=== PATIENT | male | born 1945 | race Caucasian/White ===

== ENCOUNTER 2021-04-18 08:56 | Outpatient (REF) | payer MEDICARE, SELFPAY ==
--- NOTE | ~2021-04-18 | CT_ITS ---
EXAMINATION: CT ANGIOGRAM OF THE CHEST, ABDOMEN AND PELVIS WITHOUT AND WITH CONTRAST CLINICAL INFORMATION: Abdominal aortic aneurysm without rupture. COMPARISON: 05/12/2019 CTA abdomen and pelvis, 04/22/2019 CTA neck. TECHNIQUE: Multidetector volumetric CT imaging of the chest, abdomen, and pelvis was performed before and after the administration of 100 mL of Omnipaque 350 intravenous contrast without immediate adverse reactions. 3D POSTPROCESSING: Multiple 3-D angiographic images were processed from the initial data set by the [facility] under concurrent physician supervision. DOSE LOWERING TECHNIQUES: This CT examination was performed using dose optimization techniques as appropriate, variously including the following: - Automated exposure control - Adjustment of mA and/or kV according to patient size (this includes techniques or standardized protocols for targeted exams where dose is matched to indication/reason for exam; i.e. extremities or head) - Use of iterative reconstruction technique DLP: 289 mGy-cm. FINDINGS: VASCULAR: ASCENDING AORTA: No evidence of aneurysm, dissection or stenosis. Minimal calcifications. AORTIC ARCH: Minimal atherosclerotic disease. Two-vessel branching pattern of the great vessels. The great vessels are patent. No evidence of aneurysm, dissection or stenosis of the aortic arch. DESCENDING AORTA: Calcified and noncalcified atherosclerotic disease with areas of shallow ulceration. No evidence of aneurysm, dissection or stenosis. ABDOMINAL AORTA: The patient is status post fenestrated aortobiiliac endovascular stent graft placement for abdominal aortic aneurysm. The aneurysm sac currently measures a maximum of 4.7 x 4.2 cm, previously 5.7 x 5.5 cm when similarly remeasured on the axial source images. There is limited assessment for endoleak without triple phase imaging, however the decreasing size of the aneurysm and lack of arterial phase contrast extravasation into the aneurysm sac is reassuring. CELIOMESENTERIC ARTERIES: The celiac artery and superior mesenteric artery contain stents within their proximal portions. The small size and streak artifact limits assessment within the stent, however there is contrast normally opacified the distal branches of both arteries. The inferior mesenteric artery is occluded at its origin from the aorta, however there is collateralized flow to the distal branches. RENAL ARTERIES: Both renal arteries contain stents and as mentioned above, patency within the actual stent is limited due to the small size and metallic artifact, however the distal branches of the renal arteries normally contrast-opacify and there are symmetric nephrograms identified. RIGHT ILIOFEMORAL ARTERIES: The endovascular stent graft extends into the right common iliac artery and is widely patent. The internal iliac artery is atherosclerotic and aneurysmal up to 1 cm, unchanged. Moderate atherosclerotic calcifications of the external iliac artery and common femoral artery which maintain patency. LEFT ILIOFEMORAL ARTERIES: The endovascular stent graft extends into the left common iliac artery and is patent. Severe calcified atherosclerotic disease of the left internal iliac artery proximally and patency cannot be confirmed. Contrast is seen within the internal iliac artery branches. Atherosclerotic disease at the origin of the external iliac artery with suspected moderate stenosis, similar to the prior study. Brvxuldh-fo-lyghow atherosclerotic disease continues to involve the remainder of the external iliac artery and common femoral artery which both maintain patency. Incidental note is made of a prominent left-sided welsh mortis artery. NONVASCULAR: LUNGS: There are 2 small oval perivascular nodules seen within the right lower lobe measuring 0.4 cm (series 8 image 292) and 0.6 cm (series 8 image 319). Calcified granuloma posterior left lower lobe. Mild dependent changes. Trachea is midline and central airways are patent. MEDIASTINUM: Heart size is normal. No pericardial effusion. Coronary artery calcifications. No mediastinal or hilar lymphadenopathy. Thyroid unremarkable. PLEURA: There is no pleural effusion. No pleural mass or thickening. LIVER, GALLBLADDER, AND BILIARY TREE: The liver is normal in size, shape, and attenuation. No focal hepatic lesion or biliary ductal dilatation is present. Layering material within the gallbladder lumen. No gallbladder wall-thickening or pericholecystic inflammatory changes. PANCREAS: Unremarkable SPLEEN: Unremarkable ADRENAL GLANDS: Unremarkable KIDNEYS AND URETERS: The kidneys are normal in size, shape, and attenuation. No hydronephrosis, hydroureter, or calculi seen. No perinephric stranding. Two simple Bosniak 1 right renal cysts, no further imaging followup recommended. BLADDER: Unremarkable GASTROINTESTINAL TRACT: Diverticulosis without CT evidence of diverticulitis. Appendix unremarkable. No evidence of bowel obstruction. ABDOMINAL WALL: No significant abdominal wall hernia. LYMPH NODES: No lymphadenopathy within the abdomen or pelvis by CT criteria. PELVIC VISCERA: Prostate enlargement measuring 5 cm in transverse dimension. Prostate calcifications. OSSEOUS STRUCTURES: Degenerative changes of the spine. No acute or suspicious osseous abnormality. CT/CT angio abdomen pelvis IMPRESSION: 1. The patient is status post fenestrated endovascular stent graft repair of the abdominal aortic aneurysm as detailed above. The stents within the celiac axis, superior mesenteric artery and renal arteries are presumably patent as the distal branches opacify with contrast material. Metallic artifact and stent small size limit assessment within the stent itself. 2. No evidence of endoleak on this single-phase CT and the aneurysm sac has significantly decreased in size. 3. Other chronic and nonacute findings as above.
[2021-04-18 10:17] LABS: Blood Urea Nitrogen 21 mg/dL (9-16); Estimated Glomerular Filt Rate 53
[2021-04-18] MEDS: iohexoL 350 MG/ML 100 ML INFUS..BTL IV (10:43)
== END 2021-04-18 08:57 | disposition home or self-care (01) ==
LOC: HO.CT 08:56
PROVIDERS: PCP Internal Medicine; Visit Provider Surgery Vascular Surgery
DX: I71.4 Abdominal aortic aneurysm, without rupture (principal)
CPT/HCPCS: 36415; 71275; 74174; 82565; 84520; Q9967

== ENCOUNTER → 2021-07-31 11:03 | Outpatient (BNVA) | payer MEDICARE, SELFPAY | PROVIDERS: PCP Internal Medicine; Visit Provider Surgery Vascular Surgery | DX: I65.23 Occlusion and stenosis of bilateral carotid arteries (principal); Z86.79 Personal history of other diseases of the circulatory system | CPT/HCPCS: 99212 ==

== ENCOUNTER 2022-03-08 14:17 | Outpatient (REF) | payer MEDICARE, SELFPAY ==
[2022-03-08 15:00] LABS: Blood Urea Nitrogen 19 mg/dL (9-16); Estimated Glomerular Filt Rate 53
== END 2022-03-08 14:18 | disposition home or self-care (01) ==
LOC: HO.LAB 14:17
PROVIDERS: PCP Internal Medicine; Visit Provider Surgery Vascular Surgery
DX: I71.40 Abdominal aortic aneurysm, without rupture, unspecified (principal)
CPT/HCPCS: 36415; 82565; 84520

== ENCOUNTER 2022-03-14 08:18 | Outpatient (REF) | payer MEDICARE, SELFPAY ==
--- NOTE | ~2022-03-14 | CT_ITS ---
EXAMINATION: CTA CHEST, ABDOMEN AND PELVIS WITH CONTRAST CLINICAL INFORMATION: Reason for Exam I71.4 - Abdominal aortic aneurysm, without rupture COMPARISON: CTA of the chest, abdomen and pelvis 04/18/2021. TECHNIQUE: Initial noncontrast CT through the abdomen and pelvis was performed followed by Multidetector volumetric imaging from the thoracic inlet through the pubic symphysis following administration of 85 ml Omnipaque 350. Sagittal and coronal reformatted images were obtained on the technologist's workstation. Additional 2-D coronal and sagittal reformatted images and axial 3-D maximum intensity projection MIP images are generated on the CT workstation. This CT examination was performed using dose optimization techniques as appropriate, variously including the following: *Automated exposure control *Adjustment of mA and/or kV according to patient size (this includes techniques or standardized protocols for targeted exams where dose is matched to indication/reason for exam; i.e. extremities or head) *Use of iterative reconstruction technique DLP: 559 mGy-cm VASCULAR FINDINGS: The thoracic aorta appears unremarkable without aneurysm or dissection. A two-vessel branching pattern of the aortic arch is seen with a short common trunk involving the innominate and left carotid. The great vessels are widely patent. Although not carried out for evaluation of the pulmonary arteries or pulmonary veins, no abnormality is seen. Again noted is a fenestrated aorto-biiliac stent graft beginning at the thoracoabdominal junction. The celiac, SMA and bilateral renal arteries are stented with continued good distal perfusion of branches. There is no evidence of an endoleak. Maximal sac size dimension is 4.1 cm, unchanged from prior. The common iliac stents are widely patent. The left internal iliac artery is diseased but patent distally. An origin right internal iliac artery stenosis is present and unchanged with post-stenotic dilatation. External iliac arteries and common femoral arteries demonstrate [id number] calcific plaque without significant stenosis. FINDINGS: CHEST: LUNG: Again seen are two 4 mm right lower lobe lung nodules, unchanged from prior (6:269 and 291) The lungs are otherwise clear without focal opacity or nodule. MEDIASTINUM: The mediastinum is normal. The central vascular structures are unremarkable. No hilar or mediastinal lymphadenopathy. PERICARDIUM/PLEURA: No significant effusion. No pleural mass or thickening. CHEST WALL/AXILLA: Unremarkable ABDOMEN/PELVIS: PERITONEAL SPACE: No significant free air or free fluid identified. LIVER, GALLBLADDER, BILIARY TREE: The liver is normal in size, shape, and attenuation. No focal hepatic lesion or biliary ductal dilatation is present. The gallbladder contains layering high density material, possibly gallstones but is otherwise unremarkable with no evidence of pericholecystic inflammatory changes. PANCREAS: Unremarkable. SPLEEN: Unremarkable. ADRENAL GLANDS: Unremarkable. KIDNEYS AND URETERS: The kidneys are normal in size, shape, and attenuation. Again noted are benign Bosniak class I right cysts which need no further imaging. No solid renal masses are seen. No hydronephrosis, hydroureter, or calculi seen. No perinephric stranding. BLADDER: Unremarkable. GASTROINTESTINAL TRACT: The small and large bowel are unremarkable. The appendix is unremarkable. ABDOMINAL WALL: No significant hernia is appreciated. LYMPH NODES: No lymphadenopathy. VASCULAR: The aorta appears normal.. The IVC appears unremarkable. PELVIC VISCERA: Moderate benign prostatic hyperplasia is again noted. OSSEUS STRUCTURES: Mild degenerative changes are noted in the spine. No bony destructive lesions are seen. CT/CT angio abdomen pelvis IMPRESSION: Stable appearance of fenestrated aorto-biiliac stent graft with no endoleak visualized and stable sac size. The stented celiac SMA and bilateral renal arteries remain widely patent. Other incidental findings described above. Fleischner guidelines were followed.
[2022-03-14] MEDS: iohexoL 350 MG/ML 100 ML INFUS..BTL IV (09:18)
== END 2022-03-14 08:19 | disposition home or self-care (01) ==
LOC: HO.CT 08:18
PROVIDERS: PCP Internal Medicine; Visit Provider Surgery Vascular Surgery
DX: I71.40 Abdominal aortic aneurysm, without rupture, unspecified (principal)
CPT/HCPCS: 71275; 74174; Q9967

== ENCOUNTER 2022-04-15 10:16 | Outpatient (REF) | payer MEDICARE, SELFPAY ==
--- NOTE | ~2022-04-15 | US_ITS ---
EXAMINATION: US EXTRACRANIAL CAROTID DUPLEX, BILATERAL CLINICAL INFORMATION: Atherosclerotic disease, carotid bruit COMPARISON: None TECHNIQUE: Real-time ultrasound and Doppler techniques (integrating B-mode 2-D vascular images, Doppler spectral analysis and color-flow Doppler imaging) were utilized to interrogate the extracranial carotid arteries, the vertebral arteries and proximal subclavian arteries bilaterally. The degree of stenosis is determined by criteria similar to NASCET. FINDINGS: Right Side: 1. There is moderate atherosclerotic plaque seen in the bifurcation/proximal ICA region. 2. The common carotid artery PSV proximally is 62 cm/s and distally 75 cm/s. 3. The proximal internal carotid artery velocities are 130 cm/s systolic and 31 cm/s diastolic. 4. The proximal external carotid artery PSV is 215 cm/s. 5. The vertebral artery shows antegrade flow. 6. The subclavian artery waveforms are normal. Left Side: 1. There is moderate atherosclerotic plaque seen in the bifurcation/proximal ICA region. 2. The common carotid artery PSV proximally is 70 cm/s and distally 72 cm/s. 3. The proximal internal carotid artery velocities are 129 cm/s systolic and 27 cm/s diastolic. 4. The proximal external carotid artery PSV is 93 cm/s. 5. The vertebral artery shows antegrade flow. 6. The subclavian artery waveforms are normal. US/US carotid duplex BI IMPRESSION: 1. RIGHT: Moderate, hemodynamically significant stenosis of the proximal right internal carotid artery corresponding to a 50-79% stenosis by velocity criteria. 2. LEFT: Moderate, hemodynamically significant stenosis of the proximal left internal carotid artery corresponding to a 50-79% stenosis by velocity criteria.
== END 2022-04-15 10:17 | disposition home or self-care (01) ==
LOC: HO.US 10:16
PROVIDERS: Visit Provider Surgery Vascular Surgery
DX: I65.23 Occlusion and stenosis of bilateral carotid arteries (principal)
CPT/HCPCS: 93880

== ENCOUNTER → 2022-04-23 09:41 | Outpatient (BNVA) | payer MEDICARE, SELFPAY | PROVIDERS: PCP Internal Medicine; Visit Provider Surgery Vascular Surgery | DX: I65.23 Occlusion and stenosis of bilateral carotid arteries (principal); I71.40 Abdominal aortic aneurysm, without rupture, unspecified | CPT/HCPCS: 99212 ==

== ENCOUNTER 2023-02-26 10:00 | Outpatient (REF) | payer MEDICARE, SELFPAY ==
[2023-02-26 10:42] LABS: Blood Urea Nitrogen 17 mg/dL (9-16)
== END 2023-02-26 10:01 | disposition home or self-care (01) ==
LOC: HO.LAB 10:00
PROVIDERS: PCP Internal Medicine; Visit Provider Surgery Vascular Surgery
DX: I71.40 Abdominal aortic aneurysm, without rupture, unspecified (principal)
CPT/HCPCS: 36415; 84520

== ENCOUNTER 2023-03-04 08:53 | Outpatient (REF) | payer MEDICARE, SELFPAY ==
--- NOTE | ~2023-03-04 | CT_ITS ---
STUDY PERFORMED: CTA ABDOMEN AND PELVIS WITHOUT AND WITH CONTRAST HISTORY: Abdominal aortic aneurysm follow-up. DESCRIPTION: Routine abdomen and pelvis CTA protocol with contrast was performed. 80 mL of Omnipaque 350 was administered. 3D POSTPROCESSIN-D MIP images were processed from the initial data set by the radiologic technologist on the technologist workstation under concurrent physician supervision. DOSE LOWERING TECHNIQUES: This CT examination was performed using dose optimization techniques as appropriate, variously including the following: - Automated exposure control - Adjustment of mA and/or kV according to patient size (this includes techniques or standardized protocols for targeted exams where dose is matched to indication/reason for exam; i.e. extremities or head) - Use of iterative reconstruction technique DOSE LENGTH PRODUCT: 421.5 mGy-cm COMPARISON: CTA abdomen and pelvis 03/14/2022. FINDINGS: VASCULAR: ABDOMINAL AORTA: Infrarenal abdominal aortic aneurysm managed with a fenestrated aortobiiliac endograft. The excluded aneurysm sac has decreased in size measuring 4.1 x 3.7 cm proximally compared to 4.4 x 3.9 cm and 4.0 x 3.8 cm distally compared to 4.3 x 4.3 cm. A multiphase exam was not acquired. There is no evidence of endoleak on single phase imaging. There is stable appearing lamellated calcium in the excluded aneurysm sac. RIGHT ILIAC ARTERY: Good apposition of the stent graft limb in the common iliac artery. There is mild to moderate atherosclerosis without hemodynamically significant disease in the iliac and common femoral arteries. There is a mild to moderate stenosis of the proximal right SFA.. 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 LEFT ILIAC ARTERY: Good apposition of the stent graft limb in the common iliac artery. There is mild to moderate atherosclerosis without hemodynamically significant disease in the external iliac and common femoral arteries. The internal iliac artery is occluded proximally and then reconstitutes. CELIOMESENTERIC ARTERIES: The celiac stent is patent. The celiac branch vessels are patent. The SMA stent is patent. The inferior mesenteric artery arises from the excluded aneurysm sac and then reconstitutes distally. RENAL ARTERIES: The right renal artery stent is patent. The left renal artery stent is patent. The nephrograms are symmetric. NONVASCULAR: Lung Bases: Motion artifact obscures the lung bases. Tiny calcified granulomas in the bilateral lung bases. No follow-up imaging as per Fleischner Society guidelines. Liver, Gallbladder and Biliary Tree: The liver is normal in size, shape, and attenuation. No focal hepatic lesion or biliary ductal dilatation is present. Cholelithiasis without evidence of cholecystitis. Pancreas: No discrete pancreatic mass. No ductal dilatation. Spleen: Normal. Adrenal Glands: Mild smooth thickening of the bilateral adrenal glands without discrete measurable nodule. Kidneys and Ureters: Symmetric nephrograms. Simple right renal cyst. No follow-up imaging is recommended. No nephrolithiasis or hydronephrosis. Bladder: Unremarkable. Gastrointestinal Tract: Small bowel is normal in caliber. The large bowel is normal in caliber. Mild colonic diverticulosis. No inflammatory change. Abdominal Wall: No significant hernia is appreciated. Lymph Nodes: No lymphadenopathy. Pelvic Viscera: The prostate is enlarged. Osseous Structures: Degenerative changes in the spine. CT/CT angio abdomen pelvis IMPRESSION: Infrarenal abdominal aortic aneurysm status post endograft. The excluded aneurysm sac has decreased in size with no visible endoleak on single phase imaging. Fleischner guidelines were followed.
[2023-03-04] MEDS: iohexoL 350 MG/ML 100 ML INFUS..BTL IV (09:59)
[2023-03-05 10:03] LABS: Creatinine POC 0.9 mg/dL (0.5-1.4); GFR POC 60
== END 2023-03-04 08:54 | disposition home or self-care (01) ==
LOC: HO.CT 08:53
PROVIDERS: PCP Internal Medicine; Visit Provider Surgery Vascular Surgery
DX: I71.40 Abdominal aortic aneurysm, without rupture, unspecified (principal)
CPT/HCPCS: 74174; 82565; Q9967

== ENCOUNTER 2023-04-03 09:47 | Outpatient (REF) | payer MEDICARE, SELFPAY ==
--- NOTE | ~2023-04-03 | US_ITS ---
EXAMINATION: US EXTRACRANIAL CAROTID DUPLEX, BILATERAL CLINICAL INFORMATION: Bilateral carotid stenoses. COMPARISON: 04/15/2022. TECHNIQUE: Real-time ultrasound and Doppler techniques (integrating B-mode 2-D vascular images, Doppler spectral analysis and color-flow Doppler imaging) were utilized to interrogate the extracranial carotid arteries, the vertebral arteries and proximal subclavian arteries bilaterally. The degree of stenosis is determined by criteria similar to NASCET. FINDINGS: Right Side: 1. There is moderate atherosclerotic plaque seen in the bifurcation/proximal ICA region. 2. The common carotid artery PSV proximally is 72 cm/s and distally 81 cm/s. 3. The proximal internal carotid artery velocities are 130 cm/s systolic and 22 cm/s diastolic. 4. The proximal external carotid artery PSV is 305 cm/s. 5. The vertebral artery shows antegrade flow. 6. The subclavian artery waveforms are normal. Left Side: 1. There is moderate atherosclerotic plaque seen in the bifurcation/proximal ICA region. 2. The common carotid artery PSV proximally is 78 cm/s and distally 55 cm/s. 3. The proximal internal carotid artery velocities are 149 cm/s systolic and 28 cm/s diastolic. 4. The proximal external carotid artery PSV is 83 cm/s. 5. The vertebral artery shows antegrade flow. 6. The subclavian artery waveforms are normal. When comparison is made to the 04/15/2022 study, disease category on both sides is unchanged. US/US carotid duplex BI IMPRESSION: 1. RIGHT: Moderate, hemodynamically significant stenosis of the proximal right internal carotid artery corresponding to a 50-79% stenosis by velocity criteria. A right external carotid artery stenosis is present with elevated velocities increasing from 215 to 305 cm/s. 2. LEFT: Moderate, hemodynamically significant stenosis of the proximal left internal carotid artery corresponding to a 50-79% stenosis by velocity criteria. 3. When comparison is made to the prior study, disease category on both sides is unchanged.
== END 2023-04-03 09:48 | disposition home or self-care (01) ==
LOC: HO.US 09:47
PROVIDERS: PCP Internal Medicine; Visit Provider Surgery Vascular Surgery
DX: I65.23 Occlusion and stenosis of bilateral carotid arteries (principal)
CPT/HCPCS: 93880

== ENCOUNTER 2023-05-06 08:53 | Outpatient (AMB) | payer MEDICARE, SELFPAY ==
[2023-05-06 08:54] VITALS: BP 134/64; PULSE 60; O2SAT 97; BMI 27.6
--- NOTE | 2023-05-06 08:54 | MHC.OFFVIS ---
Intake Vital Signs 05/06/23 08:54 Height 5 ft 5 in Weight 166 lb BMI 27.6 BP 134/64 Blood Pressure Location Lt brachial Position Sitting Pulse 60 Pulse Source Pulse Oximeter Pulse Oximetry (%) 97 Oxygen Delivery Method Room Air Intake Visit Reasons: 1 yr follow up carotid & AAA Intake Note: 1 year follow up carotid stenosis and AAA s/p Carotid US 04/03/23 and CTA Abd/pelvis 03/04/23 w/ hx of 08/25/2019 Fenestrated endograft repair aorta @ [facility] by Dr. Caal. Pt states no issues Accompanied by: Spouse Allergies No Known Allergies Allergy (Verified 05/06/23 09:04) HPI 1 yr follow up carotid & AAA HPI Details Very pleasant 77-year-old gentleman presents for routine surveillance follow-up regarding his aortic aneurysm in carotids. It has been nearly 3 years since he had a fenestrated aortic endograft placed at [facility]. He has been also following me in terms of his carotids. He is asymptomatic. Currently following healthy regiment and he has lost nearly 15 lb through diet and exercise. He now presents for routine surveillance follow-up. [facility] Medical History Glaucoma Neuropathy Elevated prostate specific antigen (PSA) CKD (chronic kidney disease) Benign neoplasm of colon Gout PAD (peripheral artery disease) HTN (hypertension) CVD (cardiovascular disease) Surgical History Hx of tonsillectomy H/O tooth extraction Hx of colonoscopy Family History Daughter No problems noted. Father No problems noted. Mother No problems noted. Social History Patient Tobacco Use Status: Former Tobacco user Tobacco use type: Cigarette Review of Systems Const All systems reviewed & are unremarkable except as noted in HPI and below Reports no additional complaints ENT Reports Normal hearing present Card Denies chest pain, Denies chest pain at rest, Denies chest pain with activity and Denies pedal edema Resp Denies cough GI Denies abdominal pain Musc Denies abnormal gait, Denies muscle cramps and Denies radiating pain into limb Skin/Breast Denies skin ulcer and Denies wounds Neuro Reports Normal hearing present and Denies abnormal gait Psych Reports no additional complaints Physical Exam Vital Signs: Last Vital Signs Pulse 60 05/06/23 08:54 BP 134/64 05/06/23 08:54 Pulse Ox 97 05/06/23 08:54 Oxygen Delivery Method Room Air 05/06/23 08:54 BMI result Body Mass Index 27.6 Const General: cooperative, healthy appearing and comfortable Orientation/consciousness: oriented to person, oriented to place and oriented to time HEENT Head: Yes normal to inspection Neck Neck: Yes normal visual inspection Carotids: no bruits Chest Chest palpation & inspection: normal inspection of the chest Resp Effort & Inspection: normal respiratory effort and able to speak in complete sentences Auscultation: clear to auscultation bilaterally, no crackles, no rales, no rhonchi and no wheezes Cardio Rate: regular rate Rhythm: regular rhythm Heart sounds: S1 normal heart sound present and S2 normal heart sound present Bruits: no carotid bruits Peripheral pulses: Peripheral pulses 2+ throughout GI Inspection: Yes normal to inspection Skin Wounds: no wounds Hair: normal Neuro General: oriented to person, oriented to place and oriented to time Cranial nerves: Yes CN's II-XII intact bilaterally and Yes Normal hearing present Cognition (Neuro): normal cognition Motor exam (neuro): 5/5 motor strength present throughout Extrem Other: venous exam: No significant superficial varicosities or spider telangiectasias, minimal edema General: No clubbing, No cyanosis and No edema Psych Appearance: grossly normal Mental Status: mental status grossly normal Speech and movement: Normal speech and movement present Results Reviewed Results Reviewed: CT angiogram dated 03/04/2023 demonstrates aortic endograft appropriately placed with no evidence of endoleak. Carotid ultrasound dated 04/03/2023 demonstrates right-sided and left-sided stenosis of 50-79% with a peak systolic velocity on the right of 130 and on the left of 149 leading me to believe both sides are closer to the 50% brynn. Written report and images of both were reviewed. Assessment & Plan Assessment & Plan (1) Abdominal aortic aneurysm: Comment: 08/25/2019 - fenestrated endograft repair aorta performed at [facility] Code(s): I71.4 - Abdominal aortic aneurysm, without rupture Qualifiers: Abdominal aorta location: unspecified Presence of rupture: without rupture Qualified Code(s): I71.40 - Abdominal aortic aneurysm, without rupture, unspecified Plan: In short patient appears to be doing well with his fenestrated aortic endograft. Has no interval issues. Surveillance CT scan demonstrates appropriately placed with no evidence of endoleak. Will plan for surveillance follow-up in 1 year's time. (2) Bilateral carotid artery stenosis: Code(s): I65.23 - Occlusion and stenosis of bilateral carotid arteries Plan: In short patient has asymptomatic carotid disease. We have reviewed signs and symptoms of a stroke. We also discussed risk factor modification inclusive a healthy diet low in cholesterol. The patient will follow up with us with surveillance ultrasound of the carotids 1 year. Should there be any changes or signs or symptoms of a stroke we will be happy to see them back sooner. Thank you for allowing us to participate in this patient's care. If there are any questions or concerns please do not hesitate to contact us. Orders: Orders CT angio abdomen pelvis 364 Days I71.40 - Abdominal aortic aneurysm, without rupture, unspecified US carotid duplex BI 364 Days I65.23 - Occlusion and stenosis of bilateral carotid arteries Blood Urea Nitrogen 364 Days I71.40 - Abdominal aortic aneurysm, without rupture, unspecified Creatinine 364 Days I71.40 - Abdominal aortic aneurysm, without rupture, unspecified Coding Level of Care Code Est Pt Level 4 (66088) Diagnoses Abdominal aortic aneurysm (AAA) without rupture, unspecified part I71.40 Abdominal aorta location: unspecified Presence of rupture: without rupture Bilateral carotid artery stenosis I65.23
== END 2023-05-06 09:38 | disposition home or self-care (01) ==
PROVIDERS: PCP Internal Medicine; Visit Provider Surgery Vascular Surgery
DX: I71.40 Abdominal aortic aneurysm, without rupture, unspecified (principal); I65.23 Occlusion and stenosis of bilateral carotid arteries
CPT/HCPCS: 99214

== ENCOUNTER → 2023-05-06 08:53 | Outpatient (BNVA) | payer MEDICARE, SELFPAY | PROVIDERS: PCP Internal Medicine; Visit Provider Surgery Vascular Surgery | DX: I65.23 Occlusion and stenosis of bilateral carotid arteries (principal); I71.40 Abdominal aortic aneurysm, without rupture, unspecified | CPT/HCPCS: 99212 ==

== ENCOUNTER 2024-04-26 09:44 | Outpatient (REF) | payer MEDICARE, SELFPAY ==
--- NOTE | ~2024-04-26 | US_ITS ---
EXAMINATION: US EXTRACRANIAL CAROTID DUPLEX, BILATERAL CLINICAL INFORMATION: Carotid stenosis. COMPARISON: 04/15/2022 and 04/03/2023. TECHNIQUE: Real-time ultrasound and Doppler techniques (integrating B-mode 2-D vascular images, Doppler spectral analysis and color-flow Doppler imaging) were utilized to interrogate the extracranial carotid arteries, the vertebral arteries and proximal subclavian arteries bilaterally. The degree of stenosis is determined by criteria similar to NASCET. FINDINGS: Right Side: 1. There is moderate atherosclerotic plaque seen in the bifurcation/proximal ICA region. 2. The common carotid artery PSV proximally is 60 cm/s and distally 81 cm/s. 3. The proximal internal carotid artery velocities are 160 cm/s systolic and 35 cm/s diastolic. 4. The proximal external carotid artery PSV is 302 cm/s. 5. The vertebral artery shows antegrade flow. 6. The subclavian artery waveforms are normal. Left Side: 1. There is severe atherosclerotic plaque seen in the bifurcation/proximal ICA region. 2. The common carotid artery PSV proximally is 44 cm/s and distally 45 cm/s. 3. The proximal internal carotid artery velocities are 168 cm/s systolic and 27 cm/s diastolic. 4. The proximal external carotid artery PSV is 168 cm/s. 5. The vertebral artery shows antegrade flow. 6. The subclavian artery waveforms are normal. US/US carotid duplex BI IMPRESSION: 1. Right: Moderate, hemodynamically significant stenosis of the proximal right internal carotid artery corresponding to a 50-79% stenosis by velocity criteria. 2. Left: Moderate, hemodynamically significant stenosis of the proximal left internal carotid artery corresponding to a 50-79% stenosis by velocity criteria. 3. There is no change in the category severity of disease when compared to the previous study dated 04/03/2023. Electronically signed by: Scott Garcia MD 04/29/2024 11:53 AM EST
[2024-04-26 12:05] LABS: Blood Urea Nitrogen 18 mg/dL (9-16); Estimated Glomerular Filt Rate 52
== END 2024-04-26 09:45 | disposition home or self-care (01) ==
LOC: HO.US 09:44
PROVIDERS: PCP Internal Medicine; Visit Provider Surgery Vascular Surgery
DX: I65.23 Occlusion and stenosis of bilateral carotid arteries (principal); I71.40 Abdominal aortic aneurysm, without rupture, unspecified
CPT/HCPCS: 36415; 82565; 84520; 93880

== ENCOUNTER 2024-05-03 10:07 | Outpatient (REF) | payer MEDICARE, SELFPAY ==
[2024-05-03] MEDS: iohexoL 350 MG/ML 100 ML INFUS..BTL IV (10:54)
== END 2024-05-03 10:08 | disposition home or self-care (01) ==
LOC: HO.CT 10:07
PROVIDERS: PCP Internal Medicine; Visit Provider Surgery Vascular Surgery
DX: I71.40 Abdominal aortic aneurysm, without rupture, unspecified (principal)
CPT/HCPCS: 74174; Q9967

== ENCOUNTER → 2024-05-03 10:10 | Outpatient (BNV) | payer MEDICARE, SELFPAY | PROVIDERS: PCP Internal Medicine; Visit Provider Radiology Diagnostic Radiology | DX: I71.40 Abdominal aortic aneurysm, without rupture, unspecified (principal) | CPT/HCPCS: 74174 ==

== ENCOUNTER 2024-05-18 10:03 | Outpatient (AMB) | payer MEDICARE, SELFPAY ==
--- NOTE | 2024-05-18 10:05 | A.OFFVIS_ITS ---
Vital Signs 05/18/24 10:06 Height 5 ft 5 in Weight 166 lb BMI 27.6 Intake Visit Reasons: 1yr follow up s/p Carotid 04/26/24 Intake Note: 1 yr carotid follow up s/p US 04/26/24. No complaints. Accompanied by: Spouse Allergies No Known Allergies Allergy (Verified 05/18/24 10:12) HPI HPI 1yr follow up s/p Carotid 04/26/24: Details: Very pleasant 78-year-old gentleman presents for annual surveillance follow-up regarding his aortic aneurysm and carotid disease. He has had annual surveillance follow-up. His aortic endograft was placed at [facility] nearly 4 years ago with fenestration. He has been doing extremely well since that time. He now presents for routine follow-up. [facility] Medical History Glaucoma Neuropathy Elevated prostate specific antigen (PSA) CKD (chronic kidney disease) Benign neoplasm of colon Gout PAD (peripheral artery disease) HTN (hypertension) CVD (cardiovascular disease) Surgical History Hx of tonsillectomy H/O tooth extraction Hx of colonoscopy Family History Daughter No problems noted. Father No problems noted. Mother No problems noted. Social History Patient Tobacco Use Status: Former Tobacco user Tobacco use type: Cigarette Review of Systems Const All systems reviewed & are unremarkable except as noted in HPI and below Reports no additional complaints ENT Reports Normal hearing present Card Denies chest pain, Denies chest pain at rest, Denies chest pain with activity and Denies pedal edema Resp Denies cough GI Denies abdominal pain Musc Denies abnormal gait, Denies muscle cramps and Denies radiating pain into limb Skin/Breast Denies skin ulcer and Denies wounds Neuro Reports Normal hearing present and Denies abnormal gait Psych Reports no additional complaints Physical Exam Vital Signs: BMI result Body Mass Index 27.6 Const General: cooperative, healthy appearing and comfortable Orientation/consciousness: oriented to person, oriented to place and oriented to time HEENT Head: Yes normal to inspection Neck Neck: Yes normal visual inspection Carotids: no bruits Chest Chest palpation & inspection: normal inspection of the chest Resp Effort & Inspection: normal respiratory effort and able to speak in complete sentences Auscultation: clear to auscultation bilaterally, no crackles, no rales, no rhon chi and no wheezes Cardio Rate: regular rate Rhythm: regular rhythm Heart sounds: S1 normal heart sound present and S2 normal heart sound present Bruits: no carotid bruits Peripheral pulses: Peripheral pulses 2+ throughout GI Inspection: Yes normal to inspection Skin Wounds: no wounds Hair: normal Neuro General: oriented to person, oriented to place and oriented to time Cranial nerves: Yes CN's II-XII intact bilaterally and Yes Normal hearing present Cognition (Neuro): normal cognition Motor exam (neuro): 5/5 motor strength present throughout Extrem Other: venous exam: No significant superficial varicosities or spider telangiectasias, minimal edema General: No clubbing, No cyanosis and No edema Psych Appearance: grossly normal Mental Status: mental status grossly normal Speech and movement: Normal speech and movement present Results Reviewed Results Reviewed: CT angiogram dated 05/03/2024 demonstrates no evidence of endoleak. Images were reviewed only. It has been over 16 days yet radiology has not provided a report. Carotids demonstrate bilateral 50-79% stenosis with a peak systolic of 160 on the right and 168 on the left. Written report and images were reviewed. Assessment & Plan Assessment & Plan (1) Abdominal aortic aneurysm: Comment: 08/25/2019 - fenestrated endograft repair aorta performed at [facility] Code(s): I71.4 - Abdominal aortic aneurysm, without rupture Category: Medical Qualifiers: Abdominal aorta location: unspecified Presence of rupture: without rupture Qualified Code(s): I71.40 - Abdominal aortic aneurysm, without rupture, unspecified Plan: In short patient has stable aortic endograft. We have discussed the pathophysiology of aortic aneurysms and the risk of ruptures. We have discussed rupture risk based on size. In addition we have discussed conservative measures and risk factor modification for prevention of increase in size of the aneurysm. the patient is scheduled for surveillance follow-up in approximately 1 year. Thank you for allowing us to participate in the care of this patient (2) Bilateral carotid artery stenosis: Code(s): I65.23 - Occlusion and stenosis of bilateral carotid arteries Category: Medical Plan: In short patient has asymptomatic carotid disease. We have reviewed signs and symptoms of a stroke. We also discussed risk factor modification inclusive a healthy diet low in cholesterol. The patient will follow up with us with surveillance ultrasound of the carotids 1 year. Should there be any changes or signs or symptoms of a stroke we will be happy to see them back sooner. Thank you for allowing us to participate in this patient's care. If there are any questions or concerns please do not hesitate to contact us. Orders: Orders CT angio abdomen pelvis 1 Year I71.40 - Abdominal aortic aneurysm, without rupture, unspecified US carotid duplex BI 1 Year I65.23 - Occlusion and stenosis of bilateral carotid arteries Blood Urea Nitrogen 1 Year I71.40 - Abdominal aortic aneurysm, without rupture, unspecified Creatinine 1 Year I71.40 - Abdominal aortic aneurysm, without rupture, unspecified Coding Level of Care Code Est Pt Level 4 (58931) Complex EM visit Add On G2211 Diagnoses Abdominal aortic aneurysm (AAA) without rupture, unspecified part I71.40 Abdominal aorta location: unspecified Presence of rupture: without rupture Bilateral carotid artery stenosis I65.23
[2024-05-18 10:06] VITALS: BMI 27.6
--- OUTSIDE RECORDS SUMMARY | 2024-05-18 10:08 | XMS_ITS | Continuity of Care Document ---
Author Name [facility] Organization [facility] Care Team Providers Care Bailer Operators Supervisor Name Role Phone [facility] Unavailable Unavailable Problems Combined list of problems from Department of Defense and Veterans Affairs facilities. It does not include entries that were removed or entered in error. Problem Status Onset Date Problem Type Date of Resolution Comments Source Tubular adenoma of colon Active 05/25/20 12 Condition May 11, 2018 Entered By: Wilmer GRIDER Comment: due 05/18-complete d [facility] Benign essential hypertension Active Condition [facility] Bilateral cataracts Active Condition [facility] Bilateral hearing loss Active Condition Jun 27, 2023 Entered By: CHICA SEGOVIA Comment: wears hearing aids [facility] Cervicalgia Active Condition [facility] Chronic kidney disease stage 3 Active Condition [facility] Degeneration of intervertebral disc Active Condition [facility] Elevated PSA Active Condition Jan 30, 2015 Entered By: Wilmer GRIDER Comment: neena Keys 2014 Entered By: Wilmer GRIDER Comment: PSA as high as 12, neg biospsies [facility] Glaucoma Active Condition Jun 27 Entered By: CHICA SEGOVIA Comment: astigmatism [facility] Gout Active Condition [facility] History of circulatory system disease Active Condition Jun 27, 2023 Entered By: CHICA SEGOVIA Comment: hx AAA with repair; no longer requires Plavix per vascular surgery [facility] Raynaud's disease Active Condition [facility] Under care of doctor Active Condition Jun 27, 2023 Entered By: CHICA SEGOVIA Comment: community PCP Dr. Thomas 2023 Entered By: CHICA SEGOVIA Comment: nephrology Dr. Santana 2023 Entered By: CHICA SEGOVIA Comment: Kay 2023 Entered By: CHICA SEGOVIA Comment: vascular surgery Dr. Knox 2023 Entered By: CHICA SEGOVIA Comment: ophthamology [facility] Shingles Inactive Condition 06/26/2023 [facility] Diagnosis: ICD-10-CM I10 Essential (primary) hypertension Active Diagnosis [place] Medications Combined list of outpatient medications from Department of Defense and Veterans Affairs facilities.Medications provided include 1) outpatient medications from the last 15 months, and 2) patient-reported medications. Medication Details Route Status Patient Instructions Prescription Expires Prescription Number Last Dispense Date Ordering Provider Order Date Order Qty Source ALLOPURINOL 100MG TAB TAKE ONE TABLET BY MOUTH DAILY [place]AL ACTIVE [place] [facility] AMLODIPINE BESYLATE 10MG TAB TAKE ONE TABLET BY MOUTH ONCE DAILY ORAL [place]IVE [place] [facility] ASPIRIN 81MG TAB,EC TAKE ONE TABLET BY MOUTH ONCE DAILY ORAL ACTIVE MATT-GR SHARATH,CYN [place] 2018 [facility] ATORVASTATI N CA 80MG TAB TAKE ONE-HALF TABLET BY MOUTH AT BEDTIME ORAL ACTIVE MATT[place]HCYN [place] 2021 [facility] CARVEDILOL 6.25MG TAB TAKE ONE TABLET BY MOUTH TWICE DAILY ORAL ACTIVE MATT-GR SHARAHT,[place] [facility] LATANOPROST 0.005% SOLN,OPH INSTILL 1 DROP INTO EACH EYE DAILY OPHTHA LMIC ACTIVE [place]ATT[place] [facility] Immunizations Combined list of available immunizations from the Department of Defense and Veterans Affairs facilities. Immunization Series Date Given Administered By Site Reaction Lot Number CVX Code Drug Particle Board Supervisor Status Comments Source INFLUENZA, UNSPECIFIED FORMULATION 2023 88 complet ed [facility] INFLUENZA, UNSPECIFIED FORMULATION 2022 88 complet ed [facility] TDAP 2022 115 complet ed [facility] INFLUENZA, UNSPECIFIED FORMULATION 2021 88 complet ed [facility] COVID-19 (MODERNA), MRNA, LNP-S, PF, 100 MCG OR 50 MCG DOSE 3 2020 207 complet ed MOD; [id number]; 2 [place] COVID-19 (MODERNA), MRNA, LNP-S, PF, 100 MCG/0.5 ML DOSE 2 2020 207 complet ed MOD; [id number]; 1 [facility] COVID-19 (MODERNA), MRNA, LNP-S, PF, 100 MCG/0.5 ML DOSE 1 2020 207 complet ed MOD; [id number]; 1 [facility] INFLUENZA, UNSPECIFIED FORMULATION 2019 88 complet ed [facility] INFLUENZA, SEASONAL, INJECTABLE 2017 141 complet ed [facility] FLU,3 YRS (HISTORICAL) 2016 88 complet ed [facility] PNEUMOCOCCAL CONJUGATE PCV 13 2016 133 complet ed [facility] TD(ADULT) UNSPECIFIED FORMULATION 2014 139 complet ed [facility] TD(ADULT) UNSPECIFIED FORMULATION 2014 139 complet ed [facility] FLU,3 YRS (HISTORICAL) 2013 88 complet ed 3, 012 [facility] ZOSTER (HISTORICAL) 2011 121 complet ed IMMUNIZAT ION RECORD [facility] PNEUMOCOCCAL POLYSACCHARID E PPV23 2010 33 complet ed IMMUNIZAT ION RECORD [facility] Vital Signs Combined list of inpatient and outpatient Vital Signs from Department of Defense and Veterans Affairs, ranging from 12 months to all on record, depending upon the facility. Vital Sign Value Date Comments Source SYSTOLIC BLOOD PRESSURE 144 06/26/2023 09:56:11 [place] DIASTOLIC BLOOD PRESSURE 77 06/26/2023 09:56:11 [place] PULSE OXIMETRY 99 06/26/2023 09:56:11 [place] WEIGHT 172 06/26/2023 09:56:11 [place] BMI 28kg/m2 06/26/2023 09:56:11 [place] HEIGHT 66 06/26/2023 09:56:11 [place] TEMPERATURE 98 06/26/2023 09:56:11 [place] PULSE 55 06/26/2023 09:56:11 [place] RESPIRATION 20 06/26/2023 09:56:11 [place] Encounters Combined list of: 1) Encounters from Department of Veterans Affairs facilities going back up to thelast 18 months. 2) Encounters from the Department of Defense facilities going back up to 280 months. Location Location Details Encounter Type Encounter Number Reason For Visit Attending Provider ADM Date DC Date Status Disposition Source [facility] Outpatient Encounter [id number] 03/02 [facility] Encounter [id number] 06/02 [facility] Outpatient Encounter [id number] 06/25 [facility] Out[facility] [id number] 06/25 [facility] [id number] 06/26 [facility] [place] OFFICE O/P EST MOD 30 MIN [id number] Diagnos is: ICD-10- CM I10 Essenti al (primar y) hyperte nsion<b r/> JULIETTESAMIRA NDRA C 06/26 [facility] Social History Combined list of available smoking, tobacco, and other social history from Department of Defense and Veterans Affairs facilities. Social History Type Response Date Comment Source Tobacco smoking status [facility] VA-TOBACCO FORMER USER 06/26/2023 [place] History of tobacco use VA-TOBACCO QUIT 15 YRS OR MORE 06/26/2023 [place] History of tobacco use VA-TOBACCO FORMER USER 06/26/2023 [facility] History of tobacco use VA-TOBACCO FORMER USER 06/27/2022 [facility] [place] [facility] History of tobacco use VA-TOBACCO FORMER USER 04/24/2021 [place] History of tobacco use VA-TOBACCO FORMER USER 05/10/2020 [place] History of tobacco use QUIT TOBACCO USE > 7 YEARS AGO 07/24/2017 Quit 20 years ago [facility] History of tobacco use QUIT TOBACCO USE > 7 YEARS AGO 02/01/2016 quit ~ 15 yrs ago [place] Plan of Care List of future care activities from Department of Veterans Affairs facilities. Additional future care activities may be listed in the Assessment and Plan section. Date/Time Care Activity Care Activity Detail Facili ty 06/24/2024 AMBULATORY - MEDICINE AMBULATORY - MEDICI [place]
--- OUTSIDE RECORDS SUMMARY | 2024-05-18 10:08 | XMS_ITS | Encounter Summary ---
Author Name Department of [facility] ([place]) Organization Department of [facility] ([place]) Address [address] [place] [address] Care Team Providers Care Front Desk Attendant Name Role Phone CHICA SEGOVIA Primary Care Provider Unavailabl e Insurance Providers: All historical and current Section Date Range: From patient's date of to the date document was created. This section includes the names of all active insurance providers for the patient. Insurance Provider Type of Coverage Plan Name Start of Policy Coverage End of Policy Coverage Group Number Member ID Insurance Provider's Telephone Number Policy Willis's Name Patient's Relationship to Policy Willis [place] SUPPLEMEN TAL MEDEX 2 Jun 02, 2019 [id number] [place] PATIENT MEDICARE (WNR) MEDICARE (M) PART B Oct 31, 2009 PART B [id number] [place] PATIENT MEDICARE (WNR) MEDICARE (M) PART A Oct 31, 2009 PART A [id number] [place] PATIENT [facility] ([facility] MEDICARE ADVANTAGE [facility] ([facility]) Jun 02, 2015 [id number] [place] PATIENT Selected Encounter This section includes the information on record at NH for the Encounter. Date/Time Encounter Type Encounter Description Reason Pro vider Source Jun 26, 2023 09:57 AM Outpatient Encounter PRIMARY CARE/MEDICINE IHE Encounter Template Text not used by NH Social History: Smoking Status (Most current) and Tobacco Use (All prior to encounter date) This section includes the most current, and the historical, smoking and tobacco- related health factors from the NH facility where the Encounter took place. Current Smoking Status This section includes the most current smoking, or tobacco-related health factor, from the [place] facility where the Encounter took place. Date/Time Current Smoking Status Comment Navneet eva Jun 26, 2023 09:57 AM VA-TOBACCO FORMER USER [facility] Tobacco Use History This section includes a history of the smoking, or tobacco-related health factors, that were collected on or before the date of the Encounter. The data comes from the [place] facility where the Encounter took place. Date/Time Smoking Status/Tobac co Use Comment Facility Jun 26, 2023 09:57 AM VA-TOBACCO QUIT 15 YRS OR MORE [facility] Jun 27, 2022 09:48 AM VA-TOBACCO FORMER USER [facility] Jun 27, 2022 09:48 AM VA-TOBACCO QUIT 15 YRS OR MORE [facility] Jul 24, 2017 06:17 PM QUIT TOBACCO USE > 7 YEARS AGO Quit 20 years ago [facility] Encounter Notes: All associated encounter notes This section contains the clinical notes associated to the Encounter. Date/Time Encounter Note(s) Provider Source Jun 26, 2023 09:57 AM PREVENTIVE MEDICIN E NURSING NOTE: LOCAL TITLE: CLINICAL REMINDERS/NURSING STANDARD TITLE: PREVENTIVE MEDICINE NURSING NOTE DATE OF NOTE: JUN 26, 2023@09:57 ENTRY DATE: JUN 26, 2023@09:57:40 AUTHOR: TONO GUZMAN EXP COSIGNER: URGENCY: STATUS: COMPLETED CLINICAL REMINDERS/NURSING Has ADDENDA Tobacco Pack Year History: Patient used cigarettes in the past, but quit and does not currently use them: Quit smoking GREATER THAN OR EQUAL to 15 years ago. Advance Directive Screen MH AD: Patient has an up-to-date Advance Directive at an outside, non-vt facility and was asked to forward a copy to his/her clinician. Comment: [place] will bring copy of his advane directives. Suicide Screen: C-SSRS Screening [place] Suicide Severity Rating Scale (C-SSRS) screener 1. Over the past month, have you wished you were or wished you could go to sleep and not wake up? No 2. Over the past month, have you had any actual thoughts of killing yourself? No 3. Over the past month, have you been thinking about how you might do this? Response not required due to responses to other questions. 4. Over the past month, have you had these thoughts and had some intention of acting on them? Response not required due to responses to other questions. 5. Over the past month, have you started to work out or worked out the details of how to kill yourself? Response not required due to responses to other questions. 6. If yes, at any time in the past month did you intend to carry out this plan? Response not required due to responses to other questions. 7. In your lifetime, have you ever done anything, started to do anything, or prepared to do anything to end your life (for example, collected pills, obtained a gun, gave away valuables, went to the roof but didn't jump)? No 8. If YES, was this within the past 3 months? Response not required due to responses to other questions. Toxic Exposure Screening: The /caregiver was asked if they believe the experienced any toxic exposure(s), such as Airborne Hazards and Open Burn Pit, [place] War related exposures, Agent [place], Radiation, contaminated water at [place] or other such exposures, while serving in the Armed Forces. has no concerns about toxic exposure(s) while serving in the Armed Forces. The /caregiver was informed that we will continue to ask this screening question every 5 years. They can contact their provider/healthcare team if they have concerns about exposures and would like to be screened sooner. Printed information was offered and provided if desired. Depression Screening: Perform PHQ-2 A PHQ-2 screen was performed. The score was 0 which is a negative screen for depression. Over the past two weeks, how often have you been bothered by the following problems? 1. Little interest or pleasure in doing things Not at all 2. Feeling down, depressed, or hopeless Not at all Falls & Incontinence Screen: Falls Screen: 4. No falls within the past year. Incontinence Screen No incontinence. PTSD Screening: PC-PTSD-5 A PTSD screening test (PC-PTSD-5) was negative (score=0). IN THE PAST MONTH, have you ever had any experience that was so frightening, horrible or traumatic. For example: A serious accident or fire a physical or sexual assault or abuse An earthquake or flood A war Seeing someone be killed or seriously injured Having a loved one through homicide or suicide 1. Have you ever experienced this kind of event? NO 2. Had nightmares about the event(s) or thought about the event(s) when you did not want to? Response not required due to responses to other questions. 3. Tried hard not to think about the event(s) or went out of your way to avoid situations that reminded you of the event(s)? Response not required due to responses to other questions. 4. Been constantly on guard, watchful, or easily startled? Response not required due to responses to other questions. 5. Crosby numb or detached from people, activities, or your surroundings? Response not required due to responses to other questions. 6. Crosby guilty or unable to stop blaming yourself or others for the event(s) or any problems the event(s) may have caused? Response not required due to responses to other questions. Tobacco Use Screening: The patient is a former tobacco user. The patient quit fifteen or more years ago. Influenza Immunization: The patient has received the seasonal influenza vaccine for the current season at another location. Documented: INFLUENZA, UNSPECIFIED FORMULATION Historical Date Administered: 2023 Exact date unknown Outside Location: [facility] Information Source: FROM PATIENT'S RECALL Alcohol Use Screen (AUDIT-C): Alcohol Screen: SCREEN FOR ALCOHOL (AUDIT-C) An alcohol screening test (AUDIT-C) was negative (score=0). 1. How often did you have a drink containing alcohol in the past year? Consider a drink to be a 12 ounce can or bottle of regular beer, 8 ounces of malt liquor, a 5 ounce glass of table wine, or a 1.5 ounce shot of liquor (like scotch, gin, or vodka). Never 2. How many drinks containing alcohol did you have on a typical day when you were drinking in the past year? Response not required due to responses to other questions. 3. How often did you have six or more drinks on one occasion in the past year? Response not required due to responses to other questions. COVID-19 Immunization: Vaccine given previously - no written/electronic documentation available Comment: states having vaccinated at [facility] The patient was instructed to bring a copy of their COVID-19 vaccine information to their next appointment so that this can be accurately recorded in their [facility] medical record. Herpes Zoster (Shingles) Vaccine: Prior Herpes Zoster vaccination The patient has been vaccinated in the past but written documentation of vaccination is not available today. Patient instructed to obtain a written record of the prior vaccine and bring it to the next appointment. Sexual Orientation: The patient thinks of their sexual orientation as: Straight or Heterosexual Eye Care At-Risk Screen : Patient identified to be at risk for the following eye condition(s): GLAUCOMA: Glaucoma Risk Factors Information: Encounter Diagnosis: 06/27/2022@10:00 H40.9 (ICD-10-CM) Unspecified Glaucoma rank: SECONDARY Prov. Narr. - Unspecified Glaucoma Action: No Referral Ordered: Eye exam completed elsewhere by an Senior Billing Consultant or Rough Planer Tender Exam Information: Date: June 25, 2023 Findings/Comment Cataracts- Dr. Clyde Fermin MD ophtalmologist Location: [facility] Patients states having cataracts surgery scheduled at [facility]. /geri GUZMAN LPN LPN Signed: 06/26/2023 10:13 06/26/2023 ADDENDUM STATUS: COMPLETED HTN Assess for Elevated BP>=140/90: The patient was counseled on the importance of regular exercise and/or physical activity in the control of blood pressure. /geri GUZMAN LPN LPN Signed: 06/26/2023 10:14 06/26/2023 ADDENDUM STATUS: COMPLETED Tdap Immunization: Td/Tdap given previously - written records available The patient has previously received the Tetanus, Diphtheria, Pertussis vaccine (Tdap). Documented: TDAP Historical Date Administered: 2022 Exact date unknown Outside Location: Outside Healthcare Provider Information Source: FROM PATIENT'S WRITTEN RECORD /macho/ JEOVANNY GUZMAN LPN LPN Signed: 06/26/2023 10:17 JEOVANNY GUZMAN
--- OUTSIDE RECORDS SUMMARY | 2024-05-18 10:08 | XMS_ITS | Encounter Summary ---
Author Name Department of [facility] ([place]) Organization Department of [facility] ([place]) Address [address] [place] [id number] Care Team Providers Care African Studies Professor Name Role Phone CHICA SEGOVIA Primary Care [...] SUPPLEMEN TAL MEDEX 2 Jun 02, 2019 [id number] [place] PATIENT MEDICARE (WNR) MEDICARE (M) PART B Oct 31, 2009 PART B [id number] [place] PATIENT MEDICARE (WNR) MEDICARE (M) PART A Oct 31, 2009 PART A [id number] [place] PATIENT [facility] ([facility]) MEDICARE ADVANTAGE [facility] ([facility]) Jun 02, 2015 [id number] [place] PATIENT Selected Encounter This section includes the information on record at [place] for the Encounter. Date/Time Encounter Type Encounter Description Reason Provider Source Jun 26, 2023 10:00 AM OFFICE O/P EST MOD 30 MIN PRIMARY CARE/MEDICINE ICD-10-CM I10 Essential (primary) hypertension ROXY SEGOVIA IHE Encounter Template Text not used by [place] Assessments - Encounter Diagnoses This section includes the primary and secondary diagnoses documented for the Encounter. Date/Time Primary/Secondary Diagnosis Diagnosis Name Provider Source Jul 09, 2023 01:51 PM PRIMARY Essential (primary) hypertension CHICA SEGOVIA [place] Jul 09, 2023 01:51 PM SECONDARY Age-related nuclear cataract, bilateral CHICA SEGOVIA [place] Jul 09, 2023 01:51 PM SECONDARY Cervicalgia CHICA SEGOVIA [place] Jul 09, 2023 01:51 PM SECONDARY Chronic kidney disease, stage 2 (mild) CHICA SEGOVIA [place] Jul 09, 2023 01:51 PM SECONDARY Personal history of other diseases of the circulatory system CHICA SEGOVIA [place] Jul 09, 2023 01:51 PM SECONDARY Raynaud's syndrome without gangrene CHICA SEGOVIA [place] Jul 09, 2023 01:51 PM SECONDARY Unspecified glaucoma CHICA SEGOVIA [place] Jul 09, 2023 01:51 PM SECONDARY Unspecified sensorineural hearing loss CHICA SEGOVIA [place] Vital Signs: All taken on the encounter date This section contains inpatient and outpatient Vital Signs collected on the date of the Encounter. Date/Time Temperature Pulse Blood Pressure Respiratory Rate SP02 Pain Height Weight Body Mass Index Source Jun 26, 2023 09:56 AM 98 55 144/77 20 99 66 172 28 [facility] Social History: Smoking Status (Most current) and Tobacco Use (All prior to encounter date) This section includes the most current, and the historical, smoking and tobacco- related health factors from the [place] facility where the Encounter took place. Current Smoking Status This section includes the most current smoking, or tobacco-related health factor, from the [place] facility where the Encounter took place. Date/Time Current Smoking Status Comment Navneet ity Jun 26, 2023 10:00 AM VA-TOBACCO FORMER USER [place] Tobacco Use History This section includes a history of the smoking, or tobacco-related health factors, that were collected on or before the date of the Encounter. The data comes from the [place] facility where the Encounter took place. Date/Time Smoking Status/Tobacco Use Comment F acility Jun 26, 2023 10:00 AM [place]-TOBACCO QUIT 15 YRS OR MORE [place] Apr 24, 2021 01:00 PM DE-TOBACCO FORMER USER [place] Apr 24, 2021 01:00 PM VA-TOBACCO QUIT 15 YRS OR MORE [place] May 10, 2020 10:30 AM VA-TOBACCO FORMER USER [place] May 10, 2020 10:30 AM VA-TOBACCO QUIT 15 YRS OR MORE [place] Feb 01, 2016 01:25 PM QUIT TOBACCO USE > 7 YEARS AGO quit ~ 15 yrs ago [place] Encounter Notes: All associated encounter notes This section contains the clinical notes associated to the Encounter. Date/Time Encounter Note(s) Provider Source Jun 26, 2023 09:56 AM PRIMARY CARE NURSE PRACTITIONER OUTPATIENT NOTE: LOCAL TITLE: NURSE PRACTITIONER OUTPATIENT NOTE STANDARD TITLE: PRIMARY CARE NURSE PRACTITIONER OUTPATIENT NOTE DATE OF NOTE: JUN 26, 2023@09:56 ENTRY DATE: JUN 26, 2023@09:56:12 AUTHOR: CHICA SEGOVIA EXP COSIGNER: URGENCY: STATUS: COMPLETED PRIMARY CARE VISIT [place], is a 77 y/o WHITE MALE who presents today at the [place] [facility]. TYPE OF VISIT: Face to face accompanied by HPI: cataracts, glaucoma, astigmatism OU - followed by Ophth, just saw yesterday. To have cataracts removed soon. Wears glasses. AGUA CALIENTE b/l - wears hearing aids hx smoker - 1ppd x 20 years, quit > 30 years ago. CKD stage 3 - followed by nephro. Hx AAA repair - gets annual screening. No longer needs Plavix per vascular surgeon. Takes daily ASA. HTN - stable on Rx x 3 intermittent neck pain - takes Tylenol PRN Reynaud's - reports hands and feet always cold, does not experience color changes. Recent labs reviewed, patient brought in copy of labs his PCP has ordered. 06/20/23 BUN 21 creat 1.57 GFR 45 03/03/23 lipid panel wnl CBC wnl All medications were reconciled during this visit. HEALTHCARE PROVIDERS: community PCP neuro nephro vascular surgery ophthamology HISTORY: PERIOD OF SERVICE - [employer] FROM Jul TO May COMBAT SERVICE INDICATED: No VITAL SIGNS: Blood Pressure: 144/77 (06/26/2023 09:56) Pain: 0 (05/11/2019 10:29) Patient Height: 66 in [167.6 cm] (06/26/2023 09:56) Patient Weight: 172 lb [78.02 kg] (06/26/2023 09:56) Pulse: 55 (06/26/2023 09:56) Respiration: 20 (06/26/2023 09:56) Temperature: 98 F [36.7 C] (06/26/2023 09:56) ASSISTIVE DEVICES: REVIEW OF SYSTEMS: CONSTITUTIONAL: No fevers, chills, unexpected weight changes. EENT: No changes in hearing, wears hearing aids. Vision is poor, wears glasses and has cararacts OU. Denies sneezing, congestion, rhinorrhea, anosmia, sore throat or ageusia. CARDIOVASCULAR: No chest pain, palpitations or peripheral edema. RESPIRATORY: No SOB, cough, sputum, wheeze. GASTROINTESTINAL: Denies abdominal pain, N/V/D/C. No melena or hematochezia. GENITOURINARY: No dysuria, hematuria, urinary frequency or urgency. No nocturia. MUSCULOSKELETAL: Chronic neck pain, no radiculopathy. SKIN: Denies rashes, open areas or concerns PSYCHIATRIC: No new anxiety or depression. No sleep disturbance. NEUROLOGIC: No headaches, dizziness, numbness/tingling in the extremities or unilateral weakness. PHYSICAL EXAMINATION: General: Well-appearing in no obvious distress. Mental Status: Alert and oriented x4. Head: Normocephalic, atraumatic. Eyes: PERRL. EOMI. Anicteric sclerae. + cataracts OU ENT: TM and ear canals normal bilaterally. Moist oral mucosa. Posterior pharynx unremarkable. Good dentition. Neck: Supple. No lymphadenopathy. No bruit. Thyroid unremarkable. Lungs: CTAB. Normal chest excursion. Eupneic respirations. CV: Heart tones S1, S2. RRR. No M/G/R. No peripheral edema. GI: Abdomen is soft and nontender. No palpable mass or organomegaly. : No CVA tenderness. Ext: No cyanosis or clubbing. No gross deformities. MS: Diminished ROM cervical spine, minimal discomfort with AROM. No crepitus. Neuro: CN II through XII grossly intact. Normal speech. Normal gait. Integument: Skin warm and dry. No rashes or lesions on visible areas. Psych: Normal mood and affect. Normal judgment. Cooperative with exam, follows commands. ALLERGIES: Patient has answered [facility] - see end of note PREVENTIVE MEDICINE GOALS Tobacco Pack Year History DUE NOW Advance Directive Screen MH AD Dec 25 Suicide Screen Apr 24 Toxic Exposure Screening DUE NOW Depression Screening Apr 24 Falls & Incontinence Screen Jun 27 PTSD Screening May 11 Tobacco Use Screening Jun 27 Influenza Immunization DUE NOW Medication Reconciliation DUE NOW Alcohol Use Screen (AUDIT-C) Jun 27 COVID-19 Immunization DUE NOW Tdap Immunization DUE NOW HTN Assess for Elevated BP>=140/90 DUE NOW Herpes Zoster (Shingles) Vaccine DUE NOW Sexual Orientation DUE NOW Eye Care At-Risk Screen DUE NOW No longer requires colonoscopy ASSESSMENT/PLAN: 1. HTN - stable, continue Rx 2. CKD stage 3 - followed by trung nieves, GFR 45. Monitor labs, risk vs benefit of nephrotoxic medications. 3. Reynaud's phenomenon - tolerable with intervertion 4. AGUA CALIENTE bilaterally - wears hearing aids 5. cataracts OU - saw Ophjuvencio yesterday, to have surgically removed soon 6. glaucoma - followed by trung Morris. Continue gtts. 7. AAA - with hx repair. On ASA. 8. cervicalgia - continue PRN Tylenol. FOLLOW UP: Return to clinic as noted below and/or sooner PRN UPCOMING APPOINTMENTS: 06/26/2023 10:00 CWM/SO/PACT 7 No barriers noted; patient understands and agrees to current treatment plan. If patient has any questions, concerns or changes in current health status he/she will call or come in to the VA. HM: Homelessness/Food Insecurity Screen: In the past 2 months, have you been living in stable housing that you own, rent, or stay in as part of a household? Yes - Living in stable housing. Are you worried or concerned that in the next 2 months you may NOT have stable housing that you own, rent, or stay in as part of a household? No - Not worried about housing near future The reports the following: Within the past 12 months, you worried whether your food would run out before you got money to buy more. Never true Within the past 12 months, the food you bought just didn't last and you didn't have money to get more. Never true HIV Screening: Patient has been offered HIV testing and has declined. I have explained that HIV testing is recommended for all adults, even if all risk factors are absent. The patient was educated on the risk of delayed screening. Medication Reconciliation: Outpatient: Has the patient been taking medications as documented in the EMLR? No: Discrepencies were identified. See below. Essential Medication List for Review used to complete this medication reconciliation. INCLUDED IN THIS LIST: Alphabetical list of active outpatient prescriptions dispensed from this VA (local) and dispensed from another VA or DoD facility (remote) as well as inpatient orders (local, pending and active), local clinic medications, locally documented non-VA medications, and local prescriptions that have or been discontinued in the past 90 days. - Discrepancies were identified, addressed, and discussed with the patient/caregiver at this encounter. Discrepancies: no longer taking Plavix - All changes in medications, including all non-VA/Herbal/OTC medications were entered into CPRS. - If there were any medications the patient should no longer take, they were discontinued. - The patient/caregiver was instructed to update this list, discard old lists, and take this list to the next appointment, whether with a VA or non-VA provider. COVID-19 Immunization: Vaccine given previously - no written/electronic documentation available Comment: states he received at [facility] 03/02/23 The patient was instructed to bring a [...] and bring it to the next appointment. Preferred Language: What is your, or your caregiver's preferred language for healthcare? Preferred Language: Cymro Tobacco Use Screening: The patient is a former tobacco user. The patient quit fifteen or more years ago. Influenza Immunization: The patient has received the seasonal influenza vaccine for the current season at another location. Documented: INFLUENZA, UNSPECIFIED FORMULATION Historical Date Administered: Mar 02, 2023 Outside Location: Outside Healthcare Provider Information Source: FROM PATIENT'S RECALL Comment: [facility] Td / Tdap Immunization: The patient may have been vaccinated in the past but written [...] Ordered: Eye exam completed elsewhere by an It Assistant or Retail Link Analyst Exam Information: Date: June 25, 2023 Findings/Comment cataracts OU, glaucoma OU /es/ MILTON DELGADO CERTIFIED NURSE PRACTITIONER Signed: 06/27/2023 13:23 CHICA SEGOVIAFIELD
--- OUTSIDE RECORDS SUMMARY | 2024-05-18 10:09 | XMS_ITS | Encounter Summary ---
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[place]) Organization [facility] of [facility] ([place]) Address [address] [place] [address] Care Team Providers Care Promotions Specialist Name Role Phone CHICA SEGOVIA Primary Care [...] SUPPLEMEN TAL MEDEX 2 Jun 02, 2019 [id number] [place] PATIENT MEDICARE (WNR) MEDICARE (M) PART B Oct 31, 2009 PART B [id number] [place] PATIENT MEDICARE (WNR) MEDICARE (M) PART A Oct 31, 2009 PART A [id number] [place] PATIENT [facility] (WNR) MEDICARE ADVANTAGE [facility] (R) Jun 02, 2015 [id number] [place] PATIENT Selected Encounter This section includes the information on record at ID for the Encounter. Date/Time Encounter Type Encounter Description Reason Pro vider Source Jun 25, 2023 12:00 AM Outpatient Encounter EVENT (HISTORICAL) IHE Encounter Template Text not used by ID Plan of Treatment: Future Appointments (+ 6 months) and Future Tests (+/- 45 days) The Plan of Treatment section includes future care activities for the patient from all ID treatmentfacilities. This section includes future appointments and future orders which are active, pending or scheduled. Future Appointments This section includes appointments that were scheduled to occur 6 months from the date of the Encounter, up to a maximum of 20 appointments. The data comes from all ID treatment facilities. Appointment Date/Time Appointment Type Appointme nt Facility Name Jun 26, 2023 10:00 AM AMBULATORY - MEDICINE [facility] Social History: Smoking Status (Most current) and Tobacco Use (All prior to encounter date) This section includes the most current, and the historical, smoking and tobacco- related health factors from the ID facility where the Encounter took place. Current Smoking Status This section includes the most current smoking, or tobacco-related health factor, from the ID facility where the Encounter took place. Date/Time Current Smoking Status Comment [facility] eva Jun 27, 2022 09:48 AM VA-TOBACCO FORMER USER [facility] Tobacco Use History This section includes a history of the smoking, or tobacco-related health factors, that were collected on or before the date of the Encounter. The data comes from the ID facility where the Encounter took place. Date/Time Smoking Status/Tobac co Use Comment Facility Jun 27, 2022 09:48 AM ID-TOBACCO QUIT 15 YRS OR MORE [facility] Jul 24, 2017 06:17 PM QUIT TOBACCO USE > 7 YEARS AGO Quit 20 years ago [facility]
--- OUTSIDE RECORDS SUMMARY | 2024-05-18 10:09 | XMS_ITS | Encounter Summary ---
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[place]) Organization [facility] ([place]) Address [address] [place] [address] Care Team Providers Care Assistant Manager Retail Name Role Phone CHICA SEGOVIA Primary Care [...] SUPPLEMEN TAL MEDEX 2 Jun 02, 2019 [id number] [place] PATIENT MEDICARE (WNR) MEDICARE (M) PART B Oct 31, 2009 PART B [id number] [place] PATIENT MEDICARE (WNR) MEDICARE (M) PART A Oct 31, 2009 PART A [id number] [place] PATIENT [facility] (WNR) MEDICARE ADVANTAGE [facility] (R) Jun 02, 2015 [id number] [place] PATIENT Selected Encounter This section includes the information on record at [place] for the Encounter. Date/Time Encounter Type Encounter Description Reason Pro vider Source Jun 25, 2023 12:00 AM Outpatient Encounter EVENT (HISTORICAL) IHE Encounter Template Text not used by [place] Plan of Treatment: Future Appointments (+ 6 months) and Future Tests (+/- 45 days) The Plan of Treatment section includes future care activities for the patient from all [place] treatmentfacilities. This section includes future appointments and future orders which are active, pending or scheduled. Future Appointments This section includes appointments that were scheduled to occur 6 months from the date of the Encounter, up to a maximum of 20 appointments. The data comes from all [place] treatment facilities. Appointment Date/Time Appointment Type Appointme nt Facility Name Jun 26, 2023 10:00 AM AMBULATORY - MEDICINE [facility] Social History: Smoking Status (Most current) and Tobacco Use (All prior to encounter date) This section includes the most current, and the historical, smoking and tobacco- related health factors from the [place] facility where the Encounter took place. Current Smoking Status This section includes the most current smoking, or tobacco-related health factor, from the [place] facility where the Encounter took place. Date/Time Current Smoking Status Comment [facility] eva Jun 27, 2022 09:48 AM VA-TOBACCO FORMER USER [facility] Tobacco Use History This section includes a history of the smoking, or tobacco-related health factors, that were collected on or before the date of the Encounter. The data comes from the [place] facility where the Encounter took place. Date/Time Smoking Status/Tobac co Use Comment Facility Jun 27, 2022 09:48 AM CO-TOBACCO QUIT 15 YRS OR MORE [facility] Jul 24, 2017 06:17 PM QUIT TOBACCO USE > 7 YEARS AGO Quit 20 years ago [facility]
--- OUTSIDE RECORDS SUMMARY | 2024-05-18 10:09 | XMS_ITS | Encounter Summary ---
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[place]) Organization [facility] Address [address] [place] [id number] Care Team Providers Care Alcoholism Worker Name Role Phone CHICA SEGOVIA Primary Care [...] Willis's Name Patient's Relationship to Policy [facility] Jun 02, 2019 [id number] [place] PATIENT MEDICARE ([facility]) MEDICARE (M) PART B Oct 31, 2009 PART B [id number] [place] PATIENT MEDICARE (WNR) MEDICARE (M) PART A Oct 31, 2009 PART A [id number] [place] PATIENT [facility] ([facility]) MEDICARE ADVANTAGE [facility] ([facility]) Jun 02, 2015 [id number] [place] PATIENT Selected Encounter This section includes the information on record at [place] for the Encounter. Date/Time Encounter Type Encounter Description Reason Pro vider Source Jun 02, 2023 12:00 AM Outpatient Encounter EVENT (HISTORICAL) IHE Encounter Template Text not used by [place] Plan of Treatment: Future Appointments (+ 6 months) and Future Tests (+/- 45 days) The Plan of Treatment section includes future care activities for the patient from all [place] treatmentfacilities. This section includes future appointments and future orders which are active, pending or scheduled. Future Appointments This section includes appointments that were scheduled to occur 6 months from the date of the Encounter, up to a maximum of 20 appointments. The data comes from all [place] treatment facilities. Appointment Date/Time Appointment Type Appointme nt Facility Name Jun 26, 2023 10:00 AM [facility] Immunizations: All administered on the encounter date This section contains immunizations associated to the Encounter. Immunization Series Date Issued Reaction Comments INFLUENZA, UNSPECIFIED FORMULATION Jun 02, 2023
== END 2024-05-18 10:33 | disposition home or self-care (01) ==
PROVIDERS: PCP Internal Medicine; Visit Provider Surgery Vascular Surgery
DX: I71.40 Abdominal aortic aneurysm, without rupture, unspecified (principal); I65.23 Occlusion and stenosis of bilateral carotid arteries
CPT/HCPCS: 99214; G2211

== ENCOUNTER → 2024-05-18 10:03 | Outpatient (BNVA) | payer MEDICARE, SELFPAY | PROVIDERS: PCP Internal Medicine; Visit Provider Surgery Vascular Surgery | DX: I71.40 Abdominal aortic aneurysm, without rupture, unspecified (principal); I65.23 Occlusion and stenosis of bilateral carotid arteries | CPT/HCPCS: 99212 ==

== ENCOUNTER 2025-05-04 11:16 | Outpatient (REF) | payer MEDICARE, SELFPAY ==
--- OUTSIDE RECORDS SUMMARY | 2025-03-15 09:00 | XMS_ITS | Encounter Summary ---
Author Organization [facility] Address [address] [place] [address] Care Team Providers Care Dumper Operator Name Role Phone Gabriel Gudino MD Primary Care Provider [phone] Reason for Visit * Reason Comments Follow-up 2 mo f/u med review Encounter Details Date Type Department Care Team (Late st Contact Info) Description 03/15/2025 10:00 AM EDT Office Visit Adult Medicine [facility] [address], [place] [phone] Porsche Sandra NP [address], [place] Dysphagia, unspecified type (Primary Dx); Primary hypertension; Stage 3 chronic kidney disease, unspecified whether stage 3a or 3b CKD (CMS/HCC V24, CMS/HCC V28); Prediabetes; Colon cancer screening Social History Tobacco Use Types Packs/Day Years Used Date Smoking Tobacco: Former Cigarettes 0 Q uit: 06/30/2008 Smokeless Tobacco: Never Alcohol Use Standard Drinks/Week Comments Yes 6.7 (1 standard drink = 0.6 oz p ure alcohol) Sex and Gender Information Value Date Recorded Sex Assigned at Male 12/08/2024 4:09 PM EDT Legal Sex Male 2:28 PM EST Gender Identity Male 12/08/2024 4:09 PM EDT Sexual Orientation Straight 12/08/2024 4: 09 PM EDT documented as of this encounter Last Filed Vital Signs Vital Sign Reading Time Taken Comments Blood Pressure 134/70 03/15/2025 10:30 AM EDT Pulse 53 03/15/2025 10:01 AM EDT Temperature 36.1 C (96.9 F) 03/15/2025 10:01 AM EDT Respiratory Rate - - Oxygen Saturation - - Inhaled Oxygen Concentration - - Weight 76.2 kg (168 lb) 03/15/2025 10:01 AM EDT Height 165.1 cm (5' 5 ) 03/15/2025 10:01 AM EDT Body Mass Index 27.96 03/15/2025 10:01 AM EDT documented in this encounter Progress Notes * Porsche Sandra NP - 03/15/2025 10:00 AM EDT Images from the original note were not included. Patient Education High Blood Pressure: Care Instructions Overview It's normal for blood pressure to go up and down throughout the day. But if it stays up, you have high blood pressure. Another name for high blood pressure is hypertension. For diagnosis, the top number may be 130 to 140 or higher. The bottom number may be 80 to 90 or higher. Despite what a lot of people think, high blood pressure usually doesn't cause headaches or make youfeel dizzy or lightheaded. It usually has no symptoms. But it does increase your risk of stroke, heart attack, and other problems. You and your doctor will talk about your risks of these problems based on your blood pressure. Your doctor will give you a goal for your blood pressure. Your goal will be based on your health and your age. Lifestyle changes, such as eating healthy and being active, are always important to help lower blood pressure. You might also take medicine to reach your blood pressure goal. Follow-up care is a baez part of your treatment and safety. Be sure to make and go to all appointments, and call your doctor if you are having problems. It's also a good idea to know your test resultsand keep a list of the medicines you take. How can you care for yourself at home? Medical treatment If you stop taking your medicine, your blood pressure will go back up. You may take one or more types of medicine to lower your blood pressure. Be safe with medicines. Take your medicine exactly as prescribed. Call your doctor if you think you are having a problem with your medicine. See your doctor regularly. You may need to see the doctor more often at first or until your blood pressure comes down. If you are taking blood pressure medicine, talk to your doctor before you take decongestants or anti-inflammatory medicine, such as ibuprofen. Some of these medicines can raise blood pressure. Learn how to check your blood pressure at home. Talk to your doctor before you start taking aspirin every day. Aspirin can help certain people lower their risk of a heart attack or stroke. But taking aspirin isn't right for everyone, because it can cause serious bleeding. Lifestyle changes Stay at a weight that's healthy for you. This is especially important if you put on weight around the waist. Losing even 10 pounds can help you lower your blood pressure. If your doctor recommends it, get more exercise. Walking is a good choice. Bit by bit, increase theamount you walk every day. Try for at least 30 minutes on most days of the week. Avoid or limit alcohol. Talk to your doctor about whether you can drink any alcohol. Try to limit how much sodium you eat to less than 2,300 milligrams (mg) a day. Your doctor may ask you to try to eat less than 1,500 mg a day. Eat plenty of fruits (such as bananas and oranges), vegetables, legumes, whole grains, and low-fat dairy products. Lower the amount of saturated fat in your diet. Saturated fat is found in animal products such as milk, cheese, and meat. Limiting these foods may help you lose weight and also lower your risk for heart disease. Do not smoke or vape. Smoking or vaping increases your risk for heart attack and stroke. If you need help quitting, talk to your doctor about quit programs and medicines. These can increase your chances of quitting for good. When should you call for help? Call 911 anytime you think you may need emergency care. This may mean having symptoms that suggest your blood pressure is causing a serious heart or blood vessel problem. Your blood pressure may be 180/120 or higher. For example, call 911 if: You have symptoms of a heart attack. These may include: Chest pain or pressure, or a strange feeling in the chest. Sweating. Shortness of breath. Nausea or vomiting. Pain, pressure, or a strange feeling in the back, neck, jaw, or upper belly or in one or both shoulders or arms. Lightheadedness or sudden weakness. A fast or irregular heartbeat. NOTE: After calling 911, the handle lathe operator may tell you to chew 1 adult-strength or 2 to 4 low-dose aspirin. Wait for an ambulance. Do not try to drive yourself. You have symptoms of a stroke. These may include: Sudden numbness, tingling, weakness, or loss of movement in your face, arm, or leg, especially on only one side of your body. Sudden vision changes. Sudden trouble speaking. Sudden confusion or trouble understanding simple statements. Sudden problems with walking or balance. A sudden, severe headache that is different from past headaches. You have severe back or belly pain. Do not wait until your blood pressure comes down on its own. Get help right away. Call your doctor now or seek immediate care if: Your blood pressure is much higher than normal (such as 180/120 or higher), but you don't have symptoms. You think high blood pressure is causing symptoms, such as: Severe headache. Blurry vision. Watch closely for changes in your health, and be sure to contact your doctor if: Your blood pressure measures higher than your doctor recommends at least 2 times. That means the top number is higher or the bottom number is higher, or both. You think you may be having side effects from your blood pressure medicine. Where can you learn more? Scan the QR code or Go to https://www.[employer]/nabilchart Enter X567 in the search box to learn more about High Blood Pressure: Care Instructions. Current as of: December 31, 2023 Content Version: 14.5 ?? 0816-5432 [employer]. Care instructions adapted under license by your healthcare professional. If you have questions about a medical condition or this instruction, always ask your healthcare professional. [employer], disclaims any warranty or liability for your use of this information. Patient Education DASH Diet: Care Instructions Your Care Instructions The DASH diet is an eating plan that can help lower your blood pressure. DASH stands for Dietary Approaches to Stop Hypertension. Hypertension is high blood pressure. The DASH diet focuses on eating foods that are high in calcium, potassium, and magnesium. These nutrients can lower blood pressure. The foods that are highest in these nutrients are fruits, vegetables, low-fat dairy products, nuts, seeds, and legumes. But taking calcium, potassium, and magnesium supplements instead of eating foods that are high in those nutrients does not have the same effect. The DASH diet also includes whole grains, fish, and poultry. The DASH diet is one of several lifestyle changes your doctor may recommend to lower your high blood pressure. Your doctor may also want you to decrease the amount of sodium in your diet. Lowering sodium while following the DASH diet can lower blood pressure even further than just the DASH diet alone. Follow-up care is a baez part of your treatment and safety. Be sure to make and go to all appointments, and call your doctor if you are having problems. It's also a good idea to know your test resultsand keep a list of the medicines you take. How can you care for yourself at home? Following the DASH diet Eat 4 to 5 servings of fruit each day. A serving is 1 medium-sized piece of fruit, 1/2 cup raw or canned fruit, 1/4 cup dried fruit, or 4 ounces (1/2 cup) of fruit juice. Choose fruit more often thanfruit juice. Eat 4 to 5 servings of vegetables each day. A serving is 1 cup of lettuce or raw leafy vegetables, 1/2 cup of chopped or cooked vegetables, or 4 ounces (1/2 cup) of vegetable juice. Choose vegetablesmore often than vegetable juice. Get 2 to 3 servings of low-fat and fat-free dairy each day. A serving is 8 ounces of milk, 1 cup ofyogurt, or 1?? ounces of cheese. Eat 6 to 8 servings of grains each day. A serving is 1 slice of bread, 1 ounce of dry cereal, or 1/2 cup of cooked rice, pasta, or cooked cereal. Try to choose whole-grain products as much as possible. Limit lean meat, poultry, and fish to 6 ounces or less each day. One egg counts as 1 ounce. Eat 4 to 5 servings of nuts, seeds, and legumes (cooked dried beans, lentils, and split peas) each week. A serving is 1/3 cup of nuts, 2 tablespoons of seeds, 2 tablespoons of peanut butter, or 1/2 cup of cooked beans or peas. Limit fats and oils to 2 to 3 servings each day. A serving is 1 teaspoon of vegetable oil or 2 tablespoons of salad dressing. Limit sweets and added sugars to 5 servings or less a week. A serving is 1 tablespoon jelly or jam,1/2 cup sorbet, or 1 cup of lemonade. Eat less than 2,300 milligrams (mg) of sodium a day. If you limit your sodium to 1,500 mg a day, you can lower your blood pressure even more. Be aware that all of these are the suggested number of servings for people who eat 1,800 to 2,000 calories a day. Your recommended number of servings may be different if you need more or fewer calories. Tips for success Start small. Make small changes, and stick with them. Once those changes become habit, add a few more changes. Try some of the following: Make it a goal to eat a fruit or vegetable at every meal and at snacks. This will make it easy to get the recommended amount of fruits and vegetables each day. Try yogurt topped with fruit and nuts for a snack or healthy dessert. Add lettuce, tomato, cucumber, and onion to sandwiches. Have a variety of cut-up vegetables with a low-fat dip as an appetizer instead of chips and dip. Sprinkle sunflower seeds or chopped almonds over salads. Or try adding chopped walnuts or almonds to cooked vegetables. Try some vegetarian meals using beans and peas. Add garbanzo or kidney beans to salads. Make burritos and tacos with mashed forbes beans or black beans. Where can you learn more? Scan the QR code or Go to https://www.[employer].net/nabilchart Enter H967 in the search box to learn more about DASH Diet: Care Instructions. Current as of: March 08, 2024 Content Version: 14.5 ?? 8965-7070 [employer]. Care instructions adapted under license by your healthcare professional. If you have questions about a medical condition or this instruction, always ask your healthcare professional. [employer], disclaims any warranty or liability for your use of this information. * Muna Martinez MA - 03/15/2025 10:00 AM EDTAddended by: MUNA MARTINEZ on: 04/29/2025 10:10 AM Modules accepted: Orders * Porsche Sandra NP - 03/15/2025 10:00 AM EDT PATIENT'S PCP: Gabriel Gudino MD LAST VISIT IN THIS DEPARTMENT: 12/08/2024 Henry Webster is a 79 y.o. (: 1945) male who presents today for: Chief Complaint Patient presents with Follow-up 2 mo f/u med review SUBJECTIVE History of Present Illness The patient is an 79-year-old male who presents for evaluation of dysphagia, hypertension, and chronic kidney disease stage 3. He has been experiencing difficulty swallowing, which has led to a few instances of speech loss. Healso reports occasional choking and coughing during meals. These symptoms prompted his to seekmedical attention. A barium swallow test was ordered by Dr. Gudino, but it did not reveal any abnormalities. Since the test, he has had one episode of difficulty swallowing, which he attributes to consumi ng ice water at a restaurant. He reports no current issues with swallowing, chest pain, or shortness of breath. He has a long-standing history of hypertension, which he manages with amlodipine 10 mg, lisinopril 5 mg, and carvedilol 6.25 mg. Today he reported no chest pain on exertion, no dyspnea on exertion, no swelling of ankles, no palpitation, sweating, dizziness, abdominal pain or tearing back pain. He also denied TIAs, headache, vision changes, or sensory and motor deficit. He has stage 3 chronic kidney disease. He maintains good hydration and avoids nephrotoxic drugs such as ibuprofen, Aleve, Advil, Motrin, and naproxen. He only takes Tylenol when necessary. He reports no feelings of depression or recent falls. He undergoes eye examinations every six months due to a history of cataracts and glaucoma, with the most recent check-up being a month ago. 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 He reports no numbness in his feet but mentions that they often feel cold. PAST SURGICAL HISTORY: Cataract surgery Triple-A aneurysm repair Review Of System Review of Systems Constitutional: Negative. HENT: Positive for trouble swallowing. Respiratory: Negative. Cardiovascular: Negative. Gastrointestinal: Negative. Endocrine: Negative. Genitourinary: Negative. Musculoskeletal: Negative. Skin: Negative. Neurological: Negative. Hematological: Negative. The following portions of the patient's chart were reviewed in this encounter and updated as appropriate: OBJECTIVE Vitals: 03/15/25 1001 03/15/25 1030 BP: (!) 144/64 134/70 BP Location: Right arm Patient Position: Sitting Pulse: 53 Temp: 36.1 ??C (96.9 ??F) TempSrc: Temporal Weight: 76.2 kg (168 lb) Height: 1.651 m (65 ) BP Readings from Last 5 Encounters: 03/15/25 134/70 12/08/24 112/74 06/07/24 (!) 142/78 12/03/23 130/68 08/14/23 134/60 Body mass index is 27.96 kg/m??. BMI is greater than 25.0 (above the normal range) - see Plan Wt Readings from Last 5 Encounters: 03/15/25 76.2 kg (168 lb) 12/08/24 75.8 kg (167 lb) 06/07/24 76.7 kg (169 lb) 12/03/23 75.8 kg (167 lb) 08/14/23 78 kg (172 lb) Allergies[1] Active Medication: Current Outpatient Medications Medication Instructions allopurinoL (ZYLOPRIM) 100 mg, oral, Daily amLODIPine (NORVASC) 10 mg, oral, Daily aspirin 81 mg EC tablet 1 tablet, Daily atorvastatin (LIPITOR) 40 mg, oral, Daily carvediloL (COREG) 6.25 mg, oral, 2 times daily with meals lisinopriL (PRINIVIL,ZESTRIL) 5 mg, oral, Daily MULTIVITAMIN ORAL 1 po qd Physical Exam Vitals reviewed. Constitutional: Appearance: Normal appearance. Cardiovascular: Rate and Rhythm: Normal rate and regular rhythm. Pulses: Dorsalis pedis pulses are 1+ on the right side and 1+ on the left side. Posterior tibial pulses are 1+ on the right side and 1+ on the left side. Heart sounds: Normal heart sounds. Pulmonary: Effort: Pulmonary effort is normal. Breath sounds: Normal breath sounds. Abdominal: General: Bowel sounds are normal. Palpations: Abdomen is soft. Musculoskeletal: General: Normal range of motion. Cervical back: Normal range of motion and neck supple. Right foot: Normal range of motion. No deformity, bunion or Charcot foot. Left foot: Normal range of motion. No deformity, bunion or Charcot foot. Feet: Right foot: Skin integrity: Skin integrity normal. Toenail Condition: Right toenails are normal. Left foot: Skin integrity: Skin integrity normal. Toenail Condition: Left toenails are normal. Comments: - DIABETIC FOOT EXAM: Negative for neuropathy. - no loss of peripheral sensation with monofilament Skin: General: Skin is warm and dry. Neurological: General: No focal deficit present. Mental Status: He is alert. Mental status is at baseline. Imaging No Pertinent Imaging Laboratory: CBC: No results found for: WBC , HGB , HCT , MCV , PLT CMP: Lab Results Component Value Date NA 141 11/30/2024 K 4.7 11/30/2024 CL 107 11/30/2024 CO2 28 11/30/2024 GLUCOSE 115 (H) 11/30/2024 BUN 16 11/30/2024 CREATININE 1.30 11/30/2024 CALCIUM 9.5 11/30/2024 PROT 6.9 11/30/2024 ALBUMIN 3.6 11/30/2024 BILITOT 0.7 11/30/2024 AST 16 11/30/2024 ALT 18 11/30/2024 URICACID 6.0 11/30/2024 ALKPHOS 84 11/30/2024 EGFR 56 (L) 11/30/2024 A1c/Microalbuminuria/LDL/GFR: Lab Results Component Value Date HGBA1C 5.6 11/30/2024 HGBA1C 5.5 08/12/2023 Lab Results Component Value Date LDLCALC 66 11/30/2024 CREATININE 1.30 11/30/2024 Lipids: Lab Results Component Value Date CHOL 151 11/30/2024 TRIG 150 11/30/2024 HDL 55 11/30/2024 LDLCALC 66 11/30/2024 VLDL 30 11/30/2024 NONHDLC 96 11/30/2024 CHOLHDL 2.7 11/30/2024 TSH: No results found for: TSH PSA: No results found for: PSA Lab Results Component Value Date LDLCALC 66 11/30/2024 1. Dysphagia, unspecified type 2. Primary hypertension 3. Stage 3 chronic kidney disease, unspecified whether stage 3a or 3b CKD (CMS/HCC V24, [facility] V28) 4. Prediabetes Assessment & Plan 1. Dysphagia: - Barium swallow test results were unremarkable. - Advised to eat slowly, chew food thoroughly, and avoid overfilling mouth to reduce choking risk. - Suggested using apple sauce for pill ingestion to facilitate swallowing. 2. Hypertension: - Blood pressure slightly elevated during visit but normalized to 134/70 mmHg after rechecking. - Currently on amlodipine 10 mg, lisinopril 5 mg, and carvedilol 6.25 mg. - Advised to continue current medication regimen. 3. Chronic kidney disease stage 3: - Advised to maintain adequate hydration. - Recommended avoiding nephrotoxic drugs such as ibuprofen, Aleve, Advil, Motrin, and naproxen. 4. Prediabetes - Last A1c was 5.6% - Advised patient to maintain low-carb diet. - He is encouraged activities as tolerated. 4. Health maintenance: - Due for annual FIT test; will provide stool sample for this purpose. - Blood work to be conducted prior to next visit. - Diabetic foot check completed Patient understands the plan and is in agreement with the plan. FOLLOW-UP: Follow up in about 6 months (around 09/13/2025) for follow up with care team. Porsche Sandra NP [address] [id number] I have obtained verbal consent from Henry Eleanor prior to the recording. I have advised Henry Figueroasherrellmay that he may refuse the recording and require the recording to be turned off at any time during this encounter. Today's documentation was made using voice recognition software.This note may contain grammatical errors secondary to this software. [1] No Known Allergies documented in this encounter Plan of Treatment Upcoming Encounters Date Type Department Care Team (Late st Contact Info) Description 09/13/2025 11:00 AM EDT Office Visit Adult Medicine [facility] [address], [place] [phone] Gabriel Gudino MD [address] [place] [address] Scheduled Orders Name Type Priority Associated Diagnoses Orde r Schedule Basic metabolic panel Lab Routine Dysphagia, unspecified type Primary hypertension Stage 3 chronic kidney disease, unspecified whether stage 3a or 3b CKD ([facility] V24, [facility] V28) Expected: 06/15/2025, Expires: 03/15/2026 FIT occult blood stool, immunoassay Lab Routine Dysphagia, unspecified type Primary hypertension Stage 3 chronic kidney disease, unspecified whether stage 3a or 3b CKD ([facility] V24, [facility] V28) 1 Occurrences starting 03/15/2025 until 03/15/2026 Microalbumin creatinine urine ratio Lab Routine Dysphagia, unspecified type Primary hypertension Stage 3 chronic kidney disease, unspecified whether stage 3a or 3b CKD ([facility] V24, [facility] V28) 1 Occurrences starting 03/15/2025 until 03/15/2026 documented as of this encounter Procedures Procedure Name Priority Date/Time Associated Diagnosis Comments POC FECAL OCCULT BLOOD Routine 04/29/2025 10:07 AM EST Colon cancer screening documented in this encounter Results * POC Fecal Immunochemical Testing (FIT) Screening (Medicare) (04/29/2025 10:07 AM EST) Fecal Occult Blood POC Negative Negative POC Occult Blood 1 Int QC Pass? Yes Yes Stool Rectum structure / Unknown 04/29/2025 10:07 AM EST Porsche Sandra NP POINT OF CARE TEST ENTER/MARTINE T ORDERABLES Final Result documented in this encounter Visit Diagnoses Diagnosis Dysphagia, unspecified type- Primary Primary hypertension Unspecified essential hypertension Stage 3 chronic kidney disease, unspecified whether stage 3a or 3b CKD ([facility] V24, [facility] V28) Prediabetes Other abnormal glucose Colon cancer screening Special screening for malignant neoplasms, colon documented in this encounter Discontinued Medications Medication Sig Discontinue Reason Start Date End Da te latanoprost (XALATAN) 0.005 % ophthalmic solution 1 Drop at bedtime. Therapy completed 03/15/2025 documented as of this encounter Orders Health Maintenance Count Last Ordered Date Firs t Ordered Date DIABETES FOOT EXAM 1 03/15/2025 documented in this encounter Additional Health Concerns Assessment Noted Time PHQ-9 Depression Total Score: 0 03/15/20 25 10:00 AM EDT documented as of this encounter Care Teams Dumper Operator Relationship Specialty Start Date End Date Gabriel Gudino MD [address] [place] [address] PCP - General Internal Medicine 08/31/20 documented as of this encounter
[2025-05-04 12:21] LABS: Blood Urea Nitrogen 19 mg/dL (9-16); Estimated Glomerular Filt Rate 56
--- OUTSIDE RECORDS SUMMARY | 2025-05-04 13:36 | XMS_ITS | Encounter Summary ---
Author Organization [facility] Address [address] [place] [address] Care Team Providers Care Solid Tire Tuber Machine Operator Name Role Phone Gabriel Gudino Primary Care Provider Unavailabl e Encounter Details Date Type Department Care Team (Late st Contact Info) Description 03/27/2020 Orders Only [facility] Ultrasound [address] [place] [address] Seth Marroquin MD [address], [place] [id number] Social History Tobacco Use Types Packs/Day Years Used Date Smoking Tobacco: Former Cigarettes 1 20 Smokeless Tobacco: Never Alcohol Use Standard Drinks/Week Comments Not Currently 0 (1 standard drink = 0.6 oz pur e alcohol) Sex and Gender Information Value Date Recorded Sex Assigned at Not on file Legal Sex Male 10:44 AM EST Gender Identity Not on file Sexual Orientation Not on file documented as of this encounter Plan of Treatment Not on file documented as of this encounter Visit Diagnoses Not on filedocumented in this encounter Care Teams Solid Tire Tuber Machine Operator Relationship Specialty Start Date End Date Gabriel Gudino [address] [place] [id number] PCP - General Internal Medicine 10/09/20 documented as of this encounter
--- OUTSIDE RECORDS SUMMARY | 2025-05-04 13:36 | XMS_ITS | Encounter Summary ---
Author Organization [facility] Address [address] [place] [address] Care Team Providers Care Instrument Tester Name Role Phone Gabriel Gudino Primary Care Provider Unavailabl e Encounter Details Date Type Department Care Team (Late st Contact Info) Description 07/28/2020 Orders Only [facility] Nuclear Medicine [address] [place] [phone] Guillermo Lewis MD [address] [place] [address] [phone] Social History Tobacco Use Types Packs/Day Years [...] on filedocumented in this encounter Care Teams Instrument Tester Relationship Specialty Start Date End Date Gabriel Gudino [address] [place] [address] PCP - General Internal Medicine 10/09/20 documented as of this encounter
--- OUTSIDE RECORDS SUMMARY | 2025-05-04 13:36 | XMS_ITS ---
Author Name [facility] Organization Unknown Care Team Organization Name Specialty Phone Email Start Date End Da te [facility] 01/19/2025 [facility] Gudino Primary Care 04/09/2022 01/19/2024
--- OUTSIDE RECORDS SUMMARY | 2025-05-04 13:36 | XMS_ITS | Clinical Summary ---
Author Organization [facility] [address] [place] [address] [place] [phone] Phone Care Team Providers Care Cork Grinder Name Role Phone Gabriel Gudino MD Primary Care Provider [phone] Allergies No known active allergies Medications aspirin 81 mg EC tablet Take 1 tablet (81 mg total) by mouth 1 (one) time each day. Active MULTIVITAMIN ORAL 1 po qd Active lisinopriL (PRINIVIL,ZESTRI L) 5 mg tablet Take 1 tablet (5 mg total) by mouth 1 (one) time each day. 90 tablet 1 10/27/2024 Active carvediloL (COREG) 6.25 mg tablet Take 1 tablet (6.25 mg total) by mouth 2 (two) times a day with meals. 180 tablet 1 12/13/2024 6 Active atorvastatin (LIPITOR) 40 mg tablet Take 1 tablet (40 mg total) by mouth 1 (one) time each day. 90 each 1 12/13/2024 6 Active amLODIPine (NORVASC) 10 mg tablet Take 1 tablet (10 mg total) by mouth 1 (one) time each day. 90 tablet 1 02/07/2025 6 Active allopurinoL (ZYLOPRIM) 100 mg tablet Take 1 tablet (100 mg total) by mouth 1 (one) time each day. 90 tablet 1 03/25/2025 Active Active Problems Problem Noted Date Diagnosed Date Abdominal aortic aneurysm (A AA) greater than 5.5 cm in diameter in male (CMS/HCC V24) 04/21/2024 Overview (04/21/2024): seeing Dr. Sweeney. 5.[address] Lovett in [facility] Vascular Surgery. FEVAR repair in 08/25/2019. Custom made endo graft with stented fenestration of celiac, SMA and bilateral renal arteries. Follows with vascular v 6 months, with ordered CTA. Carotid stenosis, left 04/21/2024 Overview (04/21/2024): US 2021 right 50%-69% Left <50% PVD (peripheral vascular disease) ([facility] V24) 04/21/2024 Hyperglycemia 09/03/2021 PAD (peripheral artery disease) ([facility] V24) Neuropathy 09/14/2015 Glaucoma 10/10/2014 CKD (chronic kidney disease) stage 3, GFR 30-59 ml/min ([facility] V24, [facility] V28) 01/21/2012 Benign neoplasm of colon 12/27/2011 Overview (04/21/2024): Small tubular adenomas x 2 at CN 2004. CN 2011, 4 mm rectal polyp: Tubular adenoma. Next CN in 5 yrs. Elevated prostate specific antigen (PSA) 007 Gout 05/01/2005 Hypertension 05/01/2005 Encounters Date Type Department Care Team Description 03/15/2025 10:00 AM EDT Office Visit Adult Medicine [address] [phone] Porsche Sandra NP Dysphagia, unspecified type (Primary Dx); Primary hypertension; Stage 3 chronic kidney disease, unspecified whether stage 3a or 3b CKD ([facility] V24, [facility] V28); Prediabetes; Colon cancer screening 03/15/2025 Results Follow-Up Adult [address] [phone] Porsche Sandra NP 02/22/2025 10:57 AM EDT - 02/22/2025 11:59 PM EDT Hospital Encounter [facility] Xray [address] [place] [address] Noa Bartlett, CHILD & ADOLESCENT PSYCHIATRIST Loss of voice; Choking, initial encounter Discharge Disposition: Home or Self Care from Last 3 Months Immunizations Immunization Administration Dates Next Due Influenza Quadravalent, 0.5m l (Fluzone High-dose) 65yo and older 03/05/2023,01/23/2020 Influenza trivalent, 0.5mL ( Fluad) 65yo and older 03/07/2022,02/09/2018 Influenza trivalent, 0.5mL, preservative free (Fluarix; FluLaval; Fluzone) ages 6mo and older (Afluria) 3 years and older 02/03/2019,02/07/2015,04/05/2013,02/16 Influenza, Unspecified 03/03/2023,02/13/2016, Moderna (age 6mo & older) Bi valent, COVID-19, 0.5 mL or 0.25 mL dosage 03/07/2022 Moderna SARS-CoV-2 COVID-19, mRNA, LNP-S, preservative free 08/09/2020,07/12/2020 Pneumococcal conjugate 13 va lent (Prevnar 13, PCV13) 2mo and older 10/10/2014 Pneumococcal polysaccharide 23 valent (Pneumovax 23) 2yo and older 11/15/2010 Td Tetanus diptheria (Tdvax) 7yo and older 10/10/2014 Tdap Tetanus diptheria acell ular pertussis (Boostrix; Adacel) 7yo and older 03/10/2023 Zoster Live 10/16/2011 Zoster recombinant (Shingrix ) 19yo and older 06/23/2020,04/24/2020 Surgical History Surgery Date Site/Laterality Comments TONSILLECTOMY PROCEDURE: HISTORICAL TONSILLECTOMY MULTIPLE TOOTH EXTRACTIONS PROCEDURE: EACH ADD TOOTH EXTRACTION; COMMENT: all teeth extracted COLONOSCOPY 05/25/2012 PROCEDURE: HISTORICAL COLONOSCOPY; COMMENT: 4 mm rectal polyp: Tubular adenoma. COLONOSCOPY 12/19/2003 PROCEDURE: HISTORICAL COLONOSCOPY; COMMENT: small tubular adenoma x 2. COLONOSCOPY 08/12/2017 PROCEDURE: HISTORICAL COLONOSCOPY; COMMENT: No polyps OTHER SURGICAL HISTORY 08/25/2019 PROCEDURE: HISTORICAL AAA REPAIR; COMMENT: FEVAR repair at [facility] Vascular Surgery Medical History Medical History Date Comments CKD (chronic kidney disease) stage 3, GFR 30-59 ml/min ([facility] V24, [facility] V28) 01/21/2012 DX:CKD (chronic kidney disea se) stage 3, GFR 30-59 ml/min ([facility]) Elevated prostate specific a ntigen (PSA) 12/26/2006 DX:Elevated prostate specifi c antigen (PSA) Glaucoma 10/10/2014 DX:Glaucoma Gout, unspecified 05/01/2005 DX:Gout, unspe cified Benign neoplasm of colon 12/27/2011 DX:Donnie gn neoplasm of colon; COMMENT: Small tubular adenomas x 2 at CN 2004. CN 2011, 4 mm rectal polyp: Tubular adenoma. Next CN in 5 yrs. Hypertension 05/01/2005 DX:Hypertension Neuropathy 09/14/2015 DX:Neuropathy Abdominal aortic aneurysm (A AA) greater than 5.5 cm in diameter in male ([facility] V24) DX:Abdominal aortic aneurysm (AAA) greater than 5.5 cm in diameter in male ([facility]); COMMENT: seeing Dr. Sweeney. 5.6 cm CVA (cerebral vascular accid ent) ([facility] V24, [facility] V28) DX:CVA (cerebral vascular a ccident) ([facility]) PVD (peripheral vascular dis ease) ([facility] V24) DX:PVD (peripheral vascular disease) ([facility]) Carotid stenosis, left DX:Caroti d stenosis, left Family History Relation Name Status Comments Brother 1 (Age 72) lung cance r, CABG Brother 2 Alive CABG, liver dis ease Daughter Alive healthy Father lung cancer Mother diabetes, CAD Sister 1 Alive seizures from a ge 7 Sister 2 Alive healhty Sister 3 Alive healthy Son Alive healthy Social History Tobacco Use Types Packs/Day Years [...] Orientation Straight 12/08/2024 4: 09 PM EDT Obstetrics History Last Filed Vital Signs Vital Sign Reading Time Taken Comments Blood Pressure 134/70 03/15/2025 10:30 AM EDT Pulse 53 03/15/2025 10:01 AM EDT Temperature 36.1 C (96.9 F) 03/15/2025 10:01 AM EDT Respiratory Rate 20 12/08/2024 10:38 AM EDT Oxygen Saturation - - Inhaled Oxygen Concentration - - Weight 76.2 kg (168 lb) 03/15/2025 10:01 AM EDT Height 165.1 cm (5' 5 ) 03/15/2025 10:01 AM EDT Body Mass Index 27.96 03/15/2025 10:01 AM EDT Plan of Treatment Upcoming Encounters Date Type Department Care Team (Late st Contact Info) Description 09/13/2025 11:00 AM EDT Office Visit Adult Medicine [facility] [address] [place] [address] Gabriel Gudino MD [address] [place] [address] Health Maintenance Due Date Last Done Comments Social Influencers of Health Screening 04/30/2022 Diabetes: Annual Urine Albumin-Creatinine Ratio (uACR) 11/30/2024 Medicare Annual Wellness Visit 12/02/2024 12/03/2023 Diabetes: Blood Sugar Control Test (HGBA1C) 06/02/2025 11/30/2024, 08/12/2023 COVID-19 Vaccine (9 - Moderna risk season) 2025 03/10/2025, 02/13/2024, 03/05/2023, Additional history exists Diabetes: Annual GFR (Glomerular Filtration Rate) 11/30/2025 11/30/2024, 07/11/2023, 08/26/2019 Hypertension/CHF/CAD Annual BMP Blood Test 11/30/2025 11/30/2024, 07/11/2023, 08/26/2019 Diabetes: Annual Retina Eye Exam 02/09/2026 02/09/2025 Diabetes: Annual Foot Exam 03/15/202603/15, 03/15/2025, 03/15/2025, Additional history exists Falls Risk Assessment 03/15/2026 03/15/2025 Colorectal Cancer Screening: Stool Based Tests (FOBT/FIT) 04/29/2026 04/29/2025 Cholesterol Screening (Lipid Panel) 11/30/2029 11/30/2024, 03/03/2023 DTaP,Tdap,and Td Vaccines (3 - Td or Tdap) 03/10/2033 03/10/2023, 10/10/2014 Pneumococcal Vaccine: 50+ Years Completed 10/10/2014, 11/15/2010 Zoster Vaccines Completed 06/23/2020, 04/03, 10/16/2011 RSV Immunization Adult Patients Completed 04/02/2023 Influenza Vaccine Completed 03/10/2025, , 03/05/2023, Additional history exists Depression Screening Completed 03/15/2025, 12/03/19 24 HIB Vaccines Aged Out No longer eligi ble based on patient's age to complete this topic HPV Vaccines Aged Out No longer eligi ble based on patient's age to complete this topic Hepatitis A Vaccines Aged Out No long er eligible based on patient's age to complete this topic Hepatitis B Vaccines Aged Out No long er eligible based on patient's age to complete this topic IPV Vaccines Aged Out No longer eligi ble based on patient's age to complete this topic MMR Vaccines Aged Out No longer eligi ble based on patient's age to complete this topic Meningococcal ACWY Vaccine Aged Out N o longer eligible based on patient's age to complete this topic Meningococcal B Vaccine Aged Out No l onger eligible based on patient's age to complete this topic RSV Immunization Patients Under 20 months Aged Out No longer eligible based on patient's age to complete this topic Varicella Vaccines Aged Out No longer eligible based on patient's age to complete this topic Procedures Procedure Name Priority Date/Time Associated Diagnosis Comments POC FECAL OCCULT BLOOD Routine 10:07 AM EST Colon cancer screening XR BARIUM SWALLOW WITH VIDEO AND SPEECH Routine 02/22/2025 11:23 AM EDT Loss of voice Choking, initial encounter CHILD & ADOLESCENT PSYCHIATRIST VIDEOFLUOROSCOPIC SWALLOW STUDY WITH BARIUM Routine 02/22/2025 11:15 AM EDT Loss of voice Choking, initial encounter COMPREHENSIVE METABOLIC PANEL Routine 11/30/2024 8:56 AM EDT Primary hypertension HEMOGLOBIN A1C Routine 11/30/2024 8:56 AM EDT Hyperglycemia LIPID PANEL WITH REFLEX TO DIRECT LDL Routine 11/30/2024 8:56 AM EDT Hypercholesteremia HM DEPRESSION SCREENING Routine 12/03/2023 from Last 3 Months or Most Recently Relevant to Health Maintenance Results * POC Fecal Immunochemical Testing (FIT) Screening (Medicare) (04/29/2025 10:07 AM EST) Fecal Occult Blood POC Negative Negative POC Occult Blood 1 Int QC Pass? Yes Yes Stool Rectum structure / Unknown 04/29/2025 10:07 AM EST Porsche Sandra NP POINT OF CARE TEST ENTER/MARTINE T ORDERABLES Final Result * XR Barium Swallow with Video and Speech (02/22/2025 11:23 AM EDT) Anatomical Region Laterality Modality Head and Neck Radiographic Kya ging 02/22/2025 1:11 PM EDT Impressions 02/22/2025 2:07 PM EDT Tiny amount of flash laryngeal penetration without noel aspiration on large sips of thin barium; Otherwise, normal swallowing function. Please refer to the dedicated speech pathologist report for further details as clinically indicated. -------- FINAL REPORT -------- Dictated By: Tereza Acuna Dictated Date: 02/22/2025 13:11 ET Assigned Physician: Dario Cardozo Reviewed and Electronically Signed By: Dario Cardozo Signed Date: 02/22/2025 14:07 ET Workstation ID: [id number] Transcribed By: Self Edit Transcribed Date: 02/22/2025 13:14 ET Resident/PA/[email or web address] STITCHER: Tereza Acuna Narrative 02/22/2025 2:07 PM EDT CLINICAL HISTORY: Dysphagia choking, loss of voice. STUDY: Modified barium swallow study COMPARISON: None HISTORY: Patient is an 79-year-old male with history of choking, aphonia TECHNIQUE: Multiple sequential fluoroscopic images of the lateral neck were obtained for a swallowing function study. Barium enhanced consistencies of pudding, honey, nectar, thin liquid, semi- solid, and a 13 mm barium tablet were utilized for evaluation. Examination was performed with the speech therapist present. FINDINGS: There is a tiny amount of flash laryngeal penetration without noel aspiration on large sips of thin barium. There was no evidence for penetration or aspiration of any of the other various consistencies. 13 mm barium tablet was swallowed without difficulty with prompt passage of pill from the esophagus past the hypopharynx. DAP: 0.09 Gycm^2 Procedure Note Dario Cardozo MD - 02/22/2025 CLINICAL HISTORY: Dysphagia choking, loss of voice. STUDY: Modified barium swallow study COMPARISON: None HISTORY: Patient is an 79-year-old male with history of choking, aphonia TECHNIQUE: Multiple sequential fluoroscopic images of the lateral neckwere obtained for a swallowing function study. Barium enhancedconsistencies of pudding, honey, nectar, thin liquid, semi-solid, and a 13mm barium tablet were utilized for evaluation. Examination was performedwith the speech therapist present. FINDINGS: There is a tiny amount of flash laryngeal penetration without frankaspiration on large sips of thin barium. There was no evidence forpenetration or aspiration of any of the other various consistencies. 13 mmbarium tablet was swallowed without difficulty with prompt passage of pillfrom the esophagus past the hypopharynx. DAP: 0.09 Gycm^2 IMPRESSION: Tiny amount of flash laryngeal penetration without noel aspiration onlarge sips of thin barium; Otherwise, normal swallowing function. Please refer to the dedicated speech pathologist report for furtherdetails as clinically indicated. -------- FINAL REPORT -------- Dictated By: Tereza Acuna Dictated Date: 02/22/2025 13:11 ET Assigned Physician: Dario Cardozo Reviewed and Electronically Signed By: Dario Cardozo Signed Date: 02/22/2025 14:07 ET Workstation ID: [id number] Transcribed By: Self Edit Transcribed Date: 02/22/2025 13:14 ET Resident/PA/[email or web address] STITCHER: Tereza Acuna us Gabriel Gudino MD IMG FLUOROSCOPY PROCEDURES Final Result * CHILD & ADOLESCENT PSYCHIATRIST videofluoroscopic swallow study with barium (02/22/2025 11:15 AM EDT) Noa Monroy SLP - 02/22/2025 11:15 AM EDT MARCELLO Starr 02/22/2025 3:17 PM Speech/Language Pathology OUTPATIENT MODIFIED BARIUM SWALLOW STUDY/ VIDEOFLUOROSCOPIC EVALUATION OF THE SWALLOW NAME: Bay Lima DATE OF : 1945 DATE: 02/22/2025 RECOMMENDATIONS: Recommendations/Treat Recommendations: ENT evaluation Recommendations Comment: due to pt c/o losing voice Solid Consistency: IDDSI Level 7 Regular Liquid Consistency: Thin liquids Liquid Administration Via: Cup, Straw Recommended Medication Route: PO Supervision: Independent TREATMENT RECOMMENDATIONS: Evaluation Only - No Additional Skilled CHILD & ADOLESCENT PSYCHIATRIST Needs Indicated at this time. Summary and Impressions: Bay Lima is a 79 y.o. who presents with Oropharyngeal Swallow Within Normal Limits on MBS. Prolonged oral phase due missing lower dentition. No pharyngeal residue and no tracheal aspiration assessed. No bolus impedence noted with Esophageal sweep. Results reviewed with patient. TIME IN: 1030 TIME OUT: 1115 MINUTES: 45 WATER AEROBICS INSTRUCTOR REQUIRED: No GENERAL INFORMATION: Ordering Physician: Gabriel Gudino MD Radiologist: Tereza GOETZ Date of Evaluation: 02/22/25 Type of Study: Initial MBS Reason for Study: Pt c/o choking and voice changes x 6 months, no other difficulties noted. Diet Prior to this Study: Regular/thin liquids Dysphagia Diagnosis: Within Functional Limits SUBJECTIVE: Pleasant, reports missing lower dentition. Ambulatory. Speech/Voice strong and able to precisely articulate throughout session. Pt reports occasionally losing voice, inconsistent to timing of day. Loss of voice [R49.1] Choking, initial encounter [T17.308A] CHILD & ADOLESCENT PSYCHIATRIST VIDEOFLUOROSCOPIC SWALLOW STUDY WITH BARIUM [[id number]] XR BARIUM SWALLOW WITH VIDEO AND SPEECH [[id number]] ALLERGIES: No Known Allergies OBJECTIVE Respiratory status: Room air DYSPHAGIA HISTORY/PREVIOUS MBSs none DYSPHAGIA SYMPTOMS REPORTED: Choking MENTAL STATUS: Alert , Responsive, and Cooperative Oral/Motor: Oral motor skills WNL for speech/swallowing tasks. Dentition: other edentulous on bottom only Fluoroscopy View: Lateral Position during Eval: Standing CONSISTENCIES TRIALED FOOD: IDDSI Level 7 Regular and IDDSI Level 4 Puree LIQUID: IDDSI Level 3 Moderately Thick, IDDSI Level 2 Mildly Thick, and IDDSI Level 0 Thin BARIUM TABLET: whole with water Oral Phase: Oral Phase: Within Functional Limits (for mastication, bolus manipulation and adequate clearance.) Prolonged mastication due to missing dentition however functional oral clearance. Pharyngeal Phase: Pharyngeal Phase: Within Functional Limits (Adequate hyolaryngeal movement and epiglottic inversion, age related trace pharyngeal residue and flash laryngeal penetration with large sips thin liquids.) Cricopharyngeal/Esophageal Phase: Cricopharyngeal Phase: Within Functional Limits Cricopharyngeal Comment: Complete duration and distention of the pharyngoesophageal segment with no obstruction of flow through the PES. 8- Point Penetration Aspiration Scale (PAS) Consistency- (IDDSI level) Score Comments Moderate thick liquids (3) 1- Material does not enter airway. Mildly thick liquids (2) 1- Material does not enter airway. Thin liquids (0) 2- Material enters the airway, remains above the vocal folds, and is ejected from the airway. Flash laryngeal penetration with large sips thin liquids. Puree (4) 1- Material does not enter airway. Regular solids (7) 1- Material does not enter airway. Barium tablet 1- Material does not enter airway. Other: LEODAN Martinez, Patrick Colmenares, Cb WOLFE, JAILYN Collins, & JAILYN Guerrero. A Penetration-Aspiration Scale. Dysphagia 11:93-98, 1996. EDUCATION Education: Education provided: Reviewed MBS video Swallow strategies Recommended referral Applied Knowledge, Verbal Understanding, and Demonstrated Skills Noa Zuñiga, CHILD & ADOLESCENT PSYCHIATRIST 02/22/2025 Please note that swallowing is a dynamic process and the skills reflected during this brief assessment may not necessarily represent the patient's swallowing function during an entire meal. Ongoing clinical judgment is strongly advised. us Gabriel Gudino MD CHILD & ADOLESCENT PSYCHIATRIST ORDERABLES Final Result * Lipid panel with reflex to direct LDL (11/30/2024 8:56 AM EDT) Cholesterol 151 0 - 200 mg/dL LAB CHEMISTRY METHOD 11/30/2024 2:02 PM EDT [facility] Triglycerides 150 0 - 150 mg/dL LAB CHEMISTRY METHOD 11/30/2024 2:02 PM EDT [facility] HDL 55 >=40 mg/dL LAB CHEMISTRY METHOD 11/30/2024 2:02 PM EDT [facility] LDL Calculated 66 0 - 100 mg/dL LAB CHEMISTRY METHOD 11/30/2024 2:02 PM EDT [facility] VLDL Cholesterol Javier 30 mg/dL LAB CHEMISTRY METHOD 11/30/2024 2:02 PM EDT [facility] Non HDL Chol. (LDL+VLDL) 96 <145 mg/dL LAB CHEMISTRY METHOD 11/30/2024 2:02 PM EDT [facility] Chol/HDL Ratio 2.7 0.0 - 4.4 LAB CHEMISTRY METHOD 11/30/2024 2:02 PM EDT [facility] Blood Venous blood specimen / Unknown Venipuncture / Unknown 11/30/2024 8:56 AM EDT 11/30/2024 8:56 AM EDT Gabriel Gudino MD LAB BLOOD ORDERABLES Final Resul t [facility] [address] [place] [address], * Hemoglobin A1c (11/30/2024 8:56 AM EDT) Hemoglobin A1C 5.6 <6.5 % LAB CHEMISTRY METHOD 11/30/2024 12:37 PM EDT [facility] Mean Bld Glu Estim. 114 mg/dL LAB CHEMISTRY METHOD 11/30/2024 12:37 PM EDT [facility] Blood Venous blood specimen / Unknown Venipuncture / Unknown 11/30/2024 8:56 AM EDT 11/30/2024 8:56 AM EDT us Gabriel Gudino MD LAB BLOOD ORDERABLES Final Resul t [facility] [address] [place] [address], [place] [phone] * (ABNORMAL) Comprehensive metabolic panel (11/30/2024 8:56 AM EDT) Sodium 141 133 - 145 mmol/L LAB CHEMISTRY METHOD 11/30/2024 2:02 PM [facility] Potassium 4.7 3.5 - 5.5 mmol/L LAB CHEMISTRY METHOD 11/30/2024 2:02 PM [facility] Chloride 107 96 - 110 mmol/L LAB CHEMISTRY METHOD 11/30/2024 2:02 PM [facility] CO2 28 21 - 32 mmol/L LAB CHEMISTRY METHOD 11/30/2024 2:02 PM [facility] Anion Gap 6 3 - 11 LAB CHEMISTRY METHOD 11/30/2024 2:02 PM [facility] Glucose 115(H) 70 - 100 mg/dL LAB CHEMISTRY METHOD 11/30/2024 2:02 PM [facility] BUN 16 5 - 25 mg/dL LAB CHEMISTRY METHOD 11/30/2024 2:02 PM [facility] Creatinine 1.30 0.70 - 1.30 mg/dL LAB CHEMISTRY METHOD 11/30/2024 2:02 PM [facility] eGFR 56(L) >=60 mL/min/1. 73m2 LAB CHEMISTRY METHOD 11/30/2024 2:02 PM [facility] Comment:Calculation based on the Chronic Kidney Disease Epidemiology Collaboration (CKD-EPI) equation refit without adjustment for race. BUN/Creatinine Ratio 12.3 LAB CHEMISTRY METHOD 11/30/2024 2:02 PM [facility] Calcium 9.5 8.5 - 10.5 mg/dL LAB CHEMISTRY METHOD 11/30/2024 2:02 PM [facility] AST (SGOT) 16 10 - 42 unit/L LAB CHEMISTRY METHOD 11/30/2024 2:02 PM [facility] ALT (SGPT) 18 10 - 60 unit/L LAB CHEMISTRY METHOD 11/30/2024 2:02 PM [facility] Alkaline Phosphatase 84 42 - 121 unit/L LAB CHEMISTRY METHOD 11/30/2024 2:02 PM [facility] Total Protein 6.9 6.0 - 8.0 g/dL LAB CHEMISTRY METHOD 11/30/2024 2:02 PM [facility] Albumin 3.6 3.2 - 5.0 g/dL LAB CHEMISTRY METHOD 11/30/2024 2:02 PM [facility] Total Bilirubin 0.7 0.0 - 1.4 mg/dL LAB CHEMISTRY METHOD 11/30/2024 2:02 PM [facility] Blood Venous blood specimen / Unknown Venipuncture / Unknown 11/30/2024 8:56 AM EDT 11/30/2024 8:56 AM EDT Gabriel Gudino MD LAB BLOOD ORDERABLES Final Resul t [facility] [address] [place] [address], * Depression Screening (12/03/2023) Depression Screening ABSTRACTED Irma Provider HEALTH MAINTENANCE Final Result from Last 3 Months or Most Recently Relevant to Health Maintenance Insurance MEDICARE [facility] MEDICAID [place] Care Teams Cork Grinder Relationship Specialty Start Date End Date Gabriel Gudino MD [address] [place] [address] PCP - General Internal Medicine 08/31/20
--- OUTSIDE RECORDS SUMMARY | 2025-05-04 13:36 | XMS_ITS | Encounter Summary ---
Author Organization [facility] Address [address] [place] [address] Care Team Providers Care Associate Professor Of Theology Name Role Phone Gabriel Gudino Primary Care Provider Unavailabl e Encounter Details Date Type Department Care Team (Late st Contact Info) Description 02/14/2020 Orders Only [facility] 2 Rad Act 1 [address] [place] [address] Dayday Vincent MD [address] [place], [place] [id number] Social History Tobacco Use Types Packs/Day Years [...] on filedocumented in this encounter Care Teams Associate Professor Of Theology Relationship Specialty Start Date End Date Gabriel Gudino [address] [place] [id number] PCP - General Internal Medicine 10/09/20 documented as of this encounter
--- OUTSIDE RECORDS SUMMARY | 2025-05-04 13:36 | XMS_ITS | Encounter Summary ---
Author Organization [facility] Address [address] [place] [address] Care Team Providers Care Sap Data Architect Name Role Phone Gabriel Gudino MD Primary Care Provider [phone] Encounter Details Date Type Department Care Team (Late st Contact Info) Description 03/15/2025 Results Follow-Up Adult [address] [phone] Porsche Sandra NP [address] [place], [place] Social History Tobacco Use Types Packs/Day Years [...] PM EDT documented as of this encounter Plan of Treatment Upcoming Encounters Date Type Department Care Team (Late st Contact Info) Description 09/13/2025 11:00 AM EDT Office Visit Adult Medicine [place] [id number] [place], [place] [phone] Gabriel Gudino MD [address] [place], [place] documented as of this encounter Visit Diagnoses Not on filedocumented in this encounter Additional Health Concerns Assessment Noted Time PHQ-9 Depression Total Score: 0 03/15/20 25 10:00 AM EDT documented as of this encounter Care Teams Sap Data Architect Relationship Specialty Start Date End Date Gabriel Gudino MD [address] [place] [address] PCP - General Internal Medicine 08/31/20 documented as of this encounter
--- OUTSIDE RECORDS SUMMARY | 2025-05-04 13:36 | XMS_ITS | Clinical Summary ---
Author Organization [facility] Address [address] [place] [address] Care Team Providers Care Business Systems Analyst Name Role Phone Gudino Gabriel Primary Care Provider Unavailabl e Allergies No known active allergies Medications MULTIVITAMIN ORAL Take by mouth. Activ e latanoprost (XALATAN) 0.005% ophthalmic solution 1 drop nightly. Acti ve acetaminophen (TYLENOL) 325 mg tablet Take 2 tablets (650 mg total) by mouth every 6 hours. 0 Active oxyCODONE IR (ROXICODONE) 5 mg tablet Take 1 tablet (5 mg total) by mouth every 3 hours as needed for breakthrough pain. Max Daily Amount: 40 mg 5 tablet 08/26/2019 4:39 PM EDT 0 Active Additional Information Patient not taking.Reported on 03/27/2020 clopidogreL (PLAVIX) 75 mg tablet Take 1 tablet (75 mg total) by mouth daily. 10 tablet 08/26/2019 4:39 PM EDT 0 Active Additional Information Patient not taking.Reported on 03/27/2020 allopurinoL (ZYLOPRIM) 100 mg tablet Take 1 tablet (100 mg total) by mouth daily. 0 Active amLODIPine (NORVASC) 5 mg tablet Take 1 tablet (5 mg total) by mouth daily. 0 Active Additional Information Patient not taking.Reported on 03/27/2020 aspirin 81 mg EC tablet Take 1 tablet (81 mg total) by mouth daily. 0 Active atorvastatin (LIPITOR) 40 mg tablet Take 1 tablet (40 mg total) by mouth nightly. 0 Active carvediloL (COREG) 3.125 mg tablet Take 1 tablet (3.125 mg total) by mouth every 12 hours. 0 Active Additional Information Patient not taking.Informant: Self, Reported on 03/27/2020 indomethacin (INDOCIN) 25 mg capsule Take 1-2 Caps by mouth 2 times daily (with meals). 0 Active amLODIPine (NORVASC) 10 mg tablet 0 Active carvediloL (COREG) 6.25 mg tablet 0 Active Active Problems Problem Noted Date Diagnosed Date Carotid stenosis, left 06/28/2019 Abdominal aortic aneurysm (A AA) greater than 5.5 cm in diameter in male 06/28/2019 Overview (06/28/2019): seeing Dr. Sweeney. 5.6 cm Assessment & Plan (03/27/2020 2:01 PM EDT): This is a 74-year-old gentleman who is now 6 months after fenestrated endovascular aneurysm repair. Overall his repair appears to be stable with no sign of endoleak and for patent stents to the visceral segment. We will plan on seeing him in 6 months with a repeat CT angiogram. In the meantime, he should remain on his aspirin and statin as prescribed. Should he develop any problems in the interim, he we would be happy to see him in clinic for an earlier follow-up appointment. Peripheral vascular disease 06/18/2018 Neuropathy 09/14/2015 Glaucoma 10/10/2014 CKD (chronic kidney disease) stage 3, GFR 30-59 ml/min 01/21/2012 Benign neoplasm of colon 12/27/2011 Overview (06/28/2019): Small tubular adenomas x 2 at CN 2004. CN 2011, 4 mm rectal polyp: Tubular adenoma. Next CN in 5 yrs. Elevated prostate specific antigen (PSA) 007 Gout 05/01/2005 Hypertension 05/01/2005 Encounters Date Type Department Care Team Description 02/10/2025 Telephone [facility] Vascular Surgery [address] [place] [id number] Car Checker: Efrain Logan MD from Last 3 Months Family History Medical History Relation Name Comments No Known Problems Father Relation Name Status Comments Father Social History Tobacco Use Types Packs/Day Years Used Date Smoking Tobacco: Former Cigarettes 1 20 Smokeless Tobacco: Never Tobacco Cessation:Counseling Given: No Alcohol Use Standard Drinks/Week Comments Not Currently 0 (1 standard drink = 0.6 oz pur e alcohol) Sex and Gender Information Value Date Recorded Sex Assigned at Not on file Legal Sex Male 10:44 AM EST Gender Identity Not on file Sexual Orientation Not on file Last Filed Vital Signs Vital Sign Reading Time Taken Comments Blood Pressure 145/73 10/09/2020 10:52 AM EDT Pulse 67 10/09/2020 10:52 AM EDT Temperature 36.8 C (98.2 F) 08/26/2019 3:31 PM EDT Respiratory Rate 16 10/09/2020 10:52 AM EDT Oxygen Saturation 98% 10/09/2020 10:52 AM EDT Inhaled Oxygen Concentration - - Weight 78.5 kg (173 lb) 10/09/2020 10:52 AM EDT Height 165.1 cm (5' 5 ) 10/09/2020 10:52 AM EDT Body Mass Index 28.79 10/09/2020 10:52 AM EDT Plan of Treatment Health Maintenance Due Date Last Done Comments Medicare AWV 1945 CT Lung Cancer Screening (Baseline) 04/18/2022 04/18/2021, 10/09/2020, 03/27/2020, Additional history exists Alcohol/Substance Use Screening 06/02/2024 Depression Screening and Follow-Up 06/02/2024 Fall Risk Screening 06/02/2024 Health Care Proxy Review 06/02/2024 Social Drivers of Health Annual Screening 06/02/2024 Influenza Vaccine (#1) 2024 , 02/04/2024, 06/02/2023, Additional history exists COVID-19 Vaccine ( season) 2025 02/13/2024, 03/05/2023, 03/07/2022, Additional history exists Basic Metabolic Panel 11/30/2025 11/30/2024 , 07/11/2023, 06/20/2023, Additional history exists DTaP,Tdap,and Td Vaccines (3 - Td or Tdap) 03/10/2033 03/10/2023, 06/02/2022, 10/10/2014, Additional history exists Pneumococcal Vaccine: 50+ Years Completed 10/31/2016, 10/10/2014, 11/15/2010 Zoster Vaccines Completed 06/23/2020, 04/03, 10/16/2011 RSV Vaccine (60+ years old and patients) Completed 04/02/2023 Colon Cancer Screening Discontinued FOBT / Fit Test Discontinued 11/30/2024, 03/02, 03/17/2020 Cologuard Discontinued Colonoscopy Discontinued Hepatitis B Vaccines Aged Out No long er eligible based on patient's age to complete this topic Sigmoidoscopy Discontinued Medical Devices Implanted Type Area Delivery Associate Device Identifier Shelf Expiration Date Model / Serial / Lot Graft Aortic Aneurysm Body Proximal Fenestrated Pre Loaded [id number] Zenith - Study - Sna - [id number] Implanted:Qty: 1 on 08/25/2019 by Efrain Caal MD at [facility] Graft N/A: Thoracic [employer] 07/26/2022 [id number] / NA / [id number] Description:INVESTIGATIONAL DEVICE Graft Endovascular Iliac Leg Aaa [id number] Zenith Spiral-Z - [id number] Implanted:Qty: 1 on 08/25/2019 by Efrain Caal MD at [facility] Graft Left: Arterial [employer] 07/08/2022 [id number] / / [id number] Description:LEFT COMMON MEGHAN C Graft Endovascular Iliac Leg Aaa [id number] Zenith Spiral-Z - [id number] Implanted:Qty: 1 on 08/25/2019 by Efrain Caal MD at [facility] Graft Right: Arterial [employer] 07/30/2022 [id number] / / [id number] Description:RIGHT COMMON STARLA AC System Closure Suture Medicated Perclose Proglide 6fr - Sna - [id number] Implanted:Qty: 2 on 08/25/2019 by Efrain Caal MD at [facility] Implant Left: Groin [employer] 05/01/2021 [id number] / NA / [id number] System Closure Suture Medicated Perclose Proglide 6fr - Sna - [id number] Implanted:Qty: 2 on 08/25/2019 by Efrain Caal MD at [facility] Implant Right: Groin [employer] 05/01/2021 [id number] / NA / [id number] System Closure Suture Medicated Perclose Proglide 6fr - [id number] Implanted:Qty: 2 on 08/25/2019 by Efrain Caal MD at [facility] Implant Right: Arterial [employer] 05/01/2021 [id number] / / [id number] Stent Icast Covered 5mm X 22mm X 120cm - [id number] - [id number] Implanted:Qty: 1 on 08/25/2019 by Efrain Caal MD at [facility] Stent Left: Arterial [employer] [facility] 11/06/2021 [id number] / [id number] / Description:LEFT RENAL ARTER Y Stent Vascular Self Expanding Over The Wire [id number] Absolute Pro - [id number] Implanted:Qty: 1 on 08/25/2019 by Efrain Caal MD at [facility] Stent N/A: Arterial [employer] 05/01/2020 [id number] / / [id number] Description:DISTAL SMA Stent Icast Covered 7mm X 22mm X 120cm - [id number] - [id number] Implanted:Qty: 1 on 08/25/2019 by Efrain Caal MD at [facility] Stent N/A: Arterial [employer] [facility] 04/01/2022 [id number] / [id number] / Description:celiac Stent Icast Covered 6mm X 38mm X 120cm - [id number] - [id number] Implanted:Qty: 1 on 08/25/2019 by Efrain Caal MD at [facility] Stent N/A: Arterial [employer] [place] 06/19/2021 [id number] / [id number] / Description:SMA Stent Icast Covered 5mm X 22mm X 120cm - [id number] - [id number] Implanted:Qty: 1 on 08/25/2019 by Efrain Caal MD at [facility] Stent Right: Arterial [employer] [facility] 11/03/2020 [id number] / [id number] / Description:RIGHT RENAL Graft Aortic Aneurysm Leg Body Proximal Bifurcated [id number] Zenith - Study - [id number] Implanted:Qty: 1 on 08/25/2019 by Efrain Caal MD at [facility] N/A: Aorta [employer] 07/26/2022 [id number] / / [id number] Description:INVESTIGATIONAL DEVICE Procedures * Due to [place] Vaxart law, this organization might not be sharing negative HIV tests. Procedure Name Priority Date/Time Associated Diagnosis Comments AMB EXTERNAL CT CHEST, OUTSIDE RESULT 04/18/2021 BASIC METABOLIC PANEL Routine 08/26/2019 4:34 AM EDT from Last 3 Months or Most Recently Relevant to Health Maintenance Results * Due to [place] Vaxart law, this organization might not be sharing negative HIV tests. * AMB EXTERNAL CT CHEST, OUTSIDE RESULT (04/18/2021) 04/18/2021 us Onbase Scan [facility] AMB EXTERNAL RESULT PROCEDURE S Final Result * (ABNORMAL) Basic Metabolic Panel (08/26/2019 4:34 AM EDT) NA 136 135 - 145 mmol/L 08/26/2019 5:46 AM EDT [facility] K 3.8 3.5 - 5.3 mmol/L 08/26/2019 5:46 AM EDT [facility] Cl 103 97 - 110 mmol/L 08/26/2019 5:46 AM EDT [facility] CO2 25 24 - 32 mmol/L 08/26/2019 5:46 AM EDT [facility] BUN 15 7 - 23 mg/dL 08/26/2019 5:46 AM EDT [facility] Creatinine 1.08 0.60 - 1.30 mg/dL 08/26/2019 5:46 AM EDT [facility] Glucose 128(H) 70 - 99 mg/dL 08/26/2019 5:46 AM EDT [facility] Calcium 8.5(L) 8.7 - 10.7 mg/dL 08/26/2019 5:46 AM EDT [facility] Anion Gap 8 5 - 15 08/26/2019 5:46 AM EDT [facility] eGFR Non- 67(L) >=90 mL/min/BSA 08/26/2019 5:46 AM EDT [facility] eGFR 78(L) >=90 mL/min/BSA 08/26/2019 5:46 AM EDT [facility] Comment: Units = mL/min/1.73 m2 Glomerular Filtration Rate (GFR) is estimated based on the CKD-EPI Creatinine Equation (2009). Stage Description GFR 1 Normal >=90 mL/min/BSA 2 Mildly decreased GFR 60-89 mL/min/BSA 3 Moderately decreased GFR 30-59 mL/min/BSA 4 Severely decreased GFR 15-29 mL/min/BSA 5 Kidney Failure <15 mL/min/BSA Blood Structure of peripheral vein / Unknown Venipuncture / Unknown 08/26/2019 4:34 AM EDT 08/26/2019 5:00 AM EDT us Efrain Caal MD LAB BLOOD ORDERABLES Final Re sult [facility] [address] [place] [id number], from Last 3 Months or Most Recently Relevant to Health Maintenance Insurance MEDICARE IRA [facility] Advance Directives * Full Code (Latest Code Status on File) Date Activated Date Inactivated Comments 08/25/2019 12:30 PM 08/26/2019 7:18 PM * Full Code Date Activated Date Inactivated Comments 08/25/2019 6:27 AM 08/25/2019 12:30 PM Care Teams Business Systems Analyst Relationship Specialty Start Date End Date Gabriel Gudino [address] [place] [id number] PCP - General Internal Medicine 10/09/20
== END 2025-05-04 11:17 | disposition home or self-care (01) ==
LOC: HO.LAB 11:16
PROVIDERS: PCP Internal Medicine; Visit Provider Surgery Vascular Surgery
DX: I71.40 Abdominal aortic aneurysm, without rupture, unspecified (principal)
CPT/HCPCS: 36415; 82565; 84520

== ENCOUNTER 2025-05-11 08:37 | Outpatient (REF) | payer MEDICARE, SELFPAY ==
--- NOTE | ~2025-05-11 | CT_ITS ---
CLINICAL HISTORY: I71.40 - Abdominal aortic aneurysm, without rupture, unspecified CT angiogram of the abdomen and pelvis with 3-D postprocessing Comparison: CT/REG/SR - CT ANGIO ABDOMEN PELVIS - 05/03/24 10:[address]/SR - CT ABDOMEN PELVIS ANGIOGRAPHY WITH IV CONTRAST - 03/04/23 09:01 EDT Findings: No dissection. Dilation of the descending thoracic aorta, measuring 3.0 cm, stable. Endovascular stent graft beginning within the suprarenal abdominal aorta and extending into the bilateral common iliac arteries. The graft is patent. There are stents within the celiac, superior mesenteric and bilateral renal arteries which are patent. Infrarenal abdominal aorta aneurysm sac measuring 3.6 x 3.9 cm, stable. Delayed images were not obtained. Within that limitation, there is no evidence of endoleak. 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 Significant stenosis of the origin of right internal iliac artery, unchanged. Occlusion of the left internal iliac artery, unchanged. Severe calcified atherosclerotic disease Significant stenosis. Clear lung bases. Cholelithiasis. No gallbladder wall thickening or pericholecystic fluid. Right renal cyst. Mild scarring in the upper pole of the right kidney. The prostate measures 5.0 cm in transverse dimension with mild intravesicular extension. The bladder and other solid organs are unremarkable. No abdominal or pelvic lymphadenopathy. Small hiatal hernia. No bowel wall thickening or dilation. A normal appendix is identified. No ascites. No acute fracture. Impression: Stable examination. Endoaortobiliac graft, patent without evidence of endoleak. This document has been electronically signed by: Herminia Salgado MD on 05/12/2025 14:09:19
--- NOTE | ~2025-05-11 | US_ITS ---
CLINICAL HISTORY: I65.23 - Occlusion and stenosis of bilateral carotid arteries US bilateral carotid duplex Comparison: US/SR - US CAROTID DUPLEX BI - 04/26/24 10:05 EST US/SR - US CAROTID DOPPLER BILATERAL - 04/03/23 09:56 EDT Findings: No significant plaque within the common carotid arteries. Moderate to severe plaque within the carotid bulbs. Moderate to severe plaque within the internal carotid arteries . Waveforms are normal morphology. Peak systolic and end-diastolic velocities: Right CCA: 71.5 cm/s Right ICA: 198.0 cm/s Right ICA EDV: 65.5 cm/sec Right systolic ICA/CCA ratio: 1.83 Right ECA: Significant stenosis Right vertebral artery flow antegrade. Left CCA: 26.5 cm/s Left ICA: 48.7 cm/s Left ICA EDV: 19.6 cm/sec Left systolic ICA/CCA ratio: 1.41 Left ECA: Unremarkable Left vertebral artery flow antegrade. Criteria for grading carotid stenosis Stenosis % ICA PSV cm/s ICA/CCA PSV ratio ICA EDV 0-50% <125 <2.0 <40 50-69% 125-230 2.0-4.0 40-100 70% + > 230 >4.0 >100 Impression: 1. Normal left internal carotid velocities, no significant stenosis (0-49% stenosis). Low carotid velocity in the left common carotid artery proximally. 2. 50-79% stenosis right internal carotid artery This document has been electronically signed by: Patricio Egan MD on 05/12/2025 10:30:27
[2025-05-11] MEDS: iohexoL 350 MG/ML 100 ML INFUS..BTL 81 ML IV (09:47)
[2025-05-11 16:24] LABS: Creatinine POC 1.3 mg/dL (0.5-1.4); GFR POC 56
== END 2025-05-11 08:38 | disposition home or self-care (01) ==
LOC: HO.CT 08:37
PROVIDERS: PCP Internal Medicine; Visit Provider Surgery Vascular Surgery
DX: I65.23 Occlusion and stenosis of bilateral carotid arteries (principal); I71.40 Abdominal aortic aneurysm, without rupture, unspecified
CPT/HCPCS: 74174; 82565; 93880; Q9967

== ENCOUNTER → 2025-05-11 08:38 | Outpatient (BNV) | payer MEDICARE, SELFPAY | PROVIDERS: PCP Internal Medicine; Visit Provider Radiology Diagnostic Radiology | DX: I71.40 Abdominal aortic aneurysm, without rupture, unspecified (principal); Z95.828 Presence of other vascular implants and grafts; I65.23 Occlusion and stenosis of bilateral carotid arteries | CPT/HCPCS: 74174 ==

== ENCOUNTER 2025-05-19 09:47 | Outpatient (AMB) | payer MEDICARE, SELFPAY ==
--- NOTE | 2025-05-19 09:52 | A.OFFVIS_ITS ---
Intake Visit Reasons: 1 yr follow up carotid & AAA 05/11/25 Intake Note: Patient presents for 1 year follow up carotid and AAA. He has no complaints. Accompanied by: Spouse Allergies No Known Allergies Allergy (Verified 05/19/25 09:57) HPI HPI 1 yr follow up carotid & AAA 05/11/25: Details: The patient is an 79-year-old male presenting for a routine follow-up visit for surveillance of his aortic aneurysm status post-graft and carotid artery stenosis. He underwent an aortic graft repair at [facility] in early 2019 and is now six years post-procedure. He is now for CT follow-up. He is also being monitored for carotid artery disease. He now presents for follow-up regarding his carotid ultrasound as well. In terms of his carotids he is asymptomatic. The patient is being maintained on aspirin and atorvastatin.. He reports staying active by shoveling snow and cutting grass. [facility] Medical History Glaucoma Neuropathy Elevated prostate specific antigen (PSA) CKD (chronic kidney disease) Benign neoplasm of colon Gout PAD (peripheral artery disease) HTN (hypertension) CVD (cardiovascular disease) Surgical History Hx of tonsillectomy H/O tooth extraction Hx of colonoscopy Family History Daughter No problems noted. Father No problems noted. Mother No problems noted. Social History Patient Tobacco Use Status: Former Tobacco user Tobacco use type: Cigarette Review of Systems Const All systems reviewed & are unremarkable except as noted in HPI and below Reports no additional complaints ENT Reports Normal hearing present Card Denies chest pain, Denies chest pain at rest, Denies chest pain with activity and Denies pedal edema Resp Denies cough GI Denies abdominal pain Musc Denies abnormal gait, Denies muscle cramps and Denies radiating pain into limb Skin/Breast Denies skin ulcer and Denies wounds Neuro Reports Normal hearing present and Denies abnormal gait Psych Reports no additional complaints Physical Exam Const General: cooperative, healthy appearing and comfortable Orientation/consciousness: oriented to person, oriented to place and oriented to time HEENT Head: Yes normal to inspection Neck Neck: Yes normal visual inspection Carotids: no bruits Chest Chest palpation & inspection: normal inspection of the chest Resp Effort & Inspection: normal respiratory effort and able to speak in complete sentences Auscultation: clear to auscultation bilaterally, no crackles, no rales, no rhonchi and no wheezes Cardio Rate: regular rate Rhythm: regular rhythm Heart sounds: S1 normal heart sound present and S2 normal heart sound present Bruits: no carotid bruits Peripheral pulses: Peripheral pulses 2+ throughout GI Inspection: Yes normal to inspection Skin Wounds: no wounds Hair: normal Neuro General: oriented to person, oriented to place and oriented to time Cranial nerves: Yes CN's II-XII intact bilaterally and Yes Normal hearing present Cognition (Neuro): normal cognition Motor exam (neuro): 5/5 motor strength present throughout Extrem Other: venous exam: No significant superficial varicosities or spider telangiectasias, minimal edema General: No clubbing, No cyanosis and No edema Psych Appearance: grossly normal Mental Status: mental status grossly normal Speech and movement: Normal speech and movement present Results Reviewed Results Reviewed: CT scan dated 05/11/2025 demonstrates stable aortic endograft. No evidence of endoleak. Carotid ultrasound dated 05/11/2025 demonstrates right side 50-79% stenosis with a peak systolic of 1 89 left side 0-49% stenosis. Written report and images were reviewed. Assessment & Plan Assessment & Plan (1) Abdominal aortic aneurysm: Comment: 08/25/2019 - fenestrated endograft repair aorta performed at [facility] Code(s): I71.4 - Abdominal aortic aneurysm, without rupture Category: Medical Qualifiers: Abdominal aorta location: unspecified Presence of rupture: without rupture Qualified Code(s): I71.40 - Abdominal aortic aneurysm, without rupture, unspecified Plan: In short patient has aortic endograft. We have discussed the pathophysiology of aortic aneurysms and the risk of ruptures. We have discussed rupture risk based on size. In addition we have discussed conservative measures and risk factor modification for prevention of increase in size of the aneurysm. the patient is scheduled for surveillance follow-up in approximately 1 year. Thank you for allowing us to participate in the care of this patient (2) Bilateral carotid artery stenosis: Code(s): I65.23 - Occlusion and stenosis of bilateral carotid arteries Category: Medical Plan: In short patient has asymptomatic carotid disease. We have reviewed signs and symptoms of a stroke. We also discussed risk factor modification inclusive a healthy diet low in cholesterol. The patient will follow up with us with surveillance ultrasound of the carotids 1 year. Should there be any changes or signs or symptoms of a stroke we will be happy to see them back sooner. Thank you for allowing us to participate in this patient's care. If there are any qu estions or concerns please do not hesitate to contact us. Orders: Orders Blood Urea Nitrogen 1 Year I71.40 - Abdominal aortic aneurysm, without rupture, unspecified Creatinine 1 Year I71.40 - Abdominal aortic aneurysm, without rupture, unspecified US carotid duplex BI 1 Year I65.23 - Occlusion and stenosis of bilateral carotid arteries CT angio abdomen pelvis 1 Year I71.40 - Abdominal aortic aneurysm, without rupture, unspecified Coding Level of Care Code Est Pt Level 4 (15429) Diagnoses Abdominal aortic aneurysm (AAA) without rupture, unspecified part I71.40 Abdominal aorta location: unspecified Presence of rupture: without rupture Bilateral carotid artery stenosis I65.23
--- OUTSIDE RECORDS SUMMARY | 2025-05-19 11:40 | XMS_ITS | Encounter Summary ---
Author Organization [facility] Prior to 04/02/2024 Address [address] [place] [address] Care Team Providers Care Radiagraph Operator Name Role Phone Selena Vee MD Primary Care Provider Katiana Raman MD Primary Care Provider Gabriel Robins MD Primary Care Provider [phone] Encounter Details Date Type Department Care Team Description 04/22/2019 Old Medical Records Medical Records [address] [place] [address] Abstract, Provider Social History Tobacco Use Types Packs/Day Years Used Date Smoking Tobacco: Former Cigarettes Q uit: 06/30/2008 Smokeless Tobacco: Never Comments:.5 ppd for 35 years , quit 05/14 Alcohol Use Standard Drinks/Week Comments Yes 6.7 (1 standard drin k = 0.6 oz pure alcohol) on occassion - 2-3 drink per week Physical Activity Answer Date Recorded On average, how many days pe r week do you engage in moderate to strenuous exercise (like walking fast, running, jogging, dancing, swimming, biking, or other activities that cause a light or heavy sweat)? 0 days 03/16/2020 On average, how many minutes do you engage in exercise at this level? 0 min 03/16/2020 Sex Assigned at Date Recorded Not on file Job Start Date Occupation Industry Not on file Not on file Not on file documented as of this encounter Plan of Treatment Not on file documented as of this encounter Visit Diagnoses Not on filedocumented in this encounter Care Teams Radiagraph Operator Relationship Specialty Start Date End Date Selena Vee MD PCP - General Internal Medicine 03/31/15 07/20/20 Katiana Cooley MD PCP - General Internal Medicine 07/21/20 08/30/20 Gabriel Gudino MD [address] [place] [address] PCP - General Internal Medicine 08/31/20 documented as of this encounter
--- OUTSIDE RECORDS SUMMARY | 2025-05-19 11:40 | XMS_ITS | Clinical Summary ---
Author Organization [facility] Prior to 04/02/2024 Address [address] [place] [address] Care Team Providers Care Locomotive Repairer Diesel Name Role Phone Gabriel Gudino MD Primary Care Provider [phone] Allergies No known active allergies Medications Medication Sig Dispensed Refills Start Date End Date Status MULTIVITAMIN OR 1 po qd 0 Active latanoprost (XALATAN) 0.005 % ophthalmic solution 1 Drop at bedtime. 0 Active aspirin 81 MG EC tablet Take 1 Tablet by mouth daily. 0 Active lisinopril (PRINIVIL,ZESTRIL) 5 MG tablet Take 1 Tablet by mouth daily for 180 days. 30 Tablet 5 04/21/2023 Active atorvastatin (LIPITOR) 40 MG tablet Take 1 Tablet by mouth daily. 90 Tablet 1 12/18/2023 Active amlodipine (NORVASC) 10 MG tablet Take 1 Tablet by mouth daily. 90 Tablet 0 02/10/2024 Active carvedilol (COREG) 6.25 MG tablet Take 1 Tablet by mouth 2 times daily (with meals). 180 Tablet 0 02/10/2024 Active allopurinol (ZYLOPRIM) 100 MG tablet Take 1 Tablet by mouth daily. 90 Tablet 1 03/30/2024 Active Active Problems Problem Noted Date Hyperglycemia 09/03/2021 PAD (peripheral artery disease) 06/18/19 19 Neuropathy 09/14/2015 Glaucoma 10/10/2014 CKD (chronic kidney disease) stage 3, GF R 30-59 ml/min 01/21/2012 Benign neoplasm of colon 12/27/2011 Overview: Small tubular adenomas x 2 at CN 2004. CN 2012, 4 mm rectal polyp: Tubular adenoma. Next CN in 5 yrs. Elevated prostate specific antigen (PSA) 12/26/2006 Hypertension 05/01/2005 GOUT 05/01/2005 Abdominal aortic aneurysm (AAA) greater than 5.5 cm in diameter in male Overview: seeing Dr. Sweeney. 5.[address] Lovett in [facility] V[facility] Surgery. FEVAR repair in 08/25/2019. Custom made endo graft with stented fenestration of celiac, SMA and bilateral renal arteries. Follows with vascular v 6 months, with ordered CTA. PVD (peripheral vascular disease) Carotid stenosis, left Overview: US 2021 right 50%-69% Left <50% Immunizations Name Administration Dates Next Due COVID-19 (Moderna) 09/26/2021,,08/09/2020,07/12 COVID-19 (Moderna) PT Reported 04/24/2021,2020,07/12/2020 Covid-19 Bivalent (Moderna) 03/07/2022 Influenza (> 6 Months) 02/03/2019,2014,04/05/2013,02/16 Influenza Flu (PT Reported) 03/03/2023, 6,02/28/2014 Influenza vaccine high dose age 65 and over 03/07/2022,02/09/2018 Pneumoccoccal(Adult) Polysac charide PPSV23 11/15/2010 Pneumococcal Conjugate PCV-13 10/10/2014 Shingrix (Patient reported) 04/24/2020 Shingrix (Recombinant zoster vaccine) 06/23/2020 ,04/24/2020 TD (STATE SUPPLIED FOR ADULT S AND CHILDREN) 10/10/2014,10/10/2014 Tdap 03/10/2023 Zostavax 10/16/2011 Family History Relation Name Status Comments Brother [...] Cigarettes Q uit: 06/30/2008 Smokeless Tobacco: Never Tobacco Cessation:Counseling Given: Not Answered Comments:.5 ppd for 35 years, quit 05/14 Alcohol Use Standard Drinks/Week Comments [...] file Not on file Not on file Last Filed Vital Signs Vital Sign Reading Time Taken Comments Blood Pressure 134/60 08/14/2023 10:25 AM EDT Pulse 55 12/03/2023 2:54 PM EDT Temperature 36.5 C (97.7 F) 12/03/2023 2:54 PM EDT Respiratory Rate 14 12/03/2023 2:54 PM EDT Oxygen Saturation 98% 09/05/2022 11:46 AM EDT Inhaled Oxygen Concentration - - Weight 75.8 kg (167 lb) 12/03/2023 2:54 PM EDT Height 165.1 cm (5' 5 ) 12/03/2023 2:54 PM EDT Body Mass Index 27.79 12/03/2023 2:54 PM EDT Plan of Treatment Health Maintenance Due Date Last Done Comments FALL RISK ASSESSMENT 09/06/2023 09/05/2022, 09/03/2021, 05/09/2021 COLON CANCER SCREEN WITH STO OL CARD 03/11/2024 03/11/2023, 05/22/2021, 03/17/2020, Additional history exists BMI CHECK/ADVISE 06/02/2024 12/03/2023, , 08/06/2023, Additional history exists DEPRESSION SCREEN 12/02/2024 12/03/2023, , 09/03/2021 Covid-19 Vaccine (2022-2 4 season) 2025 03/07/2022, 09/26/2021, 04/24/2021, Additional history exists INFLUENZA (#1) 2025 03/03/2023, 10/2021, 01/21/2020 (External Completion of Vaccination per patient), Additional history exists CHOLESTEROL SCREENING 03/03/2028 03/03/2023 , 07/18/2021, 03/17/2020, Additional history exists DTAP/TDAP/TD (3 - Td or Tdap) 03/10/2033, 06/02/2022, 10/10/2014, Additional history exists PNEUMOCOCCAL VACCINE Completed 10/10/2014, 11/16/19 11 SHINGLES VACCINE Completed 06/23/2020, , 04/24/2020, Additional history exists Care Teams Locomotive Repairer Diesel Relationship Specialty Start Date End Date Gabriel Gudino MD [address] [place] [address] PCP - General Internal Medicine 08/31/20
--- OUTSIDE RECORDS SUMMARY | 2025-05-19 11:41 | XMS_ITS | Encounter Summary ---
Author Organization [facility] Prior to 04/02/2024 Address [address] [place] [address] Care Team Providers Care Poultry Processing Supervisor Name Role Phone Gabriel Gudino MD Primary Care Provider [phone] Reason for Visit * Reason Onset Date Comments Medication 07/02/2023 Encounter Details Date Type Department Care Team Description 07/02/2023 Pt. Non Urgent Medical Question Adult Medicine [address] [phone] Gabriel Gudino MD [address] [place] [address] [phone] Social History Tobacco Use Types Packs/Day Years [...] on file documented as of this encounter Miscellaneous Notes * Telephone Encounter - Janelle Roy - 07/02/2023 1:35 PM ESTFrom: Henry Webster To: Anthony Gudino Sent: 07/02/2023 1:31 PM EST Subject: Question regarding BLOOD TEST PANEL - BMP Maybe I should get off the Lisinopril 5 mg you told me it could make it better or worse . What do you think? documented in this encounter Plan of Treatment Not on file documented as of this encounter Visit Diagnoses Not on filedocumented in this encounter Care Teams Poultry Processing Supervisor Relationship Specialty Start Date End Date Gabriel Gudino MD [address] [place], [place] [phone] PCP - General Internal Medicine 08/31/20 documented as of this encounter
--- OUTSIDE RECORDS SUMMARY | 2025-05-19 11:41 | XMS_ITS | Encounter Summary ---
Author Organization [facility] Prior to 04/02/2024 Address [address] [place] [address] Care Team Providers Care Student Teaching Coordinator Name Role Phone Gabriel Gudino MD Primary Care Provider [phone] Encounter Details Date Type Department Care Team Description 11/25/2023 Orders Only Adult Medicine [address] [phone] Gabriel Gudino MD [address] [place] [address] [phone] Social History Tobacco Use Types Packs/Day Years [...] on filedocumented in this encounter Care Teams Student Teaching Coordinator Relationship Specialty Start Date End Date Gabriel Gudino MD [address] [place] [address] PCP - General Internal Medicine 08/31/20 documented as of this encounter
--- OUTSIDE RECORDS SUMMARY | 2025-05-19 11:41 | XMS_ITS | Encounter Summary ---
Author Organization [facility] Prior to 04/02/2024 Address [address] [place] [address] Care Team Providers Care Foreign Language Professor Name Role Phone Gabriel Gudino MD Primary Care Provider [phone] Encounter Details Date Type Department Care Team Description 09/19/2021 Deep Submergence Vehicle Crewmember Report Medical Records [address] [place] [address] Serjio Allen MD Social History Tobacco Use Types Packs/Day Years [...] file Not on file Not on file COVID-19 Exposure Response Date Recorded In the last 10 days, have yo u been in contact with someone who was confirmed or suspected to have Coronavirus/COVID-19? No / Unsure 09/03/2021 3:09 PM EDT documented as of this encounter Plan of Treatment Not on file documented as of this encounter Visit Diagnoses Not on filedocumented in this encounter Care Teams Foreign Language Professor Relationship Specialty Start Date End Date Gabriel Gudino MD [address] [place] [address] PCP - General Internal Medicine 08/31/20 documented as of this encounter
--- OUTSIDE RECORDS SUMMARY | 2025-05-19 11:41 | XMS_ITS | Encounter Summary ---
Author Organization [facility] Prior to 04/02/2024 Address [address] [place] [address] Care Team Providers Care Alarm Service Technician Name Role Phone Gabriel Gudino MD Primary Care Provider [phone] Encounter Details Date Type Department Care Team Description 03/26/2022 Refill Adult Medicine [address] [phone] Gabriel Gudino MD [address] [place] [address] [phone] Social History Tobacco Use Types Packs/Day Years [...] on filedocumented in this encounter Care Teams Alarm Service Technician Relationship Specialty Start Date End Date Gabriel Gudino MD [address] [place] [address] PCP - General Internal Medicine 08/31/20 documented as of this encounter
--- OUTSIDE RECORDS SUMMARY | 2025-05-19 11:41 | XMS_ITS | Encounter Summary ---
Author Organization [facility] Prior to 04/02/2024 Address [address] [place] [address] Care Team Providers Care Ground Intelligence Officer Name Role Phone Gabriel Gudino MD Primary Care Provider [phone] Encounter Details Date Type Department Care Team Description 10/02/2023 Caddymaster Report Medical Records [address] [place] [address] Nazia Doty NP Social History Tobacco Use Types Packs/Day Years [...] on filedocumented in this encounter Care Teams Ground Intelligence Officer Relationship Specialty Start Date End Date Gabriel Gudino MD [address] [place] [address] PCP - General Internal Medicine 08/31/20 documented as of this encounter
--- OUTSIDE RECORDS SUMMARY | 2025-05-19 11:41 | XMS_ITS | Encounter Summary ---
Author Organization [facility] Prior to 04/02/2024 Address [address] [place] [address] Care Team Providers Care Engineering Agent Name Role Phone Selena Vee MD Primary Care Provider Katiana Raman MD Primary Care Provider Gabriel Robins MD Primary Care Provider [phone] Encounter Details Date Type Department Care Team Description 06/28/2019 Size Mixer Report Medical Records [address] [place] [phone] [place] [address] Social History Tobacco Use Types Packs/Day Years [...] on filedocumented in this encounter Care Teams Engineering Agent Relationship Specialty Start Date End Date Selena Vee MD PCP - General Internal Medicine 03/31/15 07/20/20 Katiana Cooley MD PCP - General Internal Medicine 07/21/20 08/30/20 Gabriel Gudino MD [address] [place] [address] PCP - General Internal Medicine 08/31/20 documented as of this encounter
--- OUTSIDE RECORDS SUMMARY | 2025-05-19 11:41 | XMS_ITS | Encounter Summary ---
Author Organization [facility] Address [address] [place] [address] Care Team Providers Care Shuttle Veneering Supervisor Name Role Phone Gabriel Gudino Primary Care Provider Unavailabl e Encounter Details Date Type Department Care Team (Late st Contact Info) Description 03/27/2020 Orders Only [facility] Ultrasound [address] [place] [address] Seth Marroquin MD [address] [place], [place] [phone] Social History Tobacco Use Types Packs/Day Years [...] on filedocumented in this encounter Care Teams Shuttle Veneering Supervisor Relationship Specialty Start Date End Date Gabriel Gudino [address] [place] [address] PCP - General Internal Medicine 10/09/20 documented as of this encounter
--- OUTSIDE RECORDS SUMMARY | 2025-05-19 11:41 | XMS_ITS | Encounter Summary ---
Author Organization [facility] Prior to 04/02/2024 Address [address] [place] [address] Care Team Providers Care Vein Access Technician Name Role Phone Selena Vee MD Primary Care Provider Katiana Raman MD Primary Care Provider Gabriel Robins MD Primary Care Provider [phone] Encounter Details Date Type Department Care Team Description 12/13/2016 Telephone Medicine/Pediatrics - [address] [phone] Selena Vee MD Social History Tobacco Use Types Packs/Day Years Used Date Smoking Tobacco: Passive Smo ke Exposure - Never Smoker Cigarettes Quit: Smokeless Tobacco: Never Comments:.5 ppd for 35 [...] on filedocumented in this encounter Care Teams Vein Access Technician Relationship Specialty Start Date End Date Selena Vee MD PCP - General Internal Medicine 03/31/15 07/20/20 Katiana Cooley MD PCP - General Internal Medicine 07/21/20 08/30/20 Gabriel Gudino MD [address] [place] [address] PCP - General Internal Medicine 08/31/20 documented as of this encounter
--- OUTSIDE RECORDS SUMMARY | 2025-05-19 11:41 | XMS_ITS | Encounter Summary ---
Author Organization [facility] Prior to 04/02/2024 Address [address] [place] [address] Care Team Providers Care Auto Body Detailer Name Role Phone Gabriel Gudino MD Primary Care Provider [phone] Encounter Details Date Type Department Care Team Description 05/06/2023 Worm Grower Report Medical Records [address] [place] [address] Abstract, Provider Social History Tobacco Use Types [...] on filedocumented in this encounter Care Teams Auto Body Detailer Relationship Specialty Start Date End Date Gabriel Gudino MD [address] [place] [address] [phone] PCP - General Internal Medicine 08/31/20 documented as of this encounter
--- OUTSIDE RECORDS SUMMARY | 2025-05-19 11:41 | XMS_ITS | Encounter Summary ---
Author Organization [facility] Prior to 04/02/2024 Address [address] [place] [address] Care Team Providers Care Track Equipment Operator Name Role Phone Selena Vee MD Primary Care Provider Katiana Raman MD Primary Care Provider Gabriel Robins MD Primary Care Provider [phone] Reason for Referral * EXTERNAL (Urgent) - Authorized/Booked Specialty Diagnoses / Procedures Referred By Contcyndie horton Referred To Contact Vascular Surgery Diagnoses Abdominal aortic aneurysm (AAA) greater than 5.5 cm in diameter in male (HCC) Procedures REFERRAL TO VASCULAR SURGERY (IN NETWORK) Selena Vee MD [address] [place] [address] Enrique Sweeney MD [address] [facility] [address] [place] [address] Referral ID Status Reason Start Date Expiration Date V isits Requested Visits Authorized SEE NOTE Authorized/B ooked 04/16/2019 07/20/2019 0 0 Encounter Details Date Type Department Care Team Description 04/16/2019 Orders Only Medicine/Pediatrics - [address] [phone] Selena Vee MD Social History Tobacco Use [...] on filedocumented in this encounter Care Teams Track Equipment Operator Relationship Specialty Start Date End Date Selena Vee MD PCP - General Internal Medicine 03/31/15 07/20/20 Katiana Cooley MD PCP - General Internal Medicine 07/21/20 08/30/20 Gabriel Gudino MD [address] [place] [address] PCP - General Internal Medicine 08/31/20 documented as of this encounter
--- OUTSIDE RECORDS SUMMARY | 2025-05-19 11:41 | XMS_ITS | Encounter Summary ---
Author Organization [facility] Prior to 04/02/2024 Address [address] [place] [address] Care Team Providers Care Helicopter Utility Aircrewman Name Role Phone Hi Pinedo MD Primary Care Provider Unavail Selena Topete MD Primary Care Provider UnavailKatiana Carr MD Primary Care Provider Unava Gabriel Posadas MD Primary Care Provider [phone] Encounter Details Date Type Department Care Team Description 03/28/2015 SCAN Medical Records [address] [place] [id number] Abstract, Provider Social History Tobacco Use Types [...] on filedocumented in this encounter Care Teams Helicopter Utility Aircrewman Relationship Specialty Start Date End Date Hi Pinedo MD PCP - General Internal Medicine 04/11/14 03/30/15 Selena Vee MD PCP - General Internal Medicine 03/31/15 07/20/20 Katiana Cooley MD PCP - General Internal Medicine 07/21/20 08/30/20 Gabriel Gudino MD [address] [place] [address] PCP - General Internal Medicine 08/31/20 documented as of this encounter
--- OUTSIDE RECORDS SUMMARY | 2025-05-19 11:41 | XMS_ITS | Clinical Summary ---
Author Organization [facility] Address [address] [place] [address] Phone Care Team Providers Care Bouffant Curtain Machine Tender Name Role Phone Gabriel Gudino MD Primary Care Provider [phone] Allergies No known active allergies Medications atorvastatin (LIPITOR) 40 MG tablet Take 40 mg by mouth 1 (one) time each day Active carvedilol (COREG) 6.25 MG tablet Take 6.25 mg by mouth in the morning and 6.25 mg in the evening. Take with meals. Active allopurinol (ZYLOPRIM) 100 MG tablet Take 100 mg by mouth 1 (one) time each day Active amLODIPine-ator vastatin (CADUET) 10-10 MG per tablet Take 1 tablet by mouth 1 (one) time each day Active latanoprost (XALATAN) 0.005 % ophthalmic solution 1 drop every night Active Prolensa 0.07 % solution INSTILL 1 DROP IN THE OPERATIVE EYE ONCE DAILY FOR 21 DAYS THEN START 1 DAY PRE-OP 4 Active lisinopril 5 MG tablet Take 5 mg by mouth 3 Active Lotemax SM 0.38 % gel INSTILL 1 DROP IN THE OPERATIVE EYE TWICE DAILY FOR 3 WEEKS THEN DAILY FOR 1 WEEK THEN STOP. START MORNING OF SURGERY 4 Active moxifloxacin (VIGAMOX) 0.5 % ophthalmic solution INSTILL 1 DROP IN THE OPERATIVE EYE THREE TIMES DAILY STARTING 1 DAY PRE-OP AND CONTINUE FOR 7 DAYS POST-OP 4 Active Active Problems Problem Noted Date Diagnosed Date Chronic kidney disease, stage 2 (mild) 4 Hypertensive chronic kidney disease 03/07/2022 Type 2 diabetes mellitus with hyperglycemia 10/2021 Abdominal aortic aneurysm without rupture 2021 Stage 3a chronic kidney disease 03/07/2022 Hypercholesterolemia 03/07/2022 Gout 03/07/2022 Hyperglycemia 09/03/2021 Left carotid artery stenosis 06/28/2019 Overview (07/25/2022): US 2021 right 50%-69% Left <50% Peripheral vascular disease 06/18/2018 Neuropathy 09/14/2015 Glaucoma 10/10/2014 Benign neoplasm of colon 12/27/2011 Overview (07/25/2022): Small tubular adenomas x 2 at CN 2004. CN 2011, 4 mm rectal polyp: Tubular adenoma. Next CN in 5 yrs. Small tubular adenomas x 2 at CN 2004. CN 2011, 4 mm rectal polyp: Tubular adenoma. Next CN in 5 yrs. Elevated prostate specific antigen (PSA) 007 Immunizations Immunization Administration Dates Next Due Influenza Split High Dose Pr eservative Free IM 03/07/2022,02/09/2018 Influenza, Unspecified 03/03/2023,2018,02/13/2016,02/07,02/28/2014,04/05/2013,02/17/2012 Moderna SARS-COV-2 09/26/2021,,08/09/2020,07/12 Moderna SARS-CoV-2 Bivalent 12+ 03/07/2022 Pneumococcal Conjugate 13-Valent 10/10/2014 Pneumococcal Polysaccharide 11/15/2010 Shingrix 06/23/2020,04/24/2020 Td 10/10/2014,10/10/2014 Tdap 03/10/2023 Zoster 10/16/2011 Family History Medical History Relation Comments Liver disease Brother Lung cancer Father Coronary artery disease Mother Diabetes Mother Seizures Sister Relation Status Comments Brother Alive Father Mother Sister Alive Social History Tobacco Use Types Packs/Day Years Used Date Smoking Tobacco: Former Cigarettes Smokeless Tobacco: Never Tobacco Cessation:Counseling Given: No Alcohol Use Standard Drinks/Week Comments Yes 0 (1 standard drink = 0.6 oz pur e alcohol) Sex and Gender Information Value Date Recorded Sex Assigned at Not on file Legal Sex Male 1:07 PM EDT Gender Identity Not on file Sexual Orientation Not on file Last Filed Vital Signs Vital Sign Reading Time Taken Comments Blood Pressure 147/62 09/11/2023 2:21 PM EDT Pulse 51 09/11/2023 2:21 PM EDT Temperature - - Respiratory Rate - - Oxygen Saturation - - Inhaled Oxygen Concentration - - Weight 73.9 kg (163 lb) 09/11/2023 2:21 PM EDT Height - - Body Mass Index - - Plan of Treatment Health Maintenance Due Date Last Done Comments Diabetes: Ophthalmology Exam 03/07/2022 04/09/2007 Diabetes: Pedal Pulse Checked 03/07/2022 Diabetes: Sensory Foot Exam 03/07/2022 Diabetes: Visual Foot Exam 03/07/2022 Diabetes: Hemoglobin A1C 11/12/2023 08/12/2023 Influenza Vaccine (#1) 2025 , 03/03/2023, 03/07/2022, Additional history exists Pneumococcal Vaccine: 50+ Years Completed 10/31/2016, 10/10/2014, 11/15/2010 Hepatitis B Vaccine Aged Out No longe r eligible based on patient's age to complete this topic Insurance Medicare [facility] Medicare [facility] Care Teams Bouffant Curtain Machine Tender Relationship Specialty Start Date End Date Gabriel Gudino MD PCP - General Internal Medicine 01/08/22
--- OUTSIDE RECORDS SUMMARY | 2025-05-19 11:41 | XMS_ITS | Encounter Summary ---
Author Organization [facility] Address [address] [place] [address] Care Team Providers Care Fur Trimmer Name Role Phone Gabriel Gudino Primary Care Provider Unavailabl e Encounter Details Date Type Department Care Team (Late st Contact Info) Description 07/28/2020 Orders Only [facility] Nuclear Medicine [address] [place] [address] Guillermo Lewis MD [address] [place] [address] [phone] Social History Tobacco Use Types Packs/Day Years [...] on filedocumented in this encounter Care Teams Fur Trimmer Relationship Specialty Start Date End Date Gabriel Gudino [address] [place] [address] PCP - General Internal Medicine 10/09/20 documented as of this encounter
--- OUTSIDE RECORDS SUMMARY | 2025-05-19 11:41 | XMS_ITS | Encounter Summary ---
Author Organization [facility] Prior to 04/02/2024 Address [address] [place] [address] Care Team Providers Care Teller Head Name Role Phone Selena Vee MD Primary Care Provider Katiana Raman MD Primary Care Provider Gabriel Robins MD Primary Care Provider [phone] Encounter Details Date Type Department Care Team Description 04/22/2019 Telephone Medicine/Pediatrics - [address] [phone] Selena Vee MD Social History Tobacco Use [...] on filedocumented in this encounter Care Teams Teller Head Relationship Specialty Start Date End Date Selena Vee MD PCP - General Internal Medicine 03/31/15 07/20/20 Katiana Cooley MD PCP - General Internal Medicine 07/21/20 08/30/20 Gabriel Gudino MD [address] [place] [address] PCP - General Internal Medicine 08/31/20 documented as of this encounter
--- OUTSIDE RECORDS SUMMARY | 2025-05-19 11:41 | XMS_ITS | Encounter Summary ---
Author Organization [facility] Address [address] [place] [address] Care Team Providers Care Contractor Buyer Name Role Phone Gabriel Gudino Primary Care Provider Unavailabl e Encounter Details Date Type Department Care Team (Late st Contact Info) Description 02/14/2020 Orders Only [facility] 2 Rad Act 1 [address] [place] [address] Dayday Vincent MD [address] [place], [place] [id number] Social History Tobacco Use Types Packs/Day Years [...] on filedocumented in this encounter Care Teams Contractor Buyer Relationship Specialty Start Date End Date Gabriel Gudino [address] [place] [address] PCP - General Internal Medicine 10/09/20 documented as of this encounter
--- OUTSIDE RECORDS SUMMARY | 2025-05-19 11:41 | XMS_ITS | Encounter Summary ---
Author Organization [facility] Prior to 04/02/2024 Address [address] [place] [address] Care Team Providers Care It Program Manager Name Role Phone Gabriel Gudino MD Primary Care Provider [phone] Encounter Details Date Type Department Care Team Description 07/31/2021 Supervisor Sewer System Report Medical Records [address] [place] [address] Enrique Sweeney MD Social History Tobacco Use Types Packs/Day [...] Exposure Response Date Recorded In the last month, have you been in contact with someone who was confirmed or suspected to have Coronavirus / COVID-19? No / Unsure 07/18/2021 8:53 AM EST documented as of this encounter Plan of Treatment Not on file documented as of this encounter Visit Diagnoses Not on filedocumented in this encounter Care Teams It Program Manager Relationship Specialty Start Date End Date Gabriel Gudino MD [address] [place] [address] PCP - General Internal Medicine 08/31/20 documented as of this encounter
--- OUTSIDE RECORDS SUMMARY | 2025-05-19 11:41 | XMS_ITS | Encounter Summary ---
Author Organization [facility] Prior to 04/02/2024 Address [address] [place] [address] Care Team Providers Care Manager Summer Name Role Phone Selena Vee MD Primary Care Provider Katiana Raman MD Primary Care Provider Gabriel Robins MD Primary Care Provider [phone] Encounter Details Date Type Department Care Team Description 06/16/2019 Turbine Assembler Report Medical Records [address] [place] [address] Serjio Allen MD Social History Tobacco Use [...] on filedocumented in this encounter Care Teams Manager Summer Relationship Specialty Start Date End Date Selena Vee MD PCP - General Internal Medicine 03/31/15 07/20/20 Katiana Cooley MD PCP - General Internal Medicine 07/21/20 08/30/20 Gabriel Gudino MD [address] [place] [address] PCP - General Internal Medicine 08/31/20 documented as of this encounter
--- OUTSIDE RECORDS SUMMARY | 2025-05-19 11:41 | XMS_ITS | Encounter Summary ---
Author Organization [facility] Prior to 04/02/2024 Address [address] [place] [address] Care Team Providers Care Detail Assembler Name Role Phone Selena Vee MD Primary Care Provider Katiana Raman MD Primary Care Provider Gabriel Robins MD Primary Care Provider [phone] Encounter Details Date Type Department Care Team Description 04/13/2019 Pt. Non Urgent Medical Question Medicine/Pediatrics - [address] [phone] Selena Vee MD Social History Tobacco Use [...] on file documented as of this encounter Progress Notes * Jennifer Ruvalcaba L.P.N. - 04/13/2019 9:58 AM ESTFrom: Henry Webster To: Selena Vee MD Sent: 04/13/2019 9:58 AM EST Subject: Health check Have you heard from Dr. Garcia yet? documented in this encounter Plan of Treatment Not on file documented as of this encounter Visit Diagnoses Not on filedocumented in this encounter Care Teams Detail Assembler Relationship Specialty Start Date End Date Selena Vee MD PCP - General Internal Medicine 03/31/15 07/20/20 Katiana Cooley MD PCP - General Internal Medicine 07/21/20 08/30/20 Gabriel Gudino MD [address] [place], [place] [phone] PCP - General Internal Medicine 08/31/20 documented as of this encounter
--- OUTSIDE RECORDS SUMMARY | 2025-05-19 11:41 | XMS_ITS | Encounter Summary ---
Author Organization [facility] Prior to 04/02/2024 Address [address] [place] [address] Care Team Providers Care Shop Router Name Role Phone Selena Vee MD Primary Care Provider Katiana Raman MD Primary Care Provider Gabriel Robins MD Primary Care Provider [phone] Encounter Details Date Type Department Care Team Description 08/25/2019 [facility] Medical Records [address] [place] [address] Efrain Caal MD Social History Tobacco Use Types Packs/Day [...] on filedocumented in this encounter Care Teams Shop Router Relationship Specialty Start Date End Date Selena Vee MD PCP - General Internal Medicine 03/31/15 07/20/20 Katiana Cooley MD PCP - General Internal Medicine 07/21/20 08/30/20 Gabriel Gudino MD [address] [place] [address] PCP - General Internal Medicine 08/31/20 documented as of this encounter
--- OUTSIDE RECORDS SUMMARY | 2025-05-19 11:42 | XMS_ITS | Encounter Summary ---
Author Organization [facility] Address [address] [place] [address] Care Team Providers Care Building Consultant Name Role Phone Gabriel Gudino MD Primary Care Provider [phone] Encounter Details Date Type Department Care Team (Late st Contact Info) Description 03/15/2025 Results Follow-Up Adult [address] [phone] Porsche Sandra NP [address] [place], [place] Social History Tobacco Use Types Packs/Day [...] 11:00 AM EDT Office Visit Adult Medicine [place] [address] [place], [place] [phone] Gabriel Gudino MD [address] [place], [place] documented as of this encounter Visit Diagnoses Not on filedocumented in this encounter Additional Health Concerns Assessment Noted Time PHQ-9 Depression Total Score: 0 03/15/20 25 10:00 AM EDT documented as of this encounter Care Teams Building Consultant Relationship Specialty Start Date End Date Gabriel Gudino MD [address] [place] [address] PCP - General Internal Medicine 08/31/20 documented as of this encounter
--- OUTSIDE RECORDS SUMMARY | 2025-05-19 11:42 | XMS_ITS | Clinical Summary ---
Author Organization [facility] [address] [place] [address] [place] [phone] Phone Care Team Providers Care Communications Assistant Name Role Phone Gabriel Gudino MD Primary Care Provider [phone] Allergies No known active allergies Medications aspirin 81 mg EC tablet Take 1 tablet (81 mg total) by mouth 1 (one) time each day. Active MULTIVITAMIN ORAL 1 po qd Active carvediloL (COREG) 6.25 mg tablet Take 1 tablet (6.25 mg total) by mouth 2 (two) times a day with meals. 180 tablet 1 5 06/11/19 26 Active atorvastatin (LIPITOR) 40 mg tablet Take 1 tablet (40 mg total) by mouth 1 (one) time each day. 90 each 1 5 06/11/19 26 Active amLODIPine (NORVASC) 10 mg tablet Take 1 tablet (10 mg total) by mouth 1 (one) time each day. 90 tablet 1 5 08/07/19 26 Active allopurinoL (ZYLOPRIM) 100 mg tablet Take 1 tablet (100 mg total) by mouth 1 (one) time each day. 90 tablet 1 5 Active lisinopriL (PRINIVIL,ZESTR IL) 5 mg tablet Take 1 tablet (5 mg total) by mouth 1 (one) time each day. 90 tablet 1 5 Active lisinopriL (PRINIVIL,ZESTR IL) 5 mg tablet Take 1 tablet (5 mg total) by mouth 1 (one) time each day. 90 tablet 1 5 05/02/20 25 Discontinu ed(Reorder ) Active Problems Problem Noted Date Diagnosed Date Abdominal aortic aneurysm (A AA) greater than 5.5 cm in diameter in male 04/21/2024 Overview (04/21/2024): seeing Dr. Sweeney. 5.[address] Lovett in [facility]. FEVAR repair in 08/25/2019. Custom made endo graft with stented fenestration of celiac, SMA and bilateral renal arteries. Follows with vascular v 6 months, with ordered CTA. Carotid stenosis, left 04/21/2024 Overview (04/21/2024): US 2021 right 50%-69% Left <50% PVD (peripheral vascular disease) 04/21/2024 Hyperglycemia 09/03/2021 PAD (peripheral artery disease) 06/18/2018 Neuropathy 09/14/2015 Glaucoma 10/10/2014 CKD (chronic [...] 10:00 AM EDT Office Visit Adult Medicine [address] [phone] Porsche Sandra NP Dysphagia, unspecified type (Primary Dx); Primary hypertension; Stage 3 chronic kidney disease, unspecified whether stage 3a or 3b CKD (CMS/HCC V24, CMS/HCC V28); Prediabetes; Colon cancer screening 03/15/2025 Results Follow-Up Adult [address] [phone] Porsche Sandra, DIRECTOR OF ENTERPRISE APPLICATIONS 02/22/2025 10:57 AM EDT - 02/22/2025 11:59 PM EDT Hospital Encounter [facility] Xray [address] [place] [address] Noa Bartlett, MARCELLO Loss of voice; Choking, initial encounter Discharge [...] HISTORICAL AAA REPAIR; COMMENT: FEVAR repair at [facility] Medical History Medical History Date Comments CKD (chronic kidney disease) stage 3, GFR 30-59 ml/min ([facility] V24, [facility] V28) 01/21/2012 DX:CKD (chronic kidney disea se) stage 3, GFR 30-59 ml/min ([facility]) Elevated prostate specific a ntigen (PSA) 12/26/2006 [...] than 5.5 cm in diameter in male ([facility] V24) DX:Abdominal aortic aneurysm (AAA) greater than 5.5 cm in diameter in male ([facility]); COMMENT: seeing Dr. Sweeney. 5.6 cm CVA (cerebral vascular accid ent) ([facility] V24, [facility] V28) DX:CVA (cerebral vascular a ccident) ([facility]) PVD (peripheral vascular dis ease) ([facility] V24) DX:PVD (peripheral vascular disease) ([facility]) Carotid stenosis, left DX:Caroti d stenosis, left [...] Orientation Straight 12/08/2024 4: 09 PM EDT Last Filed Vital Signs Vital Sign Reading [...] 11:00 AM EDT Office Visit Adult Medicine [facility] [address] [place] [address] Gabriel Gudino MD [address] [place] [address] Health Maintenance Due Date Last Done Comments [...] EDT Loss of voice Choking, initial encounter MERCURY PURIFIER VIDEOFLUOROSCOPIC SWALLOW STUDY WITH BARIUM Routine 02/22/2025 [...] Signed Date: 02/22/2025 14:07 ET Workstation ID: [id number] Transcribed By: Self Edit Transcribed Date: 02/22/2025 13:14 ET Resident/PA/DIRECTOR OF ENTERPRISE APPLICATIONS: Tereza Acuna Narrative 02/22/2025 2:07 PM EDT [...] Signed Date: 02/22/2025 14:07 ET Workstation ID: [id number] Transcribed By: Self Edit Transcribed Date: 02/22/2025 13:14 ET Resident/PA/DIRECTOR OF ENTERPRISE APPLICATIONS: Tereza Acuna us Gabriel Gudino MD IMG FLUOROSCOPY PROCEDURES Final Result * MERCURY PURIFIER videofluoroscopic swallow study with barium (02/22/2025 11:15 [...] RECOMMENDATIONS: Evaluation Only - No Additional Skilled MERCURY PURIFIER Needs Indicated at this time. Summary and Impressions: Bay Lima is a 79 y.o. who presents with Oropharyngeal Swallow Within Normal Limits on MBS. Prolonged oral phase due missing lower dentition. No pharyngeal residue and no tracheal aspiration assessed. No bolus impedence noted with Esophageal sweep. Results reviewed with patient. TIME IN: 1030 TIME OUT: 1115 MINUTES: 45 CUSTOM LEATHER PRODUCTS MAKER REQUIRED: No GENERAL INFORMATION: Ordering Physician: Gabriel [...] of voice [R49.1] Choking, initial encounter [T17.308A] MERCURY PURIFIER VIDEOFLUOROSCOPIC SWALLOW STUDY WITH BARIUM [[id number]] XR BARIUM SWALLOW WITH VIDEO AND SPEECH [[id number]] ALLERGIES: No Known Allergies OBJECTIVE Respiratory status: [...] Verbal Understanding, and Demonstrated Skills Noa Zuñiga, MERCURY PURIFIER 02/22/2025 Please note that swallowing is a dynamic process and the skills reflected during this brief assessment may not necessarily represent the patient's swallowing function during an entire meal. Ongoing clinical judgment is strongly advised. Gabriel Gudino MD MERCURY PURIFIER ORDERABLES Final Result * Lipid panel with reflex to direct LDL (11/30/2024 8:56 AM EDT) Cholesterol 151 0 - 200 mg/dL LAB CHEMISTRY METHOD 11/30/2024 2:02 PM EDT [facility] Triglycerides 150 0 - 150 mg/dL LAB CHEMISTRY METHOD 11/30/2024 2:02 PM EDT [facility] HDL 55 >=40 mg/dL LAB CHEMISTRY METHOD 11/30/2024 2:02 PM EDT [facility] LDL Calculated 66 0 - 100 mg/dL LAB CHEMISTRY METHOD 11/30/2024 2:02 PM EDT [facility] VLDL Cholesterol Javier 30 mg/dL LAB CHEMISTRY METHOD 11/30/2024 2:02 PM EDT [facility] Non HDL Chol. (LDL+VLDL) 96 <145 mg/dL LAB CHEMISTRY METHOD 11/30/2024 2:02 PM EDT [facility] Chol/HDL Ratio 2.7 0.0 - 4.4 LAB CHEMISTRY METHOD 11/30/2024 2:02 PM EDT [facility] Blood Venous blood specimen / Unknown Venipuncture / Unknown 11/30/2024 8:56 AM EDT 11/30/2024 8:56 AM EDT Gabriel Gudino MD LAB BLOOD ORDERABLES Final Resul t [facility] [address] [place] [address], [place] [phone] * Hemoglobin A1c (11/30/2024 8:56 AM EDT) Hemoglobin A1C 5.6 <6.5 % LAB CHEMISTRY METHOD 11/30/2024 12:37 PM EDT [facility] Mean Bld Glu Estim. 114 mg/dL LAB CHEMISTRY METHOD 11/30/2024 12:37 PM EDT [facility] Blood Venous blood specimen / Unknown Venipuncture / Unknown 11/30/2024 8:56 AM EDT 11/30/2024 8:56 AM EDT Gabriel Gudino MD LAB BLOOD ORDERABLES Final Resul t [facility] [address] [place] [address], * (ABNORMAL) Comprehensive metabolic panel (11/30/2024 8:56 AM EDT) Sodium 141 133 - 145 mmol/L LAB CHEMISTRY METHOD 11/30/2024 2:02 PM [facility] Potassium 4.7 3.5 - 5.5 mmol/L LAB CHEMISTRY METHOD 11/30/2024 2:02 PM [facility] Chloride 107 96 - 110 mmol/L LAB CHEMISTRY METHOD 11/30/2024 2:02 PM [facility] CO2 28 21 - 32 mmol/L LAB CHEMISTRY METHOD 11/30/2024 2:02 PM [facility] Anion Gap 6 3 - 11 LAB CHEMISTRY METHOD 11/30/2024 2:02 PM [facility] Glucose 115(H) 70 - 100 mg/dL LAB CHEMISTRY METHOD 11/30/2024 2:02 PM [facility] BUN 16 5 - 25 mg/dL LAB CHEMISTRY METHOD 11/30/2024 2:02 PM [facility] Creatinine 1.30 0.70 - 1.30 mg/dL LAB CHEMISTRY METHOD 11/30/2024 2:02 PM [facility] eGFR 56(L) >=60 mL/min/1. 73m2 LAB CHEMISTRY METHOD 11/30/2024 2:02 PM [facility] Comment:Calculation based on the Chronic Kidney Disease Epidemiology Collaboration (CKD-EPI) equation refit without adjustment for race. BUN/Creatinine Ratio 12.3 LAB CHEMISTRY METHOD 11/30/2024 2:02 PM [facility] Calcium 9.5 8.5 - 10.5 mg/dL LAB CHEMISTRY METHOD 11/30/2024 2:02 PM [facility] AST (SGOT) 16 10 - 42 unit/L LAB CHEMISTRY METHOD 11/30/2024 2:02 PM [facility] ALT (SGPT) 18 10 - 60 unit/L LAB CHEMISTRY METHOD 11/30/2024 2:02 PM [facility] Alkaline Phosphatase 84 42 - 121 unit/L LAB CHEMISTRY METHOD 11/30/2024 2:02 PM [facility] Total Protein 6.9 6.0 - 8.0 g/dL LAB CHEMISTRY METHOD 11/30/2024 2:02 PM [facility] Albumin 3.6 3.2 - 5.0 g/dL LAB CHEMISTRY METHOD 11/30/2024 2:02 PM [facility] Total Bilirubin 0.7 0.0 - 1.4 mg/dL LAB CHEMISTRY METHOD 11/30/2024 2:02 PM [facility] Blood Venous blood specimen / Unknown Venipuncture / Unknown 11/30/2024 8:56 AM EDT 11/30/2024 8:56 AM EDT Gabriel Gudino MD LAB BLOOD ORDERABLES Final Resul t [facility] [address] [place] [address], [place] [phone] * Depression Screening (12/03/2023) Depression Screening ABSTRACTED Historical Provider HEALTH MAINTENANCE Final Result from Last 3 Months or Most Recently Relevant to Health Maintenance Insurance MEDICARE [facility] MEDICAID [place] Care Teams Communications Assistant Relationship Specialty Start Date End Date Gabriel Gudino MD [address] [place] [address] PCP - General Internal Medicine 08/31/20
--- OUTSIDE RECORDS SUMMARY | 2025-05-19 11:42 | XMS_ITS | Encounter Summary ---
Author Organization [facility] Prior to 04/02/2024 Address [address] [place] [address] Care Team Providers Care Tankroom Tender Name Role Phone Selena Vee MD Primary Care Provider Katiana Raman MD Primary Care Provider Gabriel Robins MD Primary Care Provider [phone] Encounter Details Date Type Department Care Team Description 03/21/2020 Orders Only Adult Medicine [address] [address] Viviane Head PA-C Encounter for screening fecal occult blood testing Social History Tobacco Use Types Packs/Day Years [...] have Coronavirus / COVID-19? No / Unsure 03/16/2020 11:03 AM EDT documented as of this encounter Plan of Treatment Not on file documented as of this encounter Procedures Procedure Name Priority Date/Time Associated Diagnosis Comments CHG BLOOD OCCULT FECAL HGB DETER IA QUAL FECES 1-3 Routine 03/17/2020 1:26 PM EDT Encounter for screening fecal occult blood testing documented in this encounter Results * BLOOD OCCULT QUAL FECAL HEMGLBN (03/17/2020 1:26 PM EDT) OCCULT BLOOD, STOOL NEG INTERNAL CONTROL VALID YES Stool 03/17/2020 1:26 PM EDT Viviane Head PA-C LAB documented in this encounter Visit Diagnoses Diagnosis Encounter for screening fecal occult blood testing documented in this encounter Care Teams Tankroom Tender Relationship Specialty Start Date End Date Selena Vee MD PCP - General Internal Medicine 03/31/15 07/20/20 Katiana Cooley MD PCP - General Internal Medicine 07/21/20 08/30/20 Gabriel Gudino MD [address] [place] [address] PCP - General Internal Medicine 08/31/20 documented as of this encounter
--- OUTSIDE RECORDS SUMMARY | 2025-05-19 11:42 | XMS_ITS | Encounter Summary ---
Author Organization [facility] Prior to 04/02/2024 Address [address] [place] [address] Care Team Providers Care Drier Unloader Name Role Phone Hi Pinedo MD Primary Care Provider Unavail Selena Topete MD Primary Care Provider UnavailKatiana Carr MD Primary Care Provider Unava Gabriel Posadas MD Primary Care Provider [phone] Encounter Details Date Type Department Care Team Description 10/11/2014 Release of Information Medical Records [address] [place] [id number] Abstract, Provider Social History Tobacco Use Types [...] on filedocumented in this encounter Care Teams Drier Unloader Relationship Specialty Start Date End Date Hi Pinedo MD PCP - General Internal Medicine 04/11/14 03/30/15 Selena Vee MD PCP - General Internal Medicine 03/31/15 07/20/20 Katiana Cooley MD PCP - General Internal Medicine 07/21/20 08/30/20 Gabriel Gudino MD [address] [place] [address] PCP - General Internal Medicine 08/31/20 documented as of this encounter
--- OUTSIDE RECORDS SUMMARY | 2025-05-19 11:42 | XMS_ITS | Clinical Summary ---
Author Organization [facility] Address [address] [place] [address] Care Team Providers Care Salesperson Toy Trains And Accessories Name Role Phone Gudino Gabriel Primary Care [...] Encounters Date Type Department Care Team Description 05/11/2025 Telephone [facility] Vascular Surgery [address] [place] [address] Director Of Exhibit Development: Efrain Logan MD from Last 3 Months [...] Sigmoidoscopy Discontinued Medical Devices Implanted Type Area Rv Mechanic Device Identifier Shelf Expiration Date Model / Serial / Lot Graft Aortic Aneurysm Body Proximal Fenestrated Pre Loaded [id number] Zenith - Study - Sna - [id number] Implanted:Qty: 1 on 08/25/2019 by Efrain Caal MD at [facility] Graft N/A: Thoracic [employer] 07/26/2022 [id number] / NA / [id number] Description:INVESTIGATIONAL DEVICE Graft Endovascular Iliac Leg Aaa [id number] Zenith Spiral-Z - [id number] Implanted:Qty: 1 on 08/25/2019 by Efrain Caal MD at [facility] Graft Left: Arterial [employer] 07/08/2022 [id number] / / [id number] Description:LEFT COMMON MEGHAN C Graft Endovascular Iliac Leg Aaa [id number] Zenith Spiral-Z - [id number] Implanted:Qty: 1 on 08/25/2019 by Efrain Caal MD at [facility] Graft Right: Arterial [employer] 07/30/2022 [id number] / / [id number] Description:RIGHT COMMON STARLA AC System Closure Suture Medicated Perclose Proglide 6fr - Sna - [id number] Implanted:Qty: 2 on 08/25/2019 by Efrain Caal MD at [facility] Implant Left: Groin [employer] 05/01/2021 [id number] / NA / [id number] System Closure Suture Medicated Perclose Proglide 6fr - Sna - [id number] Implanted:Qty: 2 on 08/25/2019 by Efrain Caal MD at [facility] Implant Right: Groin [employer] 05/01/2021 [id number] / NA / [id number] System Closure Suture Medicated Perclose Proglide 6fr - [id number] Implanted:Qty: 2 on 08/25/2019 by Efrain Caal MD at [facility] Implant Right: Arterial [employer] 05/01/2021 [id number] / / [id number] Stent Icast Covered 5mm X 22mm X 120cm - [id number] - [id number] Implanted:Qty: 1 on 08/25/2019 by Efrain Caal MD at [facility] Stent Left: Arterial [employer] [facility] 11/06/2021 [id number] / [id number] / Description:LEFT RENAL ARTER Y Stent Vascular Self Expanding Over The Wire [id number] Absolute Pro - [id number] Implanted:Qty: 1 on 08/25/2019 by Efrain Caal MD at [facility] Stent N/A: Arterial [employer] 05/01/2020 [id number] / / [id number] Description:DISTAL SMA Stent Icast Covered 7mm X 22mm X 120cm - [id number] - [id number] Implanted:Qty: 1 on 08/25/2019 by Efrain Caal MD at [facility] Stent N/A: Arterial [employer] [facility] 04/01/2022 [id number] / [id number] / Description:celiac Stent Icast Covered 6mm X 38mm X 120cm - [id number] - [id number] Implanted:Qty: 1 on 08/25/2019 by Efrain Caal MD at [facility] Stent N/A: Arterial [employer] 06/19/2021 [id number] / [id number] / Description:SMA Stent Icast Covered 5mm X 22mm X 120cm - [id number] - [id number] Implanted:Qty: 1 on 08/25/2019 by Efrain Caal MD at [facility] Stent Right: Arterial [employer] [facility] 11/03/2020 [id number] / [id number] / Description:RIGHT RENAL Graft Aortic Aneurysm Leg Body Proximal Bifurcated [id number] Zenith - Study - [id number] Implanted:Qty: 1 on 08/25/2019 by Efrain Caal MD at [facility] N/A: Aorta [employer] 07/26/2022 [id number] / / [id number] Description:INVESTIGATIONAL DEVICE Procedures * Due to [place] [employer] law, this organization might not be sharing negative HIV tests. Procedure Name Priority Date/Time Associated Diagnosis Comments AMB EXTERNAL CT CHEST, OUTSIDE RESULT 04/18/2021 BASIC METABOLIC PANEL Routine 08/26/2019 4:34 AM EDT from Last 3 Months or Most Recently Relevant to Health Maintenance Results * Due to [place] [employer] law, this organization might not be sharing negative HIV tests. * AMB EXTERNAL CT CHEST, OUTSIDE RESULT (04/18/2021) 04/18/2021 us Onbase Scan [place] AMB EXTERNAL RESULT PROCEDURE S Final Result * (ABNORMAL) Basic Metabolic Panel (08/26/2019 4:34 AM EDT) NA 136 135 - 145 mmol/L 08/26/2019 5:46 AM EDT [facility] K 3.8 3.5 - 5.3 mmol/L 08/26/2019 5:46 AM EDT [facility] Cl 103 97 - 110 mmol/L 08/26/2019 5:46 AM EDT [facility] CO2 25 24 - 32 mmol/L 08/26/2019 5:46 AM EDT [facility] BUN 15 7 - 23 mg/dL 08/26/2019 5:46 AM EDT [facility] Creatinine 1.08 0.60 - 1.30 mg/dL 08/26/2019 5:46 AM EDT [facility] Glucose 128(H) 70 - 99 mg/dL 08/26/2019 5:46 AM EDT [facility] Calcium 8.5(L) 8.7 - 10.7 mg/dL 08/26/2019 5:46 AM EDT [facility] Anion Gap 8 5 - 15 08/26/2019 5:46 AM EDT [facility] eGFR Non- 67(L) >=90 mL/min/BSA 08/26/2019 5:46 AM EDT [facility] eGFR 78(L) >=90 mL/min/BSA 08/26/2019 5:46 AM EDT [facility] Comment: Units = [...] MD LAB BLOOD ORDERABLES Final Re sult [facility] [address] [place] [address], from Last 3 Months or Most Recently Relevant to Health Maintenance Insurance MEDICARE [facility] Advance Directives * Full Code (Latest Code Status on File) Date Activated Date Inactivated Comments 08/25/2019 12:30 PM 08/26/2019 7:18 PM * Full Code Date Activated Date Inactivated Comments 08/25/2019 6:27 AM 08/25/2019 12:30 PM Care Teams Salesperson Toy Trains And Accessories Relationship Specialty Start Date End Date Gabriel Gudino [address] [place] [id number] PCP - General Internal Medicine 10/09/20
--- OUTSIDE RECORDS SUMMARY | 2025-05-19 11:42 | XMS_ITS | Encounter Summary ---
Author Organization [facility] Prior to 04/02/2024 Address [address] [place] [address] Care Team Providers Care Equipment Operator Intermodal Yard Name Role Phone Selena Vee MD Primary Care Provider Katiana Raman MD Primary Care Provider Gabriel Robins MD Primary Care Provider [phone] Encounter Details Date Type Department Care Team Description 08/26/2019 [facility] Medical Records [address] [place] [id number] [place] [address] Social History Tobacco Use Types Packs/Day Years [...] on filedocumented in this encounter Care Teams Equipment Operator [employer] Relationship Specialty Start Date End Date Selena Vee MD PCP - General Internal Medicine 03/31/15 07/20/20 Katiana Cooley MD PCP - General Internal Medicine 07/21/20 08/30/20 Gabriel Gudino MD [address] [place] [address] PCP - General Internal Medicine 08/31/20 documented as of this encounter
--- OUTSIDE RECORDS SUMMARY | 2025-05-19 11:42 | XMS_ITS | Encounter Summary ---
Author Organization [facility] [employer] [facility] Prior to 04/02/2024 Address [address] [place] [address] Care Team Providers Care Agency Sales Representative Name Role Phone Selena Vee MD Primary Care Provider Katiana Raman MD Primary Care Provider Gabriel Robins MD Primary Care Provider Encounter Details Date Type Department Care Team Description 09/13/2019 Boil Off Worker Report Medical Records [address] [place] [id number] [place] [address] Social History Tobacco Use Types Packs/Day Years [...] on filedocumented in this encounter Care Teams Agency Sales Representative Relationship Specialty Start Date End Date Seelna Vee MD PCP - General Internal Medicine 03/31/15 07/20/20 Katiana Cooley MD PCP - General Internal Medicine 07/21/20 08/30/20 Gabriel Gudino MD [address] [place] [id number] PCP - General Internal Medicine 08/31/20 documented as of this encounter
--- OUTSIDE RECORDS SUMMARY | 2025-05-19 11:42 | XMS_ITS | Encounter Summary ---
Author Organization [facility] Prior to 04/02/2024 Address [address] [place] [address] Care Team Providers Care Targeting Acquisition Officer Name Role Phone Selena Vee MD Primary Care Provider Katiana Raman MD Primary Care Provider Gabriel Robins MD Primary Care Provider [phone] Encounter Details Date Type Department Care Team Description 12/07/2015 Business Doc Medical Records [address] [place] [id number] Abstract, Provider Social History Tobacco Use Types [...] on filedocumented in this encounter Care Teams Targeting Acquisition Officer Relationship Specialty Start Date End Date Selena Vee MD PCP - General Internal Medicine 03/31/15 07/20/20 Katiana Cooley MD PCP - General Internal Medicine 07/21/20 08/30/20 Gabriel Gudino MD [address] [place] [address] PCP - General Internal Medicine 08/31/20 documented as of this encounter
--- OUTSIDE RECORDS SUMMARY | 2025-05-19 11:42 | XMS_ITS | Encounter Summary ---
Author Organization [facility] Prior to 04/02/2024 Address [address] [place] [address] Care Team Providers Care Promotion Manager Name Role Phone Vadim Vides MD Primary Care Provider Trudy Hi Khan MD Primary Care Provider Unavail Selena Topete MD Primary Care Provider Unavaila Katiana Wood MD Primary Care Provider Unava Gabriel Posadas MD Primary Care Provider [phone] Encounter Details Date Type Department Care Team Description 01/10/2012 Old Medical Records Medical Records [address] [place] [id number] Hi Dominguez MD Social History Tobacco Use Types Packs/Day Years Used Date Smoking Tobacco: Former Cigarettes Q uit: 06/30/2008 Smokeless Tobacco: Never Comments:occasional smoking Alcohol Use Standard Drinks/Week Comments Yes 0 (1 standard drink = 0.6 oz pur e alcohol) on occassion Physical Activity Answer Date Recorded On average, [...] on filedocumented in this encounter Care Teams Promotion Manager Relationship Specialty Start Date End Date Vadim Vides MD PCP - General Internal Medicine 05/06/11 4 Hi Pinedo MD PCP - General Internal Medicine 04/11/14 03/30/15 Selena Vee MD PCP - General Internal Medicine 03/31/15 07/20/20 Katiana Cooley MD PCP - General Internal Medicine 07/21/20 08/30/20 Gabriel Gudino MD [address] [place] [address] PCP - General Internal Medicine 08/31/20 documented as of this encounter
--- OUTSIDE RECORDS SUMMARY | 2025-05-19 11:42 | XMS_ITS | Encounter Summary ---
Author Organization [facility] Prior to 04/02/2024 Address [address] [place] [address] Care Team Providers Care Cyber Reverse Engineer Name Role Phone Selena Vee MD Primary Care Provider Katiana Raman MD Primary Care Provider Gabriel Robins MD Primary Care Provider [phone] Encounter Details Date Type Department Care Team Description 07/17/2020 Old Medical Records Medical Records [address] [place] [address] Abstract, Provider Social History Tobacco Use Types [...] on filedocumented in this encounter Care Teams Cyber Reverse Engineer Relationship Specialty Start Date End Date Selena Vee MD PCP - General Internal Medicine 03/31/15 07/20/20 Katiana Cooley MD PCP - General Internal Medicine 07/21/20 08/30/20 Gabriel Gudino MD [address] [place] [address] PCP - General Internal Medicine 08/31/20 documented as of this encounter
--- OUTSIDE RECORDS SUMMARY | 2025-05-19 11:42 | XMS_ITS | Encounter Summary ---
Author Organization [facility] [email or web address] 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 No / Unsure 09/20/2020 1:39 PM EDT documented as of this encounter Plan of Treatment Not on file documented as of this encounter Visit Diagnoses Not on filedocumented in this encounter Care Teams Press Setup Operator Relationship Specialty Start Date End Date Gabriel Gudino MD [address] [place] [address] PCP - General Internal Medicine 08/31/20 documented as of this encounter
== END 2025-05-19 10:22 | disposition home or self-care (01) ==
LOC: HO.HVS 09:47
PROVIDERS: PCP Internal Medicine; Visit Provider Surgery Vascular Surgery
DX: I71.40 Abdominal aortic aneurysm, without rupture, unspecified (principal); I65.23 Occlusion and stenosis of bilateral carotid arteries
CPT/HCPCS: 99214

== ENCOUNTER → 2025-05-19 09:47 | Outpatient (BNVA) | payer MEDICARE, SELFPAY | PROVIDERS: PCP Internal Medicine; Visit Provider Surgery Vascular Surgery | DX: I65.23 Occlusion and stenosis of bilateral carotid arteries (principal); I71.40 Abdominal aortic aneurysm, without rupture, unspecified | CPT/HCPCS: 99212 ==